=== PATIENT | male | born 1935 | race Caucasian/White ===

== ENCOUNTER 2020-09-09 16:40 | Outpatient (CLI) | payer OTHER, MEDICARE, SELFPAY | END 2020-09-09 16:41 | disposition home or self-care (01) | LOC: ANHCOVIDVC 16:41 | PROVIDERS: PCP Family Medicine Adolescent Medicine | DX: Z23 Encounter for immunization (principal) | CPT/HCPCS: 0001A; 91300 ==

== ENCOUNTER 2020-09-30 16:47 | Outpatient (CLI) | payer OTHER, MEDICARE, SELFPAY | END 2020-09-30 16:48 | LOC: ANHCOVIDVC 16:47 | PROVIDERS: PCP Family Medicine Adolescent Medicine | DX: Z23 Encounter for immunization (principal) | CPT/HCPCS: 0001A; 0002A; 91300 ==

== ENCOUNTER 2021-02-20 08:47 | Inpatient (IN) | payer OTHER, SELFPAY ==
[2021-02-20] VITALS (15 sets, daily range): BP systolic 115–149; BP diastolic 52–75; PULSE 72–97; RESP 14–24; TEMP 36.2–37.2; O2SAT 98–100; BMI 19.0
--- NOTE | ~2021-02-20 | CT_ITS ---
EXAMINATION: CT abdomen pelvis w con INDICATION: Abdominal pain and constipation TECHNIQUE: Computed tomographic images of the abdomen and pelvis were obtained after the administrati on of 100 cc of Omnipaque 350 intravenous contrast. The dose-length product (DLP) was 258.65 mGy-cm. Automated exposure control and iterative reconstruction technique were employed. COMPARISON: None available FINDINGS: Minimal dependent atelectasis is present in the lung bases. The heart size is normal. The l iver, gallbladder, and adrenal glands are normal. Punctate calcifications in an otherwise normal sple en likely represent healed granulomatous disease. Calcifications in the pancreas are consistent with chronic pancreatitis. There is an intraductal calcification in the body of the pancreas which causes ductal dilatation and atrophy in the tail of the pancreas. Cysts of the kidneys measure up to 2.5 cm on the left. There is calcified atherosclerosis of the aorta and many of the other arteries. No patho logically enlarged abdominal or pelvic lymph nodes are identified. A moderate volume of colonic stool is present. The appendix is normal. Colonic diverticulosis is present without evidence of diverticul itis. There are no dilated loops of bowel. There appears to be a small defect in the posterior wall o f the duodenal bulb with a small amount of adjacent fluid and tiny foci of gas. No definite surroundi ng inflammatory change is identified. There is severe lumbar spondylosis. IMPRESSION: 1. Constipation 2. Tiny defect in the posterior wall of the duodenal bulb without significant surrounding inflammator y change. Findings favor a diverticulum over ulceration. 3. Chronic pancreatitis with intraductal stone of the mid body causing ductal dilatation and atrophy in the pancreatic tail. Reviewed, dictated and finalized at location A. IMPRESSION: 1. Constipation 2. Tiny defect in the posterior wall of the duodenal bulb without significant s urrounding inflammatory change. Findings favor a diverticulum over ulceration. 3. Chronic pancreatitis with intraductal stone of the mid body causing ductal d ilatation and atrophy in the pancreatic tail.
--- NOTE | 2021-02-20 08:52 | ED.ABDPAIN ---
HPI - Abdominal Pain General Chief Complaint: Abdominal Pain Stated Complaint: CONSTIPATION Source: RN notes reviewed History of Present Illness HPI narrative: Patient presents emergency department from home f via EMS for abdominal pain. Patient states that he has been experiencing abdominal pain for the past 2 days pain is described as cramping in the bilateral lower abdomen states was associated with 1 episode nausea and vomiting last night but denies any nausea currently patient states he has been constipated with no bowel movement for the past 1 week. States he does take a daily stool softener but not take it this morning he denies any fever chills chest pain shortness of breath or any other symptoms states he had been on pain medicine last month since getting his left knee replaced but is not been on any pain medication for the past several Related Data Home Medications Medication Instructions Recorded Confirmed hydrochlorothiazide 25 mg tablet 25 mg PO DAILY 12/02/20 levothyroxine 112 mcg capsule 112 mcg PO DAILY 12/02/20 memantine 10 mg tablet 10 mg PO QPM 12/02/20 quetiapine 25 mg tablet 25 mg PO QHS 12/02/20 quinapril 40 mg tablet 40 mg PO DAILY 12/02/20 docusate sodium 100 mg PO DAILY 02/20/21 latanoprost drp 02/20/21 timolol maleate drp 02/20/21 Allergies Allergy/AdvReac Type Severity Reaction Status Date / Time No Known Allergies Allergy Verified 02/20/21 08:52 Review of Systems Review of Systems: Gen.: Denies fevers or chills ENT: Denies congestion Respiratory: Denies shortness of breath or cough CV: Denies chest pain or palpitations GI: See HPI denies burning, urgency, frequency or hematuria Musculoskeletal: Denies back pain or muscle pain Neuro: Denies numbness, tingling, weakness or focal weakness Skin: Denies rash Except as documented, all other systems reviewed and negative [facility] Past Medical History Medical History Arthritis Hypertension Stroke Thyroid disorder Family History Family History (Updated 12/02/20 @ 13:41 by Holli Alcantar MA) Mother Hypertension Cerebrovascular accident Sibling Hypertension Social History Social History (Updated 02/20/21 @ 08:53 by Mars Amor DO) Smoking status: Never smoker Exam Narrative: APPEARANCE: No acute distress, nontoxic, resting in bed HEENT: Normocephalic, atraumatic, OMM RESPIRATORY: No respiratory distress, clear to auscultation bilaterally with no rhonchi wheezing or rales CARDIOVASCULAR: RRR s murmur ABDOMINAL: Soft nondistended tender palpation right lower quadrant left lower quadrant no tenderness right upper quadrant left upper quadrant no rebound or guarding Rectal: No hemorrhoids or fissures black stool present that is Hemoccult positive MUSCULOSKELETAl: Moves all extremities. No clubbing, cyanosis or edema. NEURO: Awake and alert. Following commands, speech normal, no focal deficits SKIN:: Warm, dry. Normal Color PSYCHIATRIC: Normal affect/mood Course Course Emergency Course: Discussed with Dr. Lund who agrees with consult Discussed with Dr. Alonso for hospitalist service agrees with admission at this time agrees with plan for transfusion 2 units PRBC Discussed with patient and family results of workup and diagnosis. Discussed need for admission. Patient and family understand and agree to current treatment plan Vital Signs Vital signs: Vital Signs Temperature 98.9 F 02/20/21 08:43 Pulse Rate 92 02/20/21 08:43 Respiratory Rate 15 02/20/21 08:43 Blood Pressure 149/75 H 02/20/21 08:43 Pulse Oximetry 100 02/20/21 08:43 Temperature 97.2 F L 02/20/21 09:43 Pulse Rate 88 02/20/21 09:43 Respiratory Rate 24 H 02/20/21 09:43 Blood Pressure 122/70 02/20/21 09:43 Pulse Oximetry 100 02/20/21 09:43 MDM - Abdominal Pain Lab Data Result diagrams: 02/20/21 09:08 02/20/21 09:08 Labs: La
--- NOTE | 2021-02-20 08:59 | PC.NURSE ---
Patient informed that urine sample is needed. He tells me he is unable to go at this time. I informed patient that I will take him to restroom in about 20 minutes to provided urine.
--- NOTE | 2021-02-20 09:01 | PC.NURSE ---
Patient was asked about the medications he takes at home. Patient tells me he does not know what medications he takes and that his son is apparently coming to the ED with a list of medications for the patient.
[2021-02-20 09:14] LABS: Basophils Percent Auto 0.3 % (0.2-1.2); Eosinophils Percent Auto 0.5 % (0-4.4); Hematocrit 21.4 % (42.0-52.0); Immature Granulocyte Absolute 0.04 K/mm3 (0.00-0.031); Immature Granulocyte Percent A 0.5 % (0-0.5); Lymphocytes Absolute Auto 1.09 K/mm3 (0.9-3.2); Lymphocytes Percent Auto 14.9 % (18.3-44.2); Mean Corpuscular HGB Conc 31.8 g/dl (32-36); Mean Corpuscular Hemoglobin 23.1 pg (26-34); Mean Corpuscular Volume 72.8 fl (80-100); Mean Platelet Volume 8.6 fl (7.4-10.4); Monocytes Absolute Auto 0.6 K/mm3 (0.1-0.6); Monocytes Percent Auto 8.5 % (2.6-8.5); Neutrophils Absolute Auto 5.5 K/mm3 (1.3-6.7); Neutrophils Percent Auto 75.3 % (45.5-73.1); Platelet Count Result 555 k/mm3 (150-375); Red Blood Count 2.94 M/mm3 (4.6-6.20); White Blood Count 7.3 K/mm3 (4.5-10.0)
[2021-02-20 09:20] LABS: Hemoglobin 6.8 g/dL (14.0-18.0)
--- NOTE | 2021-02-20 09:24 | ECG_ITS ---
Measurements Intervals [place] Rate: 99 P: 79 WV: 188 QRS: -74 QRSD: 153 T: 86 QT: 387 QTc: 498 Interpretive Statements SINUS RHYTHM VENTRICULAR PREMATURE COMPLEXES RIGHT BUNDLE BRANCH BLOCK LEFT ANTERIOR FASCICULAR BLOCK BASELINE ARTIFACT- II, III, AVR, AVF, V2-V6 ABNORMAL ECG Electronically Signed On 02-20-2021 14:19:44 CDT by [place] Sal D.O.
[2021-02-20 09:38] LABS: Alanine Aminotransferase 13 U/L (4-50); Albumin Level 3.8 g/dL (3.5-5.1); Alkaline Phosphatase 109 U/L (38-126); Anion Gap 11 mmol/L (8-16); Aspartate Amino Transferase 23 U/L (17-59); Bilirubin,Total 0.4 mg/dL (0.2-1.3); Blood Urea Nitrogen 22 mg/dL (9-20); Calcium 9.4 mg/dL (8.4-10.2); Carbon Dioxide 29 mmol/L (22-30); Chloride 82 mmol/L (98-107); Estimated CRCL calculation 35 ml/min; Estimated Glomerular Filt Rate 58; Glucose 140 mg/dL (65-110); Lipase 28 U/L (23-300); Potassium 3.4 mmol/L (3.4-5.0); Sodium 122 mmol/L (137-145)
[2021-02-20 10:03] LABS: INR 0.9; Prothrombin Time 11.9 Seconds (11.1-14.7)
[2021-02-20 10:04] LABS: Add Urine Microscopic? YES; Amorphous Sediment Urine Few; Appearance Urine Cloudy (Clear); Bacteria Urine Trace /hpf; Bilirubin Urine Negative (Negative); Blood Urine Negative (Negative); Color Urine Yellow (Yellow); Glucose Urine UA Negative (Negative); Ketones Urine 1+ mg/dL (Negative); Leukocyte Esterase Ur Negative LEU/UL (Negative); Nitrate Urine Negative (Negative); Partial Thromboplastin Time 26.4 SECONDS (22.3-36.8); Protein Urine Negative (Negative); RBC Urine 0-2 /hpf (0-2); Specific Grav Ur 1.014 (1.001-1.035); Urobilinogen Urine Negative mg/dL (<2.0); WBC Urine 0-3 /hpf
[2021-02-20 11:39] LABS: Hematocrit 21.6 % (42.0-52.0)
[2021-02-20 11:44] LABS: Hemoglobin 6.9 g/dL (14.0-18.0)
--- NOTE | 2021-02-20 11:55 | PC.NURSE ---
Viktor Mai (son and POA): [phone] primary contact.
--- NOTE | 2021-02-20 13:15 | PM.IMHP ---
H&P: HPI History of Present Illness Date/Time: 02/20/21 13:15 <Tanja Adams PA-C - Last Filed: 02/20/21 22:33> Chief Complaint: Abdominal pain. <Tanja Adams PA-C - Last Filed: 02/20/21 22:33> Narrative: This is an 85-year-old male with history of stroke, hypertension, and hypothyroidism who presented to the emergency department earlier today via EMS from home for evaluation of abdominal pain. The patient had his left knee replaced about a month ago for which he has been taking hydrocodone. Despite taking stool softeners he has been constipated and has not been able to have a bowel movement for approximately 1 week. Over the last couple of days he has had increasing lower abdominal discomfort that he has a hard time describing but he believes it is due to the constipation. He has also had nausea and decreased appetite and a couple of episodes of emesis as well. Hemoglobin and hematocrit were 6.8 and 21.3 respectively in the emergency department with an MCV of 72.8. With further questioning he does mention being placed on iron supplementation after his knee surgery and since that time his stools have been dark. He was not aware of any gross blood in the stool, however he was Hemoccult positive on rectal exam in the emergency department. He has been symptomatic with regards to the anemia with lightheadedness and dizziness over the past couple of weeks. He also reports 2 syncopal episodes at home within the last several days though reports no injuries or head trauma. No significant epigastric discomfort, belching, or bloating. He denies hematemesis. <Tanja Adams PA-C - Last Filed: 02/20/21 22:33> Review of Systems Review of Systems: Twelve systems were reviewed with pertinent positives and negatives as per HPI. Patient has lost weight within the last year, down to 126 from 158 lb. He attributes that to the fact that he had a majority of his teeth pulled is wearing dentures, as well as decreased appetite since having his knee replaced in January 2021. He has no known history of malignancy. No fever, chills, or sweats. No recent cold or flu symptoms. He denies chest pain pleuritic pain. No cough or shortness of breath. No hematuria. Except as documented, all other systems were reviewed and are negative. <Tanja Adams PA-C - Last Filed: 02/20/21 22:33> [facility] Past Medical History Medical History: Medical History (Updated 02/21/21 @ 09:39 by Amado Nix MD) Acute blood loss anemia Anemia Arthritis Carotid artery disease Carotid Doppler in September 2017 showed 50 to 69% stenosis in the right internal carotid artery. Cerebrovascular accident (09/2017) Chronic hyponatremia Dementia Glaucoma Hyperlipidemia Hypertension Hypothyroidism Kidney stones <Tanja Adams PA-C - Last Filed: 02/20/21 22:33> Surgical History Surgical History: Surgical History History of cataract extraction (2013) History of vasectomy <Tanja Adams PA-C - Last Filed: 02/20/21 22:33> Family History Family History: Family History Mother Hypertension Cerebrovascular accident Sibling Hypertension Diabetes mellitus <Tanja Adams PA-C - Last Filed: 02/20/21 22:33> Social History Social History: Social History (Updated 02/20/21 @ 22:29 by Tanja Adams PA-C) Social History: The patient lives in [place] with his . Retired tow truck driver. Previously smokes cigarettes and to tobacco but quit over 10 years ago. Smoked 1 to 2 cigars a day up until 02/06/2021. No alcohol or illicit substance abuse. Surrogate decision maker: Viktor Mai, son. Code status: Full code. <Tanja Adams PA-C - Last Filed: 02/20/21 22:33> Meds Home Medications and Allergies Home medications: Home Medications Medication Instructions Recorded Confi
[2021-02-20] MEDS: SODIUM CHLORIDE 0.9% IV 250 ML 30 ML IV CONT (14:09)
[2021-02-20 14:10] LABS: Hematocrit 21.3 % (42.0-52.0)
[2021-02-20 14:19] LABS: Hemoglobin 6.8 g/dL (14.0-18.0)
--- NOTE | 2021-02-20 14:36 | ADMGEN ---
This patient, Blade Mai, was admitted to Medical Room 342-01. Patient/family oriented to hospital policies and general routines including ID bracelet, bed and alarms, visiting hours, pain management, procedures, bathroom and other care routines, personal items, smoking policy, room service/diet, and visiting hours. Information on how to activate the Rapid Response Team has been discussed. Patient/Family are encouraged to report perceived risks to care and to ask questions if they do not understand what they are told or what they should do.
--- NOTE | 2021-02-20 17:03 | WPDGICN ---
Assessment and Plan Assessment and plan (1) GI bleed: Code(s): K92.2 - Gastrointestinal hemorrhage, unspecified Status: Acute Assessment and Plan: we will proceed with egd and colonoscopy Monday, he is getting blood transfusion also noted possible abnormal finding in duodenum (ulcer vs dicerticula) on protonix (2) Acute blood loss anemia: Code(s): D62 - Acute posthemorrhagic anemia Status: Acute Assessment and Plan: continue to trend h/h and for signs of bleeding (3) Hyponatremia: Code(s): E87.1 - Hypo-osmolality and hyponatremia Status: Acute (4) Constipation: Code(s): K59.00 - Constipation, unspecified Status: Acute Assessment and Plan: probably from narcotic use will give bowel prep and also proceed with colonoscopy GI Consult Note Consult date/time: 02/20/21 17:03 Reason for consult: gib, acute blood loss anemia HPI: Blade Mai is a 85 year old male with history of HTN, knee surgery last month for which he took hydrocodone and iron but not longer using. He came here with generalized weakness, also about 7 days ago noted dark stools and has not had more BM's since (he became constipation after using narcotics). He had colonoscopy about 25 years go. Also had weight loss ~ 20 lb after removed some teeth and unable to chew and eat well. Yesterday had moderated epigastric discomfort. Labs showed microcytic anemia with hb 6.8 and now he is getting blood transfusion, BUN 22, creat 1.2. CT a/p reviewed, Constipation, tiny defect in the posterior wall of the duodenal bulb without significant surrounding inflammatory change. Findings favor a diverticulum over ulceration, chronic pancreatitis. He is comfortable now, no more abdominal pain. Review of Systems Constitutional: Constitutional: Reports weakness Eyes: Eyes: Denies blurry vision ENT: Reports Normal hearing present Cardiovascular: Cardiovascular: Denies chest pain Respiratory: Respiratory: Denies hemoptysis Gastrointestinal: Gastrointestinal: Reports abdominal pain and Reports constipation Genitourinary: Genitourinary: Denies dysuria Musculoskeletal: Musculoskeletal: Denies neck pain Integumentary/Breasts: Skin/Breast: Denies dry skin Neurologic: Denies headache(s) Psychiatric: Psychiatric: Reports no additional psychiatric complaints PMFSH Past Medical History Medical History (Updated 02/21/21 @ 09:39 by Amado Nix MD) Acute blood loss anemia Anemia Arthritis Carotid artery disease Carotid Doppler in September 2017 showed 50 to 69% stenosis in the right internal carotid artery. Cerebrovascular accident (09/2017) Chronic hyponatremia Dementia Glaucoma Hyperlipidemia Hypertension Hypothyroidism Kidney stones Surgical History Surgical History History of cataract extraction (2013) History of vasectomy Family History Family History Mother Hypertension Cerebrovascular accident Sibling Hypertension Diabetes mellitus Social History Social History (Updated 02/20/21 @ 22:29 by Tanja Adams PA-C) Social History: The patient lives in [place] with his . Retired water truck driver. Previously smokes cigarettes and to tobacco but quit over 10 years ago. Smoked 1 to 2 cigars a day up until 02/06/2021. No alcohol or illicit substance abuse. Surrogate decision maker: Viktor Mai, son. Code status: Full code. Meds Home Medications and Allergies Home Medications Medication Instructions Recorded Confirmed Type hydrochlorothiazide 25 mg tablet 25 mg PO DAILY 12/02/20 02/20/21 History levothyroxine 112 mcg capsule 112 mcg PO DAILY 12/02/20 02/20/21 History memantine 10 mg tablet 10 mg PO QPM 12/02/20 02/20/21 History quetiapine 25 mg tablet 12.5 mg PO BID 12/02/20 02/20/21 History quinapril 40 mg tablet 20 mg PO DAILY 12/02/20
[2021-02-20] MEDS: PANTOPRAZOLE SODIUM IV 40 MG VIAL IV PUSH ×2 (17:12→20:06)
[2021-02-20] MEDS: MEMANTINE 10 MG TABLET PO (17:12)
[2021-02-20] MEDS: QUEtiapine FUMARATE 12.5 MG TABLET PO (17:12)
[2021-02-20] MEDS: LATANOPROST 0.005% OP SOLN 2.5 ML BTL 1 DROP EACH EYE (20:05)
[2021-02-20 20:11] LABS: Sodium Urine Random 73 meq/L
[2021-02-20 22:55] LABS: Hematocrit 27.2 % (42.0-52.0); Hemoglobin 9.1 g/dL (14.0-18.0)
[2021-02-20 23:07] LABS: Anion Gap 10 mmol/L (8-16); Blood Urea Nitrogen 19 mg/dL (9-20); Calcium 9.1 mg/dL (8.4-10.2); Carbon Dioxide 28 mmol/L (22-30); Chloride 85 mmol/L (98-107); Estimated CRCL calculation 34 ml/min; Estimated Glomerular Filt Rate > 60; Glucose 102 mg/dL (65-110); Potassium 3.3 mmol/L (3.4-5.0); Sodium 123 mmol/L (137-145)
[2021-02-21] MEDS: SODIUM CHLORIDE 0.9% IV 1,000 ML 60 ML IV CONT ×2 (01:27→20:17)
[2021-02-21] MEDS: POTASSIUM CHLORIDE 20 MEQ TABLET PO (01:28)
[2021-02-21 03:17] LABS: Alanine Aminotransferase 12 U/L (4-50); Albumin Level 3.5 g/dL (3.5-5.1); Alkaline Phosphatase 101 U/L (38-126); Anion Gap 10 mmol/L (8-16); Aspartate Amino Transferase 22 U/L (17-59); Basophils Percent Auto 0.5 % (0.2-1.2); Bilirubin,Total 1.4 mg/dL (0.2-1.3); Blood Urea Nitrogen 19 mg/dL (9-20); Carbon Dioxide 26 mmol/L (22-30); Chloride 87 mmol/L (98-107); Eosinophils Absolute Auto 0.1 K/mm3 (0-0.3); Eosinophils Percent Auto 1.2 % (0-4.4); Estimated CRCL calculation 34 ml/min; Estimated Glomerular Filt Rate > 60; Glucose 94 mg/dL (65-110); Hematocrit 27.4 % (42.0-52.0); Immature Granulocyte Absolute 0.04 K/mm3 (0.00-0.031); Immature Granulocyte Percent A 0.5 % (0-0.5); Lymphocytes Absolute Auto 1.25 K/mm3 (0.9-3.2); Lymphocytes Percent Auto 16.7 % (18.3-44.2); Magnesium 1.8 mg/dL (1.6-2.3); Mean Corpuscular HGB Conc 32.8 g/dl (32-36); Mean Corpuscular Hemoglobin 25.2 pg (26-34); Mean Corpuscular Volume 76.8 fl (80-100); Mean Platelet Volume 8.3 fl (7.4-10.4); Monocytes Absolute Auto 0.9 K/mm3 (0.1-0.6); Monocytes Percent Auto 11.4 % (2.6-8.5); Neutrophils Absolute Auto 5.2 K/mm3 (1.3-6.7); Neutrophils Percent Auto 69.7 % (45.5-73.1); Platelet Count Result 435 k/mm3 (150-375); Potassium 3.4 mmol/L (3.4-5.0); Red Blood Count 3.57 M/mm3 (4.6-6.20); Red Cell Distribution Width 16.8 % (11.5-14.5); Sodium 123 mmol/L (137-145); White Blood Count 7.5 K/mm3 (4.5-10.0)
[2021-02-21] MEDS: LEVOTHYROXINE SODIUM 112 MCG TABLET PO (05:50)
[2021-02-21 06:00] VITALS: BP 129/58; PULSE 80; RESP 14; TEMP 36.7; O2SAT 97
[2021-02-21 09:38] VITALS: BP 110/52
--- NOTE | 2021-02-21 09:41 | WPDGIPROGNO ---
Progress Note: A&P Assessment and Plan (1) GI bleed: Code(s): K92.2 - Gastrointestinal hemorrhage, unspecified Status: Acute Assessment and Plan: plan for egd and colonoscopy tomorrow hb up after blood transfusion, no more obvious signs of bleeding (2) Acute blood loss anemia: Code(s): D62 - Acute posthemorrhagic anemia Status: Acute Assessment and Plan: trend h/h scopes tomorrow (3) Constipation: Code(s): K59.00 - Constipation, unspecified Status: Acute Assessment and Plan: will give extra mag citrate tonight (4) Hyponatremia: Code(s): E87.1 - Hypo-osmolality and hyponatremia Status: Acute Assessment and Plan: by primary, low but stable Subjective Date/time seen: 02/21/21 09:41 Interval history: no more abdominal pain, he is comfortable and feeling better after blood transfusion Review of Systems Review of Systems: All systems reviewed & are unremarkable except as noted in HPI and below Exam Const: General: comfortable and no acute distress HENMT: General nose exam: Normal nares present Eyes: General: appearance normal, both eyes and all related structures Neck: Neck: no JVD Resp: Auscultation: clear to auscultation bilaterally Cardio: Rate: regular rate Rhythm: regular rhythm GI: Inspection: non-distended GI Palp: Yes Soft to palpation and No Tenderness to palpation present (GI) Auscultation: normal bowel sounds Skin: General skin exam: normal color Neuro: Speech: normal speech Motor exam (neuro): Normal motor muscle tone present throughout Extrem: General: normal to inspection Psych: Mental Status: mental status grossly normal Objective Data Vital Signs Vital Signs: Vital Signs - 24 hr 02/20/21 09:43 02/20/21 11:57 02/20/21 14:27 Temperature 97.2 F L 97.8 F 97.3 F L Pulse Rate 88 88 81 Respiratory Rate 24 H 15 16 Blood Pressure 122/70 121/67 121/62 Pulse Oximetry 100 98 100 02/20/21 14:40 02/20/21 15:30 02/20/21 15:40 Temperature 97.4 F L 98 F Pulse Rate 90 86 Respiratory Rate 16 16 Blood Pressure 120/56 L 116/70 Pulse Oximetry 100 99 100 02/20/21 16:40 02/20/21 16:50 02/20/21 18:50 Temperature 97.9 F 97.9 F 98.4 F Pulse Rate 86 86 79 Respiratory Rate 14 16 20 Blood Pressure 116/64 116/64 133/56 L Pulse Oximetry 100 100 100 02/20/21 19:05 02/20/21 19:50 02/20/21 20:05 Temperature 98.1 F 98.5 F 98.2 F Pulse Rate 88 75 85 Respiratory Rate 16 16 16 Blood Pressure 115/64 128/52 L 135/65 Pulse Oximetry 100 100 98 02/20/21 21:05 02/20/21 21:31 02/21/21 06:00 Temperature 97.4 F L 97.2 F L 98.0 F Pulse Rate 72 80 80 Respiratory Rate 14 14 14 Blood Pressure 136/56 L 123/59 L 129/58 L Pulse Oximetry 98 100 97 Intake/Output Intake/Output: Intake & Output 02/18/21 02/19/21 02/20/21 02/21/21 23:59 23:59 23:59 23:59 Intake Total 752 487 Output Total 480 250 Balance 272 237 Meds/Results Medications: Active Medications Generic Name Dose Route Start Last Admin Trade Name Freq PRN Reason Stop Dose Admin Bisacodyl 20 mg 02/21/21 16:00 Bisacodyl 5 Mg Tablet Ec PO 02/21/21 16:01 ONCE ONE Docusate Sodium 100 mg 02/21/21 09:00 Docusate Sodium 100 Mg Capsule PO DAILY WARD Sodium Chloride 1,000 mls @ 60 mls/hr 02/21/21 00:35 02/21/21 05:36 Normal Saline Iv IV CONT 60 mls/hr .[id number] WARD Infusion Latanoprost 1 drop 02/20/21 21:00 02/20/21 20:05 Latanoprost 0.005% Op Soln 2.5 Ml Btl EACH EYE 1 drop HS WARD Administration Levothyroxine Sodium 112 mcg 02/21/21 06:30 02/21/21 05:50 Levothyroxine Sodium 112 Mcg Tablet PO 112 mcg DAILY@0630 WARD Administration Lisinopril 20 mg 02/21/21 09:00 Lisinopril 20 Mg Tablet PO DAILY WARD Magnesium Citrate 300 ml 02/22/21 04:00 Magnesium Citrate 300 Ml Btl PO 02/22/21 04:01 ONCE ONE Pantoprazole Sodium 40 mg 02/20/21 21:00 02/20/21 20:06 Pantopra
[2021-02-21] MEDS: DOCUSATE SODIUM 100 MG CAPSULE PO (09:45)
[2021-02-21] MEDS: QUEtiapine FUMARATE 12.5 MG TABLET PO (09:45)
[2021-02-21] MEDS: lisinopriL 20 MG TABLET PO (09:45)
[2021-02-21] MEDS: TIMOLOL MALEATE 0.5% OP SOLN 5 ML BOTTLE 1 DROP EACH EYE (09:45)
--- NOTE | 2021-02-21 10:54 | PC.NURSE ---
unable to give 0900 protonix on time, pharmacy notified
--- NOTE | 2021-02-21 11:48 | PM.IMPN ---
Progress Note: A&P Assessment and Plan (1) GI bleed: Code(s): K92.2 - Gastrointestinal hemorrhage, unspecified Status: Acute Assessment and Plan: Concerning for upper GI bleed with dark, Hemoccult-positive stools. He has been started on IV Protonix 40 mg b.i.d. and will be transfused to a stable hemoglobin. NPO after midnight for possible endoscopy tomorrow. Dr. Nix has been consulted and his input is appreciated. (2) Hyponatremia: Code(s): E87.1 - Hypo-osmolality and hyponatremia Status: Acute Assessment and Plan: Patient has chronic hyponatremia on review of previous records and despite this he remains on hydrochlorothiazide. He is lower than what he typically runs today, however. He will be cautiously hydrated overnight as he may be a bit dry. Check TSH, urine and serum osmolalities, as well as urine sodium and creatinine. Continue to monitor sodium closely. (3) Constipation: Code(s): K59.00 - Constipation, unspecified Status: Acute Assessment and Plan: Patient will be going through bowel prep for endoscopy. (4) Dementia: Code(s): F03.90 - Unspecified dementia without behavioral disturbance Status: Acute Assessment and Plan: Continue memantine and quetiapine at bedtime. (5) Hypothyroidism: Code(s): E03.9 - Hypothyroidism, unspecified Status: Acute Assessment and Plan: Continue levothyroxine and check TSH. (6) Hypertension: Code(s): I10 - Essential (primary) hypertension Status: Acute Assessment and Plan: Blood pressures were reviewed and they are stable. Monitor closely as hydrochlorothiazide is on hold given hyponatremia. Scheduled for the EGD and colon exam in the morning. Subjective Date/time seen: 02/21/21 11:48 Patient was seen during the morning rounds today. No more abdominal pain. He is feeling more comfortable and feeling better after receiving blood transfusion. No shortness of breath or chest pain. No abdominal pain, no nausea vomiting. Mood stable. Review of Systems Review of Systems: All systems reviewed & are unremarkable except as noted in HPI and below (the history and physical examination.) Exam Narrative: General: Thin elderly male in the semi-Pimentel position in bed no distress. Weight: 55 kg. BMI: 19.0. HEENT: Normocephalic, atraumatic. PERRL, EOMI. Sclerae anicteric. Upper teeth she and a majority of the bottom teeth have been extracted. Moist mucous membranes. Neck: Supple. No JVD. Respiratory: Lungs are clear to auscultation bilaterally. Cardiovascular: Regular rate and rhythm with S1-S2. Gastrointestinal: Abdomen is soft, flat, and nondistended with positive bowel sounds. He is tender to palpation throughout the lower abdomen. No voluntary guarding or rebound tenderness. Rectal: Black stool, Hemoccult positive. Skin: Warm and dry. No rash or lesions on limited exam. Extremities: No cyanosis, clubbing, or edema. Radial and pedal pulses intact. Neurological: Alert. Cranial nerves 2-12 are grossly intact. No gross focal deficits to casual conversation. Psychiatric: Pleasant and cooperative with normal mood and affect. Objective Data Vital Signs Vital Signs: Vital Signs - 24 hr 02/20/21 11:57 02/20/21 14:27 02/20/21 14:40 Temperature 36.6 C 36.3 C L 36.3 C L Pulse Rate 88 81 90 Respiratory Rate 15 16 16 Blood Pressure 121/67 121/62 120/56 L Pulse Oximetry 98 100 100 02/20/21 15:30 02/20/21 15:40 02/20/21 16:40 Temperature 36.6 C 36.6 C Pulse Rate 86 86 Respiratory Rate 16 14 Blood Pressure 116/70 116/64 Pulse Oximetry 99 100 100 02/20/21 16:50 02/20/21 18:50 02/20/21 19:05 Temperature 36.6 C 36.9 C 36.7 C Pulse Rate 86 79 88 Respiratory Rate 16 20 16 Blood Pressure 116/64 133/56 L 115/64 Pulse Oximetry 100 100 100 02/20/21 19:50 02/20/21 20:05 02/20/21 21:05 Temperature 36.9 C 36.8 C 36.3 C L Pulse
[2021-02-21] MEDS: PANTOPRAZOLE SODIUM IV 40 MG VIAL IV PUSH ×2 (12:20→20:27)
[2021-02-21 14:00] VITALS: BP 150/78; PULSE 87; RESP 17; TEMP 36.6; O2SAT 100
[2021-02-21] MEDS: BISACODYL 5 MG TABLET EC 20 MG PO (17:37)
[2021-02-21] MEDS: polyethylene glycoL 3350 238 GM BOTTLE PO (18:28)
--- NOTE | 2021-02-21 18:40 | PC.NURSE ---
patient refused to take 1700 seroquel, he is worried that his PCP has taken him off of it and does not want to resume it here if he does not need to. I have tried to call his son to get a medication list to confirm whether he takes it at home still or not, but have gotten no answer.
[2021-02-21 19:47] VITALS: BP 152/51; PULSE 64; RESP 17; TEMP 37; O2SAT 99
[2021-02-21] MEDS: MAGNESIUM CITRATE 300 ML BTL 150 ML PO (20:19)
[2021-02-21] MEDS: LATANOPROST 0.005% OP SOLN 2.5 ML BTL 1 DROP EACH EYE (20:26)
[2021-02-22 03:55] VITALS: BP 122/70; PULSE 66; RESP 17; TEMP 36.6; O2SAT 100
[2021-02-22] MEDS: MAGNESIUM CITRATE 300 ML BTL PO (05:00)
[2021-02-22] MEDS: ONDANSETRON INJ 4 MG/2 ML VIAL IV PUSH (05:19)
[2021-02-22 06:16] LABS: Hematocrit 29.6 % (42.0-52.0); Hemoglobin 9.7 g/dL (14.0-18.0); Mean Corpuscular HGB Conc 32.8 g/dl (32-36); Mean Corpuscular Volume 76.3 fl (80-100); Mean Platelet Volume 8.8 fl (7.4-10.4); Platelet Count Result 566 k/mm3 (150-375); Red Blood Count 3.88 M/mm3 (4.6-6.20); Red Cell Distribution Width 16.9 % (11.5-14.5); White Blood Count 10.6 K/mm3 (4.5-10.0)
[2021-02-22 06:29] LABS: Alanine Aminotransferase 11 U/L (4-50); Albumin Level 3.5 g/dL (3.5-5.1); Alkaline Phosphatase 108 U/L (38-126); Anion Gap 9 mmol/L (8-16); Aspartate Amino Transferase 22 U/L (17-59); Bilirubin,Total 0.7 mg/dL (0.2-1.3); Blood Urea Nitrogen 18 mg/dL (9-20); Carbon Dioxide 24 mmol/L (22-30); Chloride 93 mmol/L (98-107); Estimated CRCL calculation 38 ml/min; Estimated Glomerular Filt Rate > 60; Glucose 105 mg/dL (65-110); Potassium 3.6 mmol/L (3.4-5.0); Sodium 126 mmol/L (137-145)
[2021-02-22] MEDS: PANTOPRAZOLE SODIUM IV 40 MG VIAL IV PUSH ×2 (09:52→20:20)
[2021-02-22] MEDS: QUEtiapine FUMARATE 12.5 MG TABLET PO ×2 (09:52→16:41)
[2021-02-22] MEDS: lisinopriL 20 MG TABLET PO (09:52)
[2021-02-22] MEDS: TIMOLOL MALEATE 0.5% OP SOLN 5 ML BOTTLE 1 DROP EACH EYE (09:52)
[2021-02-22 12:08] VITALS: BMI 19.3
--- NOTE | 2021-02-22 14:04 | PC.NURSE ---
Patient down to GI lab for EGD/colonoscopy.
[2021-02-22 14:17] VITALS: BP 110/52; PULSE 88; RESP 15; O2SAT 99
[2021-02-22] MEDS: LACTATED RINGERS 1,000 ML 150 ML IV CONT (14:19)
--- NOTE | 2021-02-22 14:21 | WPDANESEPPF ---
Anes - Initial Pre Proc Eval Procedure: Operation Date: 02/22/21 14:15 Proposed Procedures p Esophagogastroduodenoscopy & Colonoscopy - Amado Nix MD Date/Time: 02/22/21 14:21 Surgeon: Elieser Alonso MD Pre Op Diagnosis: gi bleed,hyponatremia,constipation Patient Data Age: 85 Gender: M Height: 1.7 m Weight: 56 kg Last Vital Signs Temp 36.6 C 02/22/21 03:55 Pulse 88 02/22/21 14:17 Resp 15 02/22/21 14:17 BP 110/52 L 02/22/21 14:17 Pulse Ox 99 02/22/21 14:17 Allergies Allergy/AdvReac Type Severity Reaction Status Date / Time No Known Allergies Allergy Verified 02/20/21 08:52 Home Medications Medication Instructions Recorded Confirmed Type hydrochlorothiazide 25 mg tablet 25 mg PO DAILY 12/02/20 02/20/21 History levothyroxine 112 mcg capsule 112 mcg PO DAILY 12/02/20 02/20/21 History memantine 10 mg tablet 10 mg PO QPM 12/02/20 02/20/21 History quetiapine 25 mg tablet 12.5 mg PO BID 12/02/20 02/20/21 History quinapril 40 mg tablet 20 mg PO DAILY 12/02/20 02/20/21 History docusate sodium 100 mg PO DAILY 02/20/21 02/20/21 History latanoprost 1 drp EACH EYE HS 02/20/21 02/20/21 History timolol maleate 1 drp EACH EYE QAM 02/20/21 02/20/21 History Laboratory Tests 02/22/21 02/22/21 05:36 05:36 WBC 10.6 K/mm3 H K/mm3 (4.5-10.0) RBC 3.88 M/mm3 L M/mm3 (4.6-6.20) Hgb 9.7 g/dL L g/dL (14.0-18.0) Hct 29.6 % L % (42.0-52.0) MCV 76.3 fl L fl (80-100) MCH 25.0 pg L pg (26-34) MCHC 32.8 g/dl g/dl (32-36) RDW 16.9 % H % (11.5-14.5) Plt Count 566 k/mm3 H k/mm3 (150-375) MPV 8.8 fl fl (7.4-10.4) Sodium 126 mmol/L L mmol/L (137-145) Potassium 3.6 mmol/L mmol/L (3.4-5.0) Chloride 93 mmol/L L mmol/L (98-107) Carbon Dioxide 24 mmol/L mmol/L (22-30) Anion Gap 9 mmol/L mmol/L (8-16) BUN 18 mg/dL mg/dL (9-20) Creatinine 1.00 mg/dL mg/dL (0.7-1.3) Estim Creat Clear Calc 38 ml/min ml/min Estimated GFR > 60 (59 - ) Glucose 105 mg/dL mg/dL (65-110) Calcium 9.0 mg/dL mg/dL (8.4-10.2) Total Bilirubin 0.7 mg/dL mg/dL (0.2-1.3) AST 22 U/L U/L (17-59) ALT 11 U/L U/L (4-50) Alkaline Phosphatase 108 U/L U/L (38-126) Total Protein 6.0 g/dL L g/dL (6.3-8.2) Albumin 3.5 g/dL g/dL (3.5-5.1) Patient hx anesthesia problems: none Family hx anesthesia problems: none [facility] Past Medical History Medical History Acute blood loss anemia Anemia Arthritis Carotid artery disease Carotid Doppler in September 2017 showed 50 to 69% stenosis in the right internal carotid artery. Cerebrovascular accident (09/2017) Chronic hyponatremia Dementia Glaucoma Hyperlipidemia Hypertension Hypothyroidism Kidney stones Surgical History Surgical History History of cataract extraction (2013) History of vasectomy Family History Family History Mother Hypertension Cerebrovascular accident Sibling Hypertension Diabetes mellitus Social History Social History Social History: The patient lives in [place] with his . Retired fork truck driver. Previously smokes cigarettes and to tobacco but quit over 10 years ago. Smoked 1 to 2 cigars a day up until 02/06/2021. No alcohol or illicit substance abuse. Surrogate decision maker: Viktor Mai, son. Code status: Full code. Spiritual care concerns: No Anes - Eval Final PreProcedure Day of Procedure 02/22/21 14:21 Patient weight: normal Heart: regular rate and rhythm Lungs: clear to auscultation Airway: Mallampati scale class II Neurological: other (alert) Last oral intake: >/= 8 hours ASA c
[2021-02-22 15:21] VITALS: BP 108/56; PULSE 85; RESP 18; O2SAT 99
[2021-02-22 15:31] VITALS: BP 110/54; PULSE 82; RESP 14; O2SAT 99
[2021-02-22 15:41] VITALS: BP 121/66; PULSE 84; RESP 13; O2SAT 99
--- NOTE | 2021-02-22 15:58 | PM.IMPN ---
Progress Note: A&P Assessment and Plan (1) GI bleed: Code(s): K92.2 - Gastrointestinal hemorrhage, unspecified Status: Acute Assessment and Plan: Concerning for upper GI bleed with dark, Hemoccult-positive stools. He has been started on IV Protonix 40 mg b.i.d. and will be transfused to a stable hemoglobin. NPO after midnight for possible endoscopy tomorrow. Dr. Nix has been consulted and his input is appreciated. 02/22 interval history patient states abdominal pain is better still has a dark stool no darryl bleeding or hematemesis seen by GI and patient is scheduled for EGD and colonoscopy, EGD showed gastritis unspecified duodenal ulcer, colonoscopy showed diverticulosis without perforation or bleeding, colonic polyps, internal hemorrhoids, GI recommending Protonix b.i.d. and avoid NSAID (2) Hyponatremia: Code(s): E87.1 - Hypo-osmolality and hyponatremia Status: Acute Assessment and Plan: Patient has chronic hyponatremia on review of previous records and despite this he remains on hydrochlorothiazide. He is lower than what he typically runs today, however. He will be cautiously hydrated overnight as he may be a bit dry. Check TSH, urine and serum osmolalities, as well as urine sodium and creatinine. Continue to monitor sodium closely. (3) Constipation: Code(s): K59.00 - Constipation, unspecified Status: Acute Assessment and Plan: Patient will be going through bowel prep for endoscopy. (4) Dementia: Code(s): F03.90 - Unspecified dementia without behavioral disturbance Status: Acute Assessment and Plan: Continue memantine and quetiapine at bedtime. (5) Hypothyroidism: Code(s): E03.9 - Hypothyroidism, unspecified Status: Acute Assessment and Plan: Continue levothyroxine and check TSH. (6) Hypertension: Code(s): I10 - Essential (primary) hypertension Status: Acute Assessment and Plan: Blood pressures were reviewed and they are stable. Monitor closely as hydrochlorothiazide is on hold given hyponatremia. Scheduled for the EGD and colon exam in the morning. Subjective Date/time seen: 02/22/21 15:58 This is an 85-year-old male with history of stroke, hypertension, and hypothyroidism who presented to the emergency department earlier today via EMS from home for evaluation of abdominal pain. The patient had his left knee replaced about a month ago for which he has been taking hydrocodone. Despite taking stool softeners he has been constipated and has not been able to have a bowel movement for approximately 1 week. Over the last couple of days he has had increasing lower abdominal discomfort that he has a hard time describing but he believes it is due to the constipation. He has also had nausea and decreased appetite and a couple of episodes of emesis as well. Hemoglobin and hematocrit were 6.8 and 21.3 respectively in the emergency department with an MCV of 72.8. With further questioning he does mention being placed on iron supplementation after his knee surgery and since that time his stools have been dark. He was not aware of any gross blood in the stool, however he was Hemoccult positive on rectal exam in the emergency department. He has been symptomatic with regards to the anemia with lightheadedness and dizziness over the past couple of weeks. He also reports 2 syncopal episodes at home within the last several days though reports no injuries or head trauma. No significant epigastric discomfort, belching, or bloating. He denies hematemesis 02/22 interval history patient states abdominal pain is better still has a dark stool no darryl bleeding or hematemesis seen by GI and patient is scheduled for EGD and colonoscopy, EGD showed gastritis unspecified duodenal ulcer, colonoscopy showed diverticulosis without perforation or bleeding, colonic polyps, internal hemorrhoids, GI recommending Protonix b.i.d. and avoi
[2021-02-22] MEDS: SODIUM CHLORIDE 0.9% IV 1,000 ML 60 ML IV CONT (16:42)
[2021-02-22] MEDS: LATANOPROST 0.005% OP SOLN 2.5 ML BTL 1 DROP EACH EYE (20:20)
[2021-02-22 21:53] VITALS: BP 105/56; PULSE 84; RESP 17; TEMP 36.3; O2SAT 95
[2021-02-23] MEDS: LEVOTHYROXINE SODIUM 112 MCG TABLET PO (05:11)
[2021-02-23 05:12] VITALS: BP 110/44; PULSE 85; RESP 18; TEMP 36.6; O2SAT 97
[2021-02-23] MEDS: QUEtiapine FUMARATE 12.5 MG TABLET PO ×2 (08:29→17:14)
[2021-02-23] MEDS: DOCUSATE SODIUM 100 MG CAPSULE PO (08:29)
[2021-02-23] MEDS: PANTOPRAZOLE SODIUM IV 40 MG VIAL IV PUSH (08:29)
[2021-02-23] MEDS: lisinopriL 20 MG TABLET PO (08:29)
[2021-02-23] MEDS: TIMOLOL MALEATE 0.5% OP SOLN 5 ML BOTTLE 1 DROP EACH EYE (08:29)
--- NOTE | 2021-02-23 11:58 | PM.IMPN ---
Progress Note: A&P Assessment and Plan (1) GI bleed: Code(s): K92.2 - Gastrointestinal hemorrhage, unspecified Status: Resolved Assessment and Plan: Concerning for upper GI bleed with dark, Hemoccult-positive stools. He has been started on IV Protonix 40 mg b.i.d. and will be transfused to a stable hemoglobin. NPO after midnight for possible endoscopy tomorrow. Dr. Nix has been consulted and his input is appreciated. 02/22 interval history patient states abdominal pain is better still has a dark stool no darryl bleeding or hematemesis seen by GI and patient is scheduled for EGD and colonoscopy, EGD showed gastritis unspecified duodenal ulcer, colonoscopy showed diverticulosis without perforation or bleeding, colonic polyps, internal hemorrhoids, GI recommending Protonix b.i.d. and avoid NSAID (2) Hyponatremia: Code(s): E87.1 - Hypo-osmolality and hyponatremia Status: Acute Assessment and Plan: Patient has chronic hyponatremia on review of previous records and despite this he remains on hydrochlorothiazide. Slowly improving. Sodium is 126. (3) Constipation: Code(s): K59.00 - Constipation, unspecified Status: Acute Assessment and Plan: sp EGD and colonoscopy Monday (4) Dementia: Code(s): F03.90 - Unspecified dementia without behavioral disturbance Status: Acute Assessment and Plan: Continue memantine and quetiapine at bedtime. (5) Hypothyroidism: Code(s): E03.9 - Hypothyroidism, unspecified Status: Acute Assessment and Plan: Continue levothyroxine and check TSH. (6) Hypertension: Code(s): I10 - Essential (primary) hypertension Status: Acute Assessment and Plan: Blood pressures were reviewed and they are stable. Subjective Date/time seen: 02/23/21 11:58 Interval history: 85-year-old male with history of stroke, hypertension, and hypothyroidism who presented to the emergency department earlier today via EMS from home for evaluation of abdominal pain. The patient had his left knee replaced about a month ago for which he has been taking hydrocodone. Despite taking stool softeners he has been constipated and has not been able to have a bowel movement for approximately 1 week. Over the last couple of days he has had increasing lower abdominal discomfort that he has a hard time describing but he believes it is due to the constipation. He has also had nausea and decreased appetite and a couple of episodes of emesis as well. Hemoglobin and hematocrit were 6.8 and 21.3 respectively in the emergency department with an MCV of 72.8. With further questioning he does mention being placed on iron supplementation after his knee surgery and since that time his stools have been dark. He was not aware of any gross blood in the stool, however he was Hemoccult positive on rectal exam in the emergency department. He has been symptomatic with regards to the anemia with lightheadedness and dizziness over the past couple of weeks. He also reports 2 syncopal episodes at home within the last several days though reports no injuries or head trauma. No significant epigastric discomfort, belching, or bloating. He denies hematemesis 02/22 interval history patient states abdominal pain is better still has a dark stool no darryl bleeding or hematemesis seen by GI and patient is scheduled for EGD and colonoscopy, EGD showed gastritis unspecified duodenal ulcer, colonoscopy showed diverticulosis without perforation or bleeding, colonic polyps, internal hemorrhoids, GI recommending Protonix b.i.d. and avoid NSAID. Review of Systems Review of Systems: All systems reviewed & are unremarkable except as noted in HPI and below Exam Narrative: Patient is comfortable HEENT: eyes are clear and none icteric LUNGS:Clear lungs HEART: RR S1S2 ABD: BS+, Soft and nontender Lower extremities: no edema SKIN: nonjaundiced Neuro: grossl
[2021-02-23 14:19] VITALS: BP 109/53; PULSE 71; RESP 16; TEMP 36.8; O2SAT 99
--- NOTE | 2021-02-23 14:56 | WPDGIPROGNO ---
Progress Note: A&P Assessment and Plan (1) Duodenal ulcer: Code(s): K26.9 - Duodenal ulcer, unspecified as acute or chronic, without hemorrhage or perforation Status: Acute Assessment and Plan: he can go home with protonix bid and we can repeat EGD in 3 months to assess for healing no need to repeat another colonoscopy (2) GI bleed: Code(s): K92.2 - Gastrointestinal hemorrhage, unspecified Status: Resolved Assessment and Plan: resolved avoid using narcotics (3) Acute blood loss anemia: Code(s): D62 - Acute posthemorrhagic anemia Status: Acute Assessment and Plan: hb responded appropriately to blood transfusion Subjective Date/time seen: 02/23/21 14:56 Interval history: large duodenal ulcer yesterday, no active bleeding but dark spot treated with gold-probe, colonoscopy no signs of bleeding. He is doing well and feeling like going home today. Review of Systems Review of Systems: All systems reviewed & are unremarkable except as noted in HPI and below Exam Const: General: comfortable and no acute distress HENMT: General nose exam: Normal nares present Eyes: General: appearance normal, both eyes and all related structures Neck: Neck: no JVD Resp: Auscultation: clear to auscultation bilaterally Cardio: Rate: regular rate Rhythm: regular rhythm GI: Inspection: non-distended GI Palp: Yes Soft to palpation Skin: General skin exam: normal color Neuro: General: gait normal Speech: normal speech Extrem: General: normal to inspection Psych: Mental Status: mental status grossly normal Objective Data Vital Signs Vital Signs: Vital Signs - 24 hr 02/22/21 15:21 02/22/21 15:31 02/22/21 15:41 Temperature Pulse Rate 85 82 84 Respiratory Rate 18 14 13 Blood Pressure 108/56 L 110/54 L 121/66 Pulse Oximetry 99 99 99 02/22/21 21:53 02/23/21 05:12 02/23/21 14:19 Temperature 97.4 F L 97.8 F 98.3 F Pulse Rate 84 85 71 Respiratory Rate 17 18 16 Blood Pressure 105/56 L 110/44 L 109/53 L Pulse Oximetry 95 97 99 Intake/Output Intake/Output: Intake & Output 02/20/21 02/21/21 02/22/21 02/23/21 23:59 23:59 23:59 23:59 Intake Total 752 1720 1370 860 Output Total 480 250 750 550 Balance 272 1470 133 310 Meds/Results Medications: Active Medications Generic Name Dose Route Start Last Admin Trade Name Freq PRN Reason Stop Dose Admin Docusate Sodium 100 mg 02/21/21 09:00 02/23/21 08:29 Docusate Sodium 100 Mg Capsule PO 100 mg DAILY WARD Administration Sodium Chloride 1,000 mls @ 60 mls/hr 02/21/21 00:35 02/22/21 16:42 Normal Saline Iv IV CONT 60 mls/hr .[id number] WARD Administration Latanoprost 1 drop 02/20/21 21:00 02/22/21 20:20 Latanoprost 0.005% Op Soln 2.5 Ml Btl EACH EYE 1 drop HS WARD Administration Levothyroxine Sodium 112 mcg 02/21/21 06:30 02/23/21 05:11 Levothyroxine Sodium 112 Mcg Tablet PO 112 mcg DAILY@0630 WARD Administration Lisinopril 20 mg 02/21/21 09:00 02/23/21 08:29 Lisinopril 20 Mg Tablet PO 20 mg DAILY WARD Administration Ondansetron HCl 4 mg 02/22/21 05:08 02/22/21 05:19 Ondansetron Inj 4 Mg/2 Ml Vial IV PUSH 4 mg Q4H PRN Administration Nausea Pantoprazole Sodium 40 mg 02/20/21 21:00 02/23/21 08:29 Pantoprazole Sodium Iv 40 Mg Vial IV PUSH 40 mg Q12HR WARD Administration Quetiapine Fumarate 12.5 mg 02/20/21 17:00 02/23/21 08:29 Quetiapine Fumarate 12.5 Mg Tablet PO 12.5 mg BID WARD Administration Timolol Maleate 1 drop 02/21/21 09:00 02/23/21 08:29 Timolol Maleate 0.5% Op Soln 5 Ml Bottle EACH EYE 1 drop QAM WARD Administration Radiology Results: ITS Impressions Abdomen/Pelvis CT 02/20/21 10:10 IMPRESSION: 1. Constipation 2. Tiny defect in the posterior wall of the duodenal bulb without significant surrounding inflammatory change. Findings favor a diverticulum over ulceration. 3. Chronic pancreatitis wit
--- NOTE | 2021-02-23 17:01 | PM.DS ---
DS: Admitting Diagnosis Discharge Date 02/23/2021 Admitting Diagnosis Pt admitted for abdominal pain DS: Discharge Diagnosis Discharge Diagnosis (1) GI bleed: Code(s): K92.2 - Gastrointestinal hemorrhage, unspecified Status: Resolved Assessment and Plan: Concerning for upper GI bleed with dark, Hemoccult-positive stools. He has been started on IV Protonix 40 mg b.i.d. and will be transfused to a stable hemoglobin. Dr. Nix has been consulted and his input is appreciated. 02/22 interval history patient states abdominal pain is better still has a dark stool no darryl bleeding or hematemesis seen by GI and patient is scheduled for EGD and colonoscopy, EGD showed gastritis unspecified duodenal ulcer, colonoscopy showed diverticulosis without perforation or bleeding, colonic polyps, internal hemorrhoids. 02/23 pt seen by Gi is stable for dischrage GI recommending Protonix b.i.d. and avoid NSAID (2) Hyponatremia: Code(s): E87.1 - Hypo-osmolality and hyponatremia Status: Acute Assessment and Plan: Patient has chronic hyponatremia. Slowly improving. Sodium is 126 on discharge (3) Constipation: Code(s): K59.00 - Constipation, unspecified Status: Acute Assessment and Plan: sp EGD and colonoscopy Monday (4) Dementia: Code(s): F03.90 - Unspecified dementia without behavioral disturbance Status: Acute Assessment and Plan: Continue memantine and quetiapine at bedtime. (5) Hypothyroidism: Code(s): E03.9 - Hypothyroidism, unspecified Status: Acute Assessment and Plan: Continue levothyroxine and check TSH. (6) Hypertension: Code(s): I10 - Essential (primary) hypertension Status: Acute Assessment and Plan: Blood pressures were reviewed and they are stable. DS: Summary Hospital Course Hospital Course: From admission notes: 85-year-old male with history of stroke, hypertension, and hypothyroidism who presented to the emergency department earlier today via EMS from home for evaluation of abdominal pain. The patient had his left knee replaced about a month ago for which he has been taking hydrocodone. Despite taking stool softeners he has been constipated and has not been able to have a bowel movement for approximately 1 week. Over the last couple of days he has had increasing lower abdominal discomfort that he has a hard time describing but he believes it is due to the constipation. He has also had nausea and decreased appetite and a couple of episodes of emesis as well. Hemoglobin and hematocrit were 6.8 and 21.3 respectively in the emergency department with an MCV of 72.8. With further questioning he does mention being placed on iron supplementation after his knee surgery and since that time his stools have been dark. He was not aware of any gross blood in the stool, however he was Hemoccult positive on rectal exam in the emergency department. He has been symptomatic with regards to the anemia with lightheadedness and dizziness over the past couple of weeks. He also reports 2 syncopal episodes at home within the last several days though reports no injuries or head trauma. No significant epigastric discomfort, belching, or bloating. He denies hematemesis While in hospital, pt had EGD which showed gastritis unspecified duodenal ulcer, colonoscopy showed diverticulosis without perforation or bleeding, colonic polyps, internal hemorrhoids, GI recommending Protonix b.i.d. and avoid NSAID. Pt seen by GI and is stable for dischrage. Time Spent with Patient Time attestation: Total time spent providing and/or coordinating discharge services:40 minutes on day of dischrage Exam Narrative: Patient is comfortable HEENT: eyes are clear and none icteric LUNGS:Clear lungs HEART: RR S1S2 ABD: BS+, Soft and nontender Lower extremities: no edema SKIN: nonjaundiced Neuro: grossly intact. DS: Data Data Completed an
[2021-02-24 07:50] LABS: Osmolality, Urine 355 mOsm/kg (50-1200)
== END 2021-02-23 17:30 | disposition home or self-care (01) | DRG 378 ==
LOC: ANHED 10:43 → ANH3MED 12:15
PROVIDERS: Internal Medicine Gastroenterology; Physician Assistant; Admitting Provider Internal Medicine; Emergency Provider Emergency Medicine; PCP Family Medicine Adolescent Medicine; Visit Provider Family Medicine
PROC: 0DJ08ZZ Inspection of Upper Intestinal Tract, Via Natural or Artificial Opening Endoscopic (ICD-10-PCS; CPT 43235; principal; 2021-02-22 14:15)
DX: K26.4 Chronic or unspecified duodenal ulcer with hemorrhage (principal); E87.1 Hypo-osmolality and hyponatremia; D62 Acute posthemorrhagic anemia; K29.71 Gastritis, unspecified, with bleeding; K57.30 Diverticulosis of large intestine without perforation or abscess without bleeding; K63.5 Polyp of colon; K64.8 Other hemorrhoids; K59.00 Constipation, unspecified; F03.90 Unspecified dementia, unspecified severity, without behavioral disturbance, psychotic disturbance, mood disturbance, and anxiety; E03.9 Hypothyroidism, unspecified; I10 Essential (primary) hypertension; E78.5 Hyperlipidemia, unspecified; H40.9 Unspecified glaucoma; Z79.899 Other long term (current) drug therapy; Z87.891 Personal history of nicotine dependence; Z98.49 Cataract extraction status, unspecified eye; Z86.73 Personal history of transient ischemic attack (TIA), and cerebral infarction without residual deficits
CPT/HCPCS: 36415; 36430; 51701; 74177; 80048; 80053; 81001; 82570; 83690; 83735; 83930; 83935; 84300; 84443; 85014; 85018; 85025; 85027; 85610; 85730; 86850; 86900; 86901; 86920; 87081; 87086; 87088; 88305; 88342; 93005; 96361; 96374; 96376; 99285; A9270; C9113; G0378; J2370; J2405; J2704; J7030; J7050; J7120; P9016; Q9967

== ENCOUNTER 2021-07-19 00:43 | Day surgery (SDC) | payer OTHER, SELFPAY ==
[2021-07-06 14:27] VITALS: BMI 23.4
[2021-07-19 09:53] VITALS: BP 139/57; PULSE 86; RESP 18; TEMP 36.1; O2SAT 98
[2021-07-19] MEDS: LACTATED RINGERS 1,000 ML 150 ML IV CONT (10:05)
--- NOTE | 2021-07-19 10:05 | PM.HPGS ---
History of Present Illness History of Present Illness Consent: Risks, benefits, and alternatives have been discussed and questions answered. Patient agrees to proceed with procedure. Chief complaint: gastric ulcer Narrative: Blade Mai is a 85 year old male with GIB due to large duodenal ulcer now on ppi and doing well Review of Systems Constitutional: Constitutional: Denies headache(s) and Denies weakness Eyes: Eyes: Denies blurry vision ENT: Reports Normal hearing present, Denies headache(s) and Denies neck pain Cardiovascular: Cardiovascular: Denies chest pain and Denies dyspnea Respiratory: Respiratory: Denies dyspnea Gastrointestinal: Gastrointestinal: Reports no additional gastrointestinal complaints Genitourinary: Genitourinary: Denies dysuria Musculoskeletal: Musculoskeletal: Denies neck pain Integumentary/Breasts: Skin/Breast: Denies dry skin Neurologic: Reports Normal hearing present, Denies headache(s) and Denies weakness Psychiatric: Psychiatric: Denies anxiety Endocrine: Endocrine: Denies change in body appearance Hematologic/Lymphatic: Hematologic/Lymphatic: Denies easy bleeding Allergic/Immunologic: Allergic/Immunologic: Denies urticaria PMFSH Past Medical History Medical History (Updated 06/14/21 @ 09:26 by Andrew Hart MD) Acute blood loss anemia Anemia Arthritis Carotid artery disease Carotid Doppler in September 2017 showed 50 to 69% stenosis in the right internal carotid artery. Cerebrovascular accident (09/2017) Chronic hyponatremia Dementia Duodenal ulcer Glaucoma Hyperlipidemia Hypertension Hypothyroidism Kidney stones Surgical History Surgical History History of cataract extraction (2013) History of vasectomy Family History Family History Mother Hypertension Cerebrovascular accident Sibling Hypertension Diabetes mellitus Social History Social History Social History: The patient lives in [place] with his . Retired truck technician. Previously smokes cigarettes and to tobacco but quit over 10 years ago. Smoked 1 to 2 cigars a day up until 02/06/2021. No alcohol or illicit substance abuse. Surrogate decision maker: Viktor Mai, franco. Code status: Full code. Smoking status: Current every day smoker Tobacco type: cigarettes Living arrangements: with family Spiritual care concerns: No Meds Home Medications and Allergies Home Medications Medication Instructions Recorded Confirmed Type levothyroxine 112 mcg capsule 112 mcg PO DAILY 12/02/20 07/06/21 History memantine 10 mg tablet 10 mg PO QPM 12/02/20 07/06/21 History quetiapine 25 mg tablet 12.5 mg PO BID 12/02/20 07/06/21 History docusate sodium 100 mg PO DAILY 02/20/21 07/06/21 History latanoprost 1 drp EACH EYE HS 02/20/21 07/06/21 History timolol maleate 1 drp EACH EYE QAM 02/20/21 07/06/21 History quinapril 20 mg tablet 20 mg PO DAILY #90 tablet 06/15/21 07/19/21 Rx Allergies Allergy/AdvReac Type Severity Reaction Status Date / Time No Known Allergies Allergy Verified 07/19/21 09:49 Vital Signs Vital Signs - 24 hr 07/19/21 09:53 Temperature 97 F L Pulse Rate 86 Respiratory Rate 18 Blood Pressure 139/57 L Pulse Oximetry 98 Exam Const: General: comfortable and no acute distress HENMT: General nose exam: Normal nares present Eyes: General: appearance normal, both eyes and all related structures Neck: Neck: no JVD Resp: Auscultation: clear to auscultation bilaterally Cardio: Rate: regular rate Rhythm: regular rhythm GI: Inspection: non-distended GI Palp: Yes Soft to palpation Skin: General skin exam: normal color Neuro: General: gait normal Speech: normal speech Extrem: General: normal to inspection Psych: Mental Status: mental status grossly normal Assessment a
--- NOTE | 2021-07-19 10:08 | WPDANESEPPF ---
Anes - Initial Pre Proc Eval Procedure: Operation Date: 07/19/21 11:00 Proposed Procedures p Esophagogastroduodenoscopy - Amado Nix MD Date/Time: 07/19/21 10:08 Surgeon: Amado Nix MD Pre Op Diagnosis: gastric ulcer Patient Data Age: 85 Gender: M Height: 1.7 m Weight: 68 kg Last Vital Signs Temp 36.1 C L 07/19/21 09:53 Pulse 86 07/19/21 09:53 Resp 18 07/19/21 09:53 BP 139/57 L 07/19/21 09:53 Pulse Ox 98 07/19/21 09:53 Allergies Allergy/AdvReac Type Severity Reaction Status Date / Time No Known Allergies Allergy Verified 07/19/21 09:49 Home Medications Medication Instructions Recorded Confirmed Type levothyroxine 112 mcg capsule 112 mcg PO DAILY 12/02/20 07/06/21 History memantine 10 mg tablet 10 mg PO QPM 12/02/20 07/06/21 History quetiapine 25 mg tablet 12.5 mg PO BID 12/02/20 07/06/21 History docusate sodium 100 mg PO DAILY 02/20/21 07/06/21 History latanoprost 1 drp EACH EYE HS 02/20/21 07/06/21 History timolol maleate 1 drp EACH EYE QAM 02/20/21 07/06/21 History quinapril 20 mg tablet 20 mg PO DAILY #90 tablet 06/15/21 07/19/21 Rx Patient hx anesthesia problems: none Family hx anesthesia problems: none Results Review: All pre-operative results and documents have been reviewed as part of the pre-operative evaluation. [facility] Past Medical History Medical History Acute blood loss anemia Anemia Arthritis Carotid artery disease Carotid Doppler in September 2017 showed 50 to 69% stenosis in the right internal carotid artery. Cerebrovascular accident (09/2017) Chronic hyponatremia Dementia Duodenal ulcer Glaucoma Hyperlipidemia Hypertension Hypothyroidism Kidney stones Surgical History Surgical History History of cataract extraction (2013) History of vasectomy Family History Family History Mother Hypertension Cerebrovascular accident Sibling Hypertension Diabetes mellitus Social History Social History Social History: The patient lives in [place] with his . Retired regional refrigerated cdl truck driver. Previously smokes cigarettes and to tobacco but quit over 10 years ago. Smoked 1 to 2 cigars a day up until 02/06/2021. No alcohol or illicit substance abuse. Surrogate decision maker: Viktor Mai, son. Code status: Full code. Smoking status: Current every day smoker Tobacco type: cigarettes Living arrangements: with family Spiritual care concerns: No Anes - Eval Final PreProcedure Day of Procedure 07/19/21 10:08 Patient weight: normal Heart: regular rate and rhythm Lungs: clear to auscultation Airway: Mallampati scale class II Neurological: alert and oriented Last oral intake: >/= 8 hours ASA classification: III Emergent: no Anesthetic plan: proceed Anesthesia type and monitoring: general GIVS and standard monitoring Results Review: All pre-operative results and documents have been reviewed as part of the pre-operative evaluation. Informed Consent: The patient's anesthetic plan and its attendant risks and benefits were discussed with the patient/family/POA. Questions were solicited and answers provided to the satisfaction of the patient/family/POA.
[2021-07-19 10:17] VITALS: BP 117/63; PULSE 81; RESP 14; O2SAT 95
[2021-07-19 10:27] VITALS: BP 127/55; PULSE 79; RESP 19; O2SAT 100
[2021-07-19 10:37] VITALS: BP 129/55; PULSE 82; RESP 13; O2SAT 100
== END 2021-07-19 11:04 | disposition home or self-care (01) ==
PROVIDERS: PCP Family Medicine Adolescent Medicine; Visit Provider Internal Medicine Gastroenterology
PROC: 0DJ08ZZ Inspection of Upper Intestinal Tract, Via Natural or Artificial Opening Endoscopic (ICD-10-PCS; CPT 43235; principal; 2021-07-19 11:00)
DX: Z09 Encounter for follow-up examination after completed treatment for conditions other than malignant neoplasm (principal); Z87.11 Personal history of peptic ulcer disease; K44.9 Diaphragmatic hernia without obstruction or gangrene; E03.9 Hypothyroidism, unspecified; D64.9 Anemia, unspecified; I25.10 Atherosclerotic heart disease of native coronary artery without angina pectoris; Z86.73 Personal history of transient ischemic attack (TIA), and cerebral infarction without residual deficits; E78.5 Hyperlipidemia, unspecified; I10 Essential (primary) hypertension; E87.1 Hypo-osmolality and hyponatremia; F17.210 Nicotine dependence, cigarettes, uncomplicated
CPT/HCPCS: 43235; J2001; J2704; J7120

== ENCOUNTER 2024-06-29 17:01 | Inpatient (IN) | payer OTHER, SELFPAY ==
[2024-06-29] VITALS (9 sets, daily range): BP systolic 103–166; BP diastolic 56–88; PULSE 68–86; RESP 13–20; TEMP 35.9–36.3; O2SAT 97–100; BMI 20.8
--- NOTE | ~2024-06-29 | CT_ITS ---
History: Syncope PROCEDURE: CT cervical spine without intravenous contrast. COMPARISON: None TECHNIQUE: Multiple contiguous axial images of the cervical spine were performed without the administration of i ntravenous contrast. DLP: 200 mGy-cm FINDINGS: Preservation of the normal curvature of the cervical spine is identified. No acute fractures are present. Significant degenerative disease is noted, with osteophyte formation, disc space narrowing, and facet arthropathy. The bilateral lung apices are unremarkable. No soft tissue abnormality is present. The airway is patent. Impression: Moderate degenerative disease, without acute fracture. Reviewed, dictated and finalized at location A. M48 M60 ARMOR CREWMAN Impression: Moderate degenerative disease, without acute fracture.
--- NOTE | ~2024-06-29 | CT_ITS ---
History: Fall PROCEDURE: CT thoracic and lumbar spine without intravenous contrast. COMPARISON: Reference is made to CT examination of the abdomen and pelvis dated 02/20/2021 TECHNIQUE: Multiple contiguous axial images of the thoracic and lumbar spine were performed without the administ ration of intravenous contrast. DLP: 1307 mGy-cm FINDINGS: Preservation of the normal curvature of both the thoracic and lumbar spines are identified. Diffuse bony demineralization is noted. Compression of the superior endplate of the L1 vertebral body is identified, with additional nondispl aced lateral wedge fracture of the anterior lateral vertebral body of L1, to the left of midline. No additional compression fractures are present. No soft tissue abnormality is noted. Impression: Findings within the superior endplate of L1 for which an acute compression fracture is suspected, as detailed above. Reviewed, dictated and finalized at location A. UNT INFORMATION CLERK Impression: Findings within the superior endplate of L1 for which an acute compression frac ture is suspected, as detailed above.
--- NOTE | ~2024-06-29 | US_ITS ---
Procedure: Duplex Doppler examination of the bilateral carotids. Indication: Syncope Technique: Real time, color-flow and pulse wave Doppler examination of the bilateral carotids was performed. Findings: Phillips scale ultrasonography of the right neck demonstrated moderate calcified plaque at the right bullock tid bulb. There was demonstration of normal color-flow and Doppler waveforms within the right common, internal and external carotid arteries. The peak systolic velocities in the right common, internal a nd external carotid arteries were demonstrated to be 87 cm/sec, 164 cm/sec and 85 cm/sec respectively . The right ICA/CCA ratio was 2.2.The proximal right internal carotid artery demonstrates 0% stenosis relative to the normal distal artery lumen diameter. Phillips scale sonography of the left neck demonstrated moderate to extensive calcified plaque at the lef t carotid bulb.. There was demonstration of normal color-flow and wave forms within the left common, internal and external carotid arteries. The peak systolic velocities in the left common, internal and external carotid arteries were demonstrated to be 74cm/sec, 297 cm/sec and 83 cm/sec respectively. T he left ICA/CCA ratio was 5.2. The proximal left internal carotid artery demonstrates 0% stenosis rel ative to the normal distal artery lumen diameter. There was antegrade flow demonstrated in the bilateral vertebral arteries. Impression: High-grade stenosis of the left internal carotid artery with extensive calcified plaque at the right carotid bulb (70-95 % in degree). Moderate stenosis at the proximal to mid right internal carotid artery (50-69% in degree). Antegrade flow in the bilateral vertebral arteries. Note: The methodology used is an indirect measurement validated against a direct method (such as the NASCET criteria) that compares diameters at the stenosis to the distal ICA. Reviewed, dictated and finalized at [facility]. RVISOR SPINNING Impression: High-grade stenosis of the left internal carotid artery with extensive calcifie d plaque at the right carotid bulb (70-95 % in degree). Moderate stenosis at the proximal to mid right internal carotid artery (50-69% in degree). Antegrade flow in the bilateral vertebral arteries. Note: The methodology used is an indirect measurement validated against a direct meth od (such as the NASCET criteria) that compares diameters at the stenosis to the distal ICA.
--- NOTE | ~2024-06-29 | CT_ITS ---
History: Fall PROCEDURE: CT head without contrast. COMPARISON: 09/20/2017 TECHNIQUE: Axial imaging of the head performed from the skull base to the vertex without IV contrast. Sagittal a nd coronal reformations obtained. DLP: 605 mGy-cm FINDINGS: The ventricles are enlarged. The dilatation of the ventricles is proportional to the degree of sulcal prominence, not uncommon in the senescent brain. Decreased attenuation is identified within the periventricular white matter, likely secondary to micr ovascular ischemic disease, in a patient of this age. There is no mass, mass effect or midline shift. There is no abnormal extra-axial fluid collection or intracranial hemorrhage. Visualized paranasal sinuses are clear. The mastoid air cells are well aerated. No acute displaced fractures within the overlying cranium. Impression: No acute intracranial hemorrhage or suspicious mass effect. Reviewed, dictated and finalized at location A. RONMENTAL HEALTH PHYSICIAN Impression: No acute intracranial hemorrhage or suspicious mass effect.
--- NOTE | ~2024-06-29 | XR_ITS ---
CHEST RADIOGRAPH CLINICAL HISTORY: SYNCOPE . COMPARISON: 09/06/2017 TECHNIQUE: Single portable view of the chest. FINDINGS The cardiomediastinal silhouette is unremarkable. The lungs are clear. Visualized osseous structures and soft tissues are unremarkable. IMPRESSION: No focal infiltrate or effusion. Reviewed, dictated and finalized at location A. STS' BOOKING REPRESENTATIVE
--- NOTE | ~2024-06-29 | MR_ITS ---
MRI of the brain Clinical History: Seizure-like activity Technique: Axial and sagittal T1-weighted images were acquired. These were followed by axial T2-weigh meera, diffusion weighted, gradient, and FLAIR images. Following intravenous administration of 12 cc Mu ltiHance gadolinium, T1-weighted fat-sat imaging was performed in the axial and coronal planes. COMPARISON: 09/16/2017 Findings: There is no acute infarct, intracranial hemorrhage or mass lesion. There are extensive school operations manager roshni white matter signal changes in the periventricular white matter bilaterally, most compatible with chronic microvascular ischemic change. Ventricles and subarachnoid spaces are mildly dilated. Orbits are unremarkable. Paranasal sinuses and mastoid air cells are clear. Major intracranial flow voids are intact. Sagittal midline structures are intact. No abnormal postcontrast enhancement identified. IMPRESSION: No acute intracranial hemorrhage, acute infarct, or mass lesion. Moderate to advanced chronic microvascular ischemic changes, and mild generalized atrophy. Reviewed, dictated and finalized at [facility]. L COORDINATOR IMPRESSION: No acute intracranial hemorrhage, acute infarct, or mass lesion. Moderate to advanced chronic microvascular ischemic changes, and mild generaliz ed atrophy.
--- OUTSIDE RECORDS SUMMARY | 2024-06-29 17:03 | XMS_ITS | Continuity of Care Document ---
[facility] Address [address] [facility], [place] [address] [facility] [address] [place] [address] Phone Care Team Providers Care Farm Reporter Name Role Phone Rose Reyna Unavailable Unavailable Procedures Procedure Date Office/outpatient Visit, Est Optic Nerve Head Eval IPO Reduced 15% Office/outpatient Visit, Est Optic Nerve Head Eval IPO Reduced 15% Fundus Photography W/ Report Visual Field Examination-Professional Fe Visual Field Examination(s) Eye Exam & Treatment Optic Nerve Head Eval IPO Reduced 15% No Script Office/outpatient Visit, Est Optic Nerve Head Eval IPO Reduced 15% No Script Eye Exam Established Pt Optic Nerve Head Eval IPO Reduced 15% No Script Visual Field Examination-Professional Visual Field Examination(s) Office/outpatient Visit, Est Optic Nerve Head Eval Office/outpatient Visit, Est Optic Nerve Head Eval Fundus Photography W/ Report Office/outpatient Visit, Est Optic Nerve Head Eval Visual Field Examination(s) Office/outpatient Visit, Est Optic Nerve Head Eval Visual Functional Status Assessed Office/outpatient Visit, Est Fundus Photography W/ Report Advance Directives Directive Yes / No Effective Date File Name No Information Encounters Encounter Description Practice Location Reason(s) For Visit Diagnoses Date Provider Providers Copied on Encounter [place] [facility] [place] [address], [place], [place], [id number], [place] tel:[phone] [facility] No Information 6201 0 Reyna Rose. [address], [place], [address], [place]. tel:[phone] [place] [facility] [place] [address], [place], [place], [address], [place] tel:[phone] [facility] No Information 9201 0 Monet Sanchezl. [address] [facility] [address], [address], [place]. tel:[phone] Referring Provider: Bryant stoddard, [facility] [address], [place], [place], [facility]. tel:[phone] formerly [facility], [address], [place], [place], [address], [place] tel:[phone] [facility] No Information 8201 0 Monet Bryant. [address] [facility] [address], [place], [address], [place]. tel:[phone] Referring Provider: Bryant stoddard, [address] [facility], [place], [facility]. tel:[phone] formerly [facility], [address], [place], [place], [address], [place] tel:[phone] [facility] No Information Feb-0 1-201 0 Krishnasamy Bryant. [address] [facility] [address], [place], [address], [place]. tel:[phone] Referring Provider: Bryant stoddard, [facility] [address], [place], [place], [facility]. tel:[phone] [facility], [address] [place] [address] [address], [place], [place], [address], [place] tel:[phone] [facility] No Information Oct-0 7-200 9 Krishnasamy Bryant. [address] [facility] [address], [place], [facility], [place]. tel:[phone] Office/outpat ient Visit, Est [facility], [address] [place] [address] [address], [place], [place], [address], [place] tel:[phone] [facility] No Information Ha-0 3-200 9 Krishnasamy Bryant. [address] [place], [place] [address]ate [facility] [address], [place], [facility], [place]. tel:[phone] formerly [facility], [address] [place] [address] [address], [place], [place], [address], [place] tel:[phone] [facility] No Information October-1 3-200 9 Krishnasamy Bryant. [address] [place], [place] [address] [address], [place], [facility], [place]. tel:[phone] formerly [facility], [address] [place] [address] [address], [place], [place], [address], [place] tel:[phone] [facility] No Information 1 4-200 9 Krishnasamy Bryant. [facility] [address], [place], [facility], [place]. tel:[phone] Referring Provider: Bryant stoddard, [address] [place], [place] [address]ate [facility] [address], [place], [facility]. tel:[phone] [facility], [address], [place], [place], [address], [place] tel:[phone] [facility] No Information 2-200 9 Krishnasamy Bryant. [address] [facility] [address], [place], [address], [place]. tel:[phone] Referring Provider: Bryant stoddard, [address] [facility] [address], [place], [address]. tel:[phone] Office/outpat ient Visit, [facility], [address], [place], [place], [address], [place] tel:[phone] [facility] No Information 9-200 8 Krishnasamy Bryant. [address] [facility] [address], [place], [address], [place]. tel:[phone] Office/outpat ient Visit, [facility], [address], [place], [place], [address], [place] tel:[phone] [facility] No Information 0-200 8 Krishnasamy Bryant. [address] [facility] [address], [address], [place]. tel:[phone] Referring Provider: Bryant stoddard, [address] [facility] [address], [place], [address]. tel:[phone] Office/outpat ient Visit, [facility], [address], [place], [place], [address], [place] tel:[phone] [facility] No Information Aug- 0-200 8 Krishnasamy Bryant. [address] [facility] [address], [place], [address], [place]. tel:[phone] [facility], [address], [place], [place], [address], tel:[phone] [facility] No Information Nov-0 5-200 7 Zeny Rosen. [address] [place], [place], [address], . tel:[phone] Referring Provider: Silas Chang, [address] [place], [address] . tel:[phone] Office/[place]pat [place] [facility] [place] [address] [facility] [address], [place], [place], [address], tel:[phone] [facility] No Information Marcin-0 9-200 7 Zeny Rosen. [address] [place], [place], [address], . tel:[phone] Office/outpat ient [place], [facility] [place] [address] [place] [address] [address], [place], [place], [address], tel:[phone] [facility] No Information Mar-2 6-200 7 Zeny Rosen. [address] [place], [place], [address], . tel:[phone] Referring Provider: Silas Chang, [address] [place], [address] . tel:[phone] Family History Family Member Type Diagnosis Age At Onset No Information Payers Payer name Insurance type Covered alliance party ID Authoriza tidariel(s) [place] [id number] [facility] [id number] Social History Type Description Quantity Date Captured Comments Sex Male Smoking Status No Information Chief Complaint And Reason For Visit No Information Reason For Referral Reason For Referral No Information History Of Present Illness Encounter Date Complaint History Of Prese nt Illness No Information Functional Status Date Functional Assessmen t No Information Instructions Date Instruction Additional Infor mation No Information Assessments Type Assessment Date No Information Patient Care Teams Name Effective Dates (start - stop) Status Members No Information
--- OUTSIDE RECORDS SUMMARY | 2024-06-29 17:03 | XMS_ITS | Clinical Summary ---
Author Organization [facility] [address] Address [address] [place] [address] Care Team Providers Care Yard Truck Driver Name Role Phone Andrew Hart MD Primary Care Prov ider Deni Kim PA Unavailable [phone] Allergies No known active allergies Medications levothyroxine (SYNTHROID) 112 mcg tablet 1 Active memantine (NAMENDA) 10 mg tablet 1 Active quinapriL (ACCUPRIL) 40 mg tablet 1 Active senna-docusate (PERICOLACE) 8.6-50 mg 1-2 times daily as needed for constipation 60 tablet 1 1 Active HYDROcodone-jason taminophen (NORCO) 5-325 mg per tabletIndicatio ns:Pain Take 1-2 tablets every 4-6 hours as needed for pain 63 tablet 1 Active Additional Information Patient not taking.Reported on 08/08/[address] (PROTONIX) 40 mg EC tablet Take 40 mg by mouth 2 (two) times a day 1 Active latanoprost (XALATAN) 0.005 % ophthalmic solution 1 drop nightly 3 Active lisinopriL (PRINIVIL,ZESTR [place]) 20 mg tablet Take 20 mg by mouth daily 2 Active mirtazapine (REMERON) 15 mg tablet Take 15 mg by mouth nightly at bedtime 3 Active sulfamethoxazol e-trimethoprim (BACTRIM DS) 800-160 mg per tablet Take 1 tablet by mouth 2 (two) times a day 2 Active tamsulosin (FLOMAX) 0.4 mg extended release capsule Take 0.4 mg by mouth 2 (two) times a day 2 Active timolol (TIMOPTIC) 0.5 % ophthalmic solution INSTILL 1 DROP INTO BOTH EYES IN THE MORNING DIRECTED 3 Active Active Problems Problem Noted Date Diagnosed Date History of total knee arthroplasty, left 021 Primary osteoarthritis of left knee 01/01/2021 Overview (01/01/2021): Added automatically from request for surgery [id number] Immunizations Name Administration Dates Next Due Pfizer SARS-CoV-2 Monovalent Vaccination (12+ Yrs) PURPLE 09/30/2020,09/09/2020 Medical History Medical History Date Comments Hypertension Hypercholesteremia Hypothyroidism Family History Medical History Relation Name Comments Hypertension Other Stroke Other Relation Name Status Comments Other Social History Tobacco Use Types Packs/Day Years Used Date Smoking Tobacco: Every Day Cigarettes Cigars Smokeless Tobacco: Former Quit: 2008 AUDIT-C Answer Date Recorded Q1: How often do you have a drink containing alc ohol? Never 01/14/2021 Average Number of Drinks Not on file Q3: How often do you have si x or more drinks on one occasion? Never 01/14/2021 Sex and Gender Information Value Date Recorded Sex Assigned at Not on file Legal Sex Male 2:31 AM BET TAKER Gender Identity Not on file Sexual Orientation Not on file Obstetrics History Last Filed Vital Signs Vital Sign Reading Time Taken Comments Blood Pressure 125/62 08/08/2022 10:21 AM BET TAKER Pulse 73 08/08/2022 10:21 AM BET TAKER Temperature 36.4 ??C (97.6 ??F) 01/19/2021 2:30 PM CD T Respiratory Rate 20 01/19/2021 2:30 PM CDT Oxygen Saturation 99% 01/19/2021 2:30 PM CDT Inhaled Oxygen Concentration - - Weight 64.9 kg (143 lb) 08/08/2022 10:21 AM BET TAKER Height 170.2 cm (5' 7 ) 08/08/2022 10:21 AM BET TAKER Body Mass Index 22.4 08/08/2022 10:21 AM BET TAKER Plan of Treatment Health Maintenance Due Date Last Done Comments Depression Screening 1935 Fall Risk Assessment 1935 Pneumococcal vaccine 65+ (1 of 2 - PCV) 1941 DTaP/Tdap/Td Vaccine (1 - Tdap) 1946 Hepatitis B Screening 1953 Zoster Vaccine (1 of 2) 1985 Well Visit 65+ 2000 Covid-19 Vaccine (3 - season) 2024, 09/09/2020 Influenza Vaccine (#1) 2024 Medical Devices Implanted Type Area Dental Assistant Teacher Device Identifier Shelf Expiration Date Model / Serial / Lot [employer] 6195-1-001 Cement Bone Simplex Gentamicin High Viscosity 40gm - Sn/A - [id number] Implanted:Qty: 1 on 01/19/2021 by Andreas Hanks MD at [facility] Left: Knee [employer] [id number] 10/02/2021 6195-1-001 / N/A / [id number] [employer] 6195-1-001 Cement Bone Simplex Gentamicin High Viscosity 40gm - [id number] Implanted:Qty: 1 on 01/19/2021 by Andreas Hanks MD at [facility] Left: Knee [employer] [id number] 10/02/2021 6195-1-001 / / [id number] [employer] [id number] Attune Cruciate Retain Cementless Knee Left 6 Component Femoral - [id number] Implanted:Qty: 1 on 01/19/2021 by Andreas Hanks MD at [facility] Left: Knee [employer] 09/02/2030 [id number] / / [id number] [employer] [id number] Attune 10mm Cruciate Retaining Fix Bearing Knee 6 Insert Tibial - [id number] Implanted:Qty: 1 on 01/19/2021 by Andreas Hanks MD at [facility] Left: Knee [employer] 02/02/2023 [id number] / / [id number] [employer] [id number] Attune S+ Cement Fix Bearing Knee 7 Baseplate Tibial - [id number] Implanted:Qty: 1 on 01/19/2021 by Andreas Hanks MD at [facility] Left: Knee [employer] 11/02/2030 [id number] / / [id number] Insurance [facility] Care Teams Yard Truck Driver Relationship Specialty Start Date End Date Andrew Hart MD [address] [place] [address] PCP - General Family Medicine 11/19/20 Robina Cheema PA [address] [place] [address] Physician Filler Sifter Machine Orthopedic Surgery 01/19/21
--- OUTSIDE RECORDS SUMMARY | 2024-06-29 17:03 | XMS_ITS | Referral Summary ---
Author Organization [facility] [address] Address [address] [place] [address] Care Team Providers Care Internal Controls Consultant Name Role Phone Andrew Hart MD Primary Care Prov ider Deni Kim PA Unavailable [phone] Allergies No known active allergies Medications levothyroxine [...] (01/01/2021): Added automatically from request for surgery [id number] Immunizations Name Administration Dates Next Due Pfizer SARS-CoV-2 Monovalent Vaccination (12+ Yrs) PURPLE 09/30/2020,09/09/2020 Social History Tobacco Use Types Packs/Day Years Used Date Smoking Tobacco: Every Day Cigarettes Cigars Smokeless Tobacco: Former Quit: 2008 AUDIT-C Answer Date Recorded Q1: How often do you have a drink containing alc ohol? Never 01/14/2021 Average Number of Drinks Not on file 021 Q3: How often do you have si x or more drinks on one occasion? Never 01/14/2021 Sex and Gender Information Value Date Recorded Sex Assigned at Not on file Legal Sex Male 2:31 AM INFORMATION CLERK Gender Identity Not on file Sexual Orientation Not on file Last Filed Vital Signs Vital Sign Reading Time Taken Comments Blood Pressure 125/62 08/08/2022 10:21 AM INFORMATION CLERK Pulse 73 08/08/2022 10:21 AM INFORMATION CLERK Temperature 36.4 ??C (97.6 ??F) 01/19/2021 2:30 PM CD T Respiratory Rate 20 01/19/2021 2:30 PM CDT Oxygen Saturation 99% 01/19/2021 2:30 PM CDT Inhaled Oxygen Concentration - - Weight 64.9 kg (143 lb) 08/08/2022 10:21 AM INFORMATION CLERK Height 170.2 cm (5' 7 ) 08/08/2022 10:21 AM INFORMATION CLERK Body Mass Index 22.4 08/08/2022 10:21 AM INFORMATION CLERK Plan of Treatment Not on file Medical Devices Implanted Type Area Outbound Sales Representative Device Identifier Shelf Expiration Date Model / Serial / Lot [employer] 6195-1-001 Cement Bone Simplex Gentamicin High Viscosity 40gm - Sn/A - [id number] Implanted:Qty: 1 on 01/19/2021 by Andreas Hanks MD at [facility] Left: Knee [employer] C1713 10/02/2021 6195-1-001 / N/A / [id number] [employer] 6195--001 Cement Bone Simplex Gentamicin High Viscosity 40gm - [id number] Implanted:Qty: 1 on 01/19/2021 by Andreas Hanks MD at [facility] Left: Knee [employer] C1713 10/02/2021 6195--[id number] / / [id number] [employer] [id number] Attune Cruciate Retain Cementless Knee Left 6 Component Femoral - [id number] Implanted:Qty: 1 on 01/19/2021 by Andreas Hanks MD at [facility] Left: Knee [employer] 09/02/2030 [id number] / / [id number] [employer] [id number] Attune 10mm Cruciate Retaining Fix Bearing Knee 6 Insert Tibial - [id number] Implanted:Qty: 1 on 01/19/2021 by Andreas Hanks MD at [facility] Left: Knee [employer] 02/02/2023 [id number] / / [id number] [employer] [id number] Attune S+ Cement Fix Bearing Knee 7 Baseplate Tibial - [id number] Implanted:Qty: 1 on 01/19/2021 by Andreas Hanks MD at [facility] Left: Knee [employer] 11/02/2030 [id number] / / [id number] Insurance [facility] Care Teams Internal Controls Consultant Relationship Specialty Start Date End Date Andrew Hart MD [address] [place] [address] PCP - General Family Medicine 11/19/20 Robina Cheema PA [address] [place] [address] Physician Child Development Assistant Orthopedic Surgery 01/19/21
--- NOTE | 2024-06-29 17:18 | ED_ITS ---
HPI - General Adult General Chief complaint: Syncope <Kerry Monaco MD - Last Filed: 06/29/24 21:03> Stated complaint: syncopal episode <Kerry Monaco MD - Last Filed: 06/29/24 21:03> Time Seen by Provider: 06/29/24 17:13 <Kerry Monaco MD - Last Filed: 06/29/24 21:03> Source: patient, family and EMS <Kerry Monaco MD - Last Filed: 06/29/24 21:03> Mode of arrival: EMS <Kerry Monaco MD - Last Filed: 06/29/24 21:03> Limitations: no limitations <Kerry Monaco MD - Last Filed: 06/29/24 21:03> History of Present Illness HPI narrative: 88 YEARS OLD WHITE MALE CAME TO THE ED BY AMBULANCE FROM HOME WITH HIS SON WHO IS TELLING ME THAT PATIENT WAS SITTING ON A CHAIR MAPPING SUDDENLY WOKE UP AND STARTED TALKING CRAZY NONE SINCE, EYES ROLLED BACKWARD, STOPPED BREATHING, COLD CLAMMY SKIN, TRIED TO JUMP OF THE CHAIR THEN BECOME UNRESPONSIVE FOR ABOUT 3-4 MINUTES AMBULANCE ARRIVED AND THEN PATIENT START GETTING BETTER. PATIENT HAD SIMILAR MULTIPLE SIMILAR EPISODES IN THE PAST WITHOUT SPECIFIC DIAGNOSIS WAS TOLD PROBABLY HYPOGLYCEMIA. PATIENT IS NOT HYPOGLYCEMIC TODAY. THE SINUS TELLING ME THAT 4 DAYS AGO PATIENT WAS STANDING HOLDING ON HIS CANE THEN FELT BACKWARD POSSIBLE HEAD THE BACK OF HIS HEAD ON THE GROUND, COMPLAINING OF BACK PAIN. HE DENIES LOSS OF CONSCIOUSNESS AT THAT TIME. CURRENTLY PATIENT IS ASYMPTOMATIC EXCEPT BACK PAIN HE DENIES ANY FEVER, CHILLS, NAUSEA, VOMITING, HEADACHE OR FOCAL NEURO DEFICIT. HISTORY OF HYPERTENSION, HYPERLIPIDEMIA, NOT ON ANTI-PLATELET OR ANTICOAGULANT MEDICATION. <Kerry Monaco MD - Last Filed: 06/29/24 21:03> Related Data Home medications: Home Medications ?Medication ?Instructions ?Recorded ?Confirmed ?Last Taken ?Type latanoprost 0.005 % eye drops 1 drp EACH EYE HS 02/20/21 04/02/24 02/19/21 History timolol maleate 0.5 % eye drops 1 drp EACH EYE QAM 02/20/21 04/02/24 02/19/21 History finasteride 5 mg tablet 5 mg PO DAILY 12/28/22 04/02/24 Unknown History <Kerry Monaco MD - Last Filed: 06/29/24 21:03> Allergies/adverse reactions: Allergies Allergy/AdvReac Type Severity Reaction Status Date / Time No Known Allergies Allergy Verified 04/02/24 08:17 <Kerry Monaco MD - Last Filed: 06/29/24 21:03> Review of Systems 2 Review of Systems: All systems reviewed & are unremarkable except as noted in HPI and below <Kerry Monaco MD - Last Filed: 06/29/24 21:03> REPLACED BY [facility] Past Medical History Medical History: Medical History Bilateral hand pain Generalized osteoarthritis of multiple sites (~2017) Duodenal ulcer (02/2021) Acute blood loss anemia (02/2021) Hypothyroidism Dementia Glaucoma Chronic hyponatremia Kidney stones Hyperlipidemia Carotid artery disease Carotid Doppler in September 2017 showed 50 to 69% stenosis in the right internal carotid artery. 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 Retired concrete truck driver. Previously smokes cigarettes and to tobacco but quit over 10 years ago. Smoked 1 to 2 cigars a day up until 02/06/2021. No alcohol or illicit substance abuse. Surrogate decision maker: Viktor Mai, son. Code status: Full code. Smoking status: Current every day smoker (2-3 cigarettes per day) Tobacco type: cigarettes Living arrangements: with family Spiritual care concerns: No <Kerry Monaco MD - Last Filed: 06/29/24 21:03> Exam 2 Narrative: GENERAL APPEARANCE: WELL-DEVELOPED, WELL-NOURISHED SKIN: NORMAL COLOR HEAD: NORMOCEPHALIC, NONTRAUMATIC EYES: CLEAR CONJUNCTIVA ENT: OROPHARYNX NORMAL, EARS NORMAL, NOSE NORMAL NECK: SUPPLE, NONTENDER CHEST AND RESPIRATORY: AIRWAY PATENT, NO RESPIRATORY DISTRESS, NO ACCESSORY MUSCLE USE HEART: REGULAR RATE/RHYTHM ABDOMEN: SOFT, NONTENDER, NO ORGANOMEGALY, QUIET BOWEL SOUNDS VASCULAR: NORMAL PERIPHERAL PULSES, NORMAL CAPILLARY REFILL. MUSCULOSKELETAL: NORMAL RANGE OF MOTION, NONTENDER BACK NEUROLOGIC: ALERT AND ORIENTED ?3, ANODE MACHINE OPERATOR IS NORMAL TESTED, NO GROSS MOTOR DEFICIT <Kerry Monaco MD - Last Filed: 06/29/24 21:03> Course Course Emergency Course: Patient signed out to me pending CT scans prior to admission to the hospitalist team. Hospitalist team is aware. CT shows acute to subacute compression fracture of L1 endplate and i made the hospitalist team aware, no acute intracranial process. No other appreciable injuries. Patient is admitted to [facility] at this time. <Dylon Webb MD - Last Filed: 06/29/24 23:07> Consultations Consultation #1: DR KARIMI <Kerry Monaco MD - Last Filed: 06/29/24 21:03> Date: 06/29/24 <Kerry Monaco MD - Last Filed: 06/29/24 21:03> Time: 19:40 <Kerry Monaco MD - Last Filed: 06/29/24 21:03> Vital Signs Vital signs: Vital Signs Temperature 35.9 C L 06/29/24 17:29 Pulse Rate 69 06/29/24 17:29 Respiratory Rate 17 06/29/24 17:29 Blood Pressure 151/82 H 06/29/24 17:29 Pulse Oximetry 99 06/29/24 17:29 Oxygen Delivery Room Air 06/29/24 17:29 Temperature 36.0 C L 06/29/24 22:22 Pulse Rate 71 06/29/24 22:22 Respiratory Rate 17 06/29/24 22:22 Blood Pressure 136/60 06/29/24 22:22 Pulse Oximetry 100 06/29/24 22:22 Oxygen Delivery Room Air 06/29/24 17:29 <Kerry Monaco MD - Last Filed: 06/29/24 21:03> Vital Signs Temperature 35.9 C L 06/29/24 17:29 Pulse Rate 69 06/29/24 17:29 Respiratory Rate 17 06/29/24 17:29 Blood Pressure 151/82 H 06/29/24 17:29 Pulse Oximetry 99 06/29/24 17:29 Oxygen Delivery Room Air 06/29/24 17:29 Temperature 36.0 C L 06/29/24 22:22 Pulse Rate 71 06/29/24 22:22 Respiratory Rate 17 06/29/24 22:22 Blood Pressure 136/60 06/29/24 22:22 Pulse Oximetry 100 06/29/24 22:22 Oxygen Delivery Room Air 06/29/24 17:29 <Dylon Webb MD - Last Filed: 06/29/24 23:07> Medical Decision Making MDM Narrative Medical decision making narrative: PATIENT CAME TO THE ED WITH SEIZURE-LIKE ACTIVITY/SYNCOPE VITAL SIGNS SHOWING BLOOD PRESSURE 151/82 OTHERWISE WITHIN NORMAL LIMIT PHYSICAL EXAMINATION IS INSIGNIFICANT DIFFERENTIAL DIAGNOSIS INCLUDE SEIZURE LIKE ACTIVITIES, INTRACRANIAL PATHOLOGY, DIFFERENTIAL DIAGNOSIS INCLUDE SEIZURE-LIKE ACTIVITY, CARDIAC ARRHYTHMIA, SLEEP DISORDER BLOOD WORKUP TODAY INCLUDES CBC, CMP, TROPONIN SHOWED SODIUM 123, HISTORY OF CHRONIC HYPONATREMIA, CREATININE 1.4, HISTORY OF RENAL INSUFFICIENCY, GLUCOSE 165 CHEST X-RAY SHOWED NO ACUTE ABNORMALITIES CT HEAD, CERVICAL SPINE THORACIC SPINE AND LUMBAR SPINE SHOWED ADMIT TO HOSPITALIST DIAGNOSIS SEIZURE-LIKE ACTIVITY, SYNCOPE <Kerry Monaco MD - Last Filed: 06/29/24 21:03> Differential Diagnosis Differential Diagnosis: ABOVE <Kerry Monaco MD - Last Filed: 06/29/24 21:03> Vital Signs Vital Signs: Vital Signs Temperature 35.9 C L 06/29/24 17:29 Pulse Rate 69 06/29/24 17:29 Respiratory Rate 17 06/29/24 17:29 Blood Pressure 151/82 H 06/29/24 17:29 Pulse Oximetry 99 06/29/24 17:29 Oxygen Delivery Room Air 06/29/24 17:29 Temperature 36.0 C L 06/29/24 22:22 Pulse Rate 71 06/29/24 22:22 Respiratory Rate 17 06/29/24 22:22 Blood Pressure 136/60 06/29/24 22:22 Pulse Oximetry 100 06/29/24 22:22 Oxygen Delivery Room Air 06/29/24 17:29 <Kerry Monaco MD - Last Filed: 06/29/24 21:03> Vital Signs Temperature 35.9 C L 06/29/24 17:29 Pulse Rate 69 06/29/24 17:29 Respiratory Rate 17 06/29/24 17:29 Blood Pressure 151/82 H 06/29/24 17:29 Pulse Oximetry 99 06/29/24 17:29 Oxygen Delivery Room Air 06/29/24 17:29 Temperature 36.0 C L 06/29/24 22:22 Pulse Rate 71 06/29/24 22:22 Respiratory Rate 17 06/29/24 22:22 Blood Pressure 136/60 06/29/24 22:22 Pulse Oximetry 100 06/29/24 22:22 Oxygen Delivery Room Air 06/29/24 17:29 <Dylon Webb MD - Last Filed: 06/29/24 23:07> Lab Data Result diagrams: 06/29/24 17:53 06/29/24 17:53 <Kerry Monaco MD - Last Filed: 06/29/24 21:03> Labs: Lab Results 06/29/24 06/29/24 Range/Units 17:53 17:55 WBC 9.1 (4.5-10.0) K/mm3 RBC 4.77 (4.6-6.20) M/mm3 Hgb 11.6 L (14.0-18.0) g/dL Hct 37.1 L (42.0-52.0) % MCV 77.8 L (80-100) fl MCH 24.3 L (26-34) pg MCHC 31.3 L (32-36) g/dl RDW 17.2 H (11.5-14.5) % Plt Count 302 (150-375) k/mm3 MPV 9.3 (7.4-10.4) fl Immature Gran % (Auto) 1.0 H (0-0.5) % Neut % (Auto) 76.2 H (45.5-73.1) % Lymph % (Auto) 11.2 L (18.3-44.2) % Bonner % (Auto) 10.1 H (2.6-8.5) % Eos % (Auto) 1.2 (0-4.4) % Baso % (Auto) 0.3 (0.2-1.2) % Lymph # (Auto) 1.02 (0.9-3.2) K/mm3 Bonner # (Auto) 0.9 H (0.1-0.6) K/mm3 Eos # (Auto) 0.1 (0-0.3) K/mm3 Baso # (Auto) 0.0 (0.0-0.1) K/mm3 Abs Immat Gran (auto) 0.09 H (0.00-0.031) K/mm3 Absolute Neuts (auto) 6.9 H (1.3-6.7) K/mm3 Absolute Nucleated RBC 0.000 (0.0-0.012) K/mm3 Nucleated RBC % 0.0 (0.0-0.2) % PT 13.1 (11.1-14.7) Seconds INR 1.0 APTT 26.9 (22.3-36.8) Seconds Sodium 123 L (137-145) mmol/L Potassium 4.8 (3.4-5.0) mmol/L Chloride 95 L (98-107) mmol/L Carbon Dioxide 18 L (22-30) mmol/L Anion Gap 10 (4-12) mmol/L BUN 29 H D (9-20) mg/dL Creatinine 1.48 H (0.7-1.3) mg/dL Estim Creat Clear Calc 25 ml/min Estimated GFR 45 L (59 - ) Glucose 165 H (65-110) mg/dL POC Capillary Glucose 157 H (65-105) mg/dl Serum Osmolality Pending Calcium 9.0 (8.4-10.2) mg/dL Magnesium 2.3 (1.6-2.3) mg/dL Total Bilirubin 0.6 (0.2-1.3) mg/dL AST 14 L (17-59) U/L ALT 12 (6-50) U/L Alkaline Phosphatase 99 (38-126) U/L Troponin I < 0.012 (0.000-0.034) ng/mL NT-Pro-B Natriuret Pep 125 H (19.9-100) pg/mL Total Protein 7.0 (6.3-8.2) g/dL Albumin 3.7 (3.5-5.1) g/dL TSH (Reflex) 0.553 (0.465-4.68) uIU/mL <Kerry Monaco MD - Last Filed: 06/29/24 21:03> Lab Results 06/29/24 06/29/24 Range/Units 17:53 17:55 WBC 9.1 (4.5-10.0) K/mm3 RBC 4.77 (4.6-6.20) M/mm3 Hgb 11.6 L (14.0-18.0) g/dL Hct 37.1 L (42.0-52.0) % MCV 77.8 L (80-100) fl MCH 24.3 L (26-34) pg MCHC 31.3 L (32-36) g/dl RDW 17.2 H (11.5-14.5) % Plt Count 302 (150-375) k/mm3 MPV 9.3 (7.4-10.4) fl Immature Gran % (Auto) 1.0 H (0-0.5) % Neut % (Auto) 76.2 H (45.5-73.1) % Lymph % (Auto) 11.2 L (18.3-44.2) % Bonner % (Auto) 10.1 H (2.6-8.5) % Eos % (Auto) 1.2 (0-4.4) % Baso % (Auto) 0.3 (0.2-1.2) % Lymph # (Auto) 1.02 (0.9-3.2) K/mm3 Bonner # (Auto) 0.9 H (0.1-0.6) K/mm3 Eos # (Auto) 0.1 (0-0.3) K/mm3 Baso # (Auto) 0.0 (0.0-0.1) K/mm3 Abs Immat Gran (auto) 0.09 H (0.00-0.031) K/mm3 Absolute Neuts (auto) 6.9 H (1.3-6.7) K/mm3 Absolute Nucleated RBC 0.000 (0.0-0.012) K/mm3 Nucleated RBC % 0.0 (0.0-0.2) % PT 13.1 (11.1-14.7) Seconds INR 1.0 APTT 26.9 (22.3-36.8) Seconds Sodium 123 L (137-145) mmol/L Potassium 4.8 (3.4-5.0) mmol/L Chloride 95 L (98-107) mmol/L Carbon Dioxide 18 L (22-30) mmol/L Anion Gap 10 (4-12) mmol/L BUN 29 H D (9-20) mg/dL Creatinine 1.48 H (0.7-1.3) mg/dL Estim Creat Clear Calc 25 ml/min Estimated GFR 45 L (59 - ) Glucose 165 H (65-110) mg/dL POC Capillary Glucose 157 H (65-105) mg/dl Serum Osmolality Pending Calcium 9.0 (8.4-10.2) mg/dL Magnesium 2.3 (1.6-2.3) mg/dL Total Bilirubin 0.6 (0.2-1.3) mg/dL AST 14 L (17-59) U/L ALT 12 (6-50) U/L Alkaline Phosphatase 99 (38-126) U/L Troponin I < 0.012 (0.000-0.034) ng/mL NT-Pro-B Natriuret Pep 125 H (19.9-100) pg/mL Total Protein 7.0 (6.3-8.2) g/dL Albumin 3.7 (3.5-5.1) g/dL TSH (Reflex) 0.553 (0.465-4.68) uIU/mL <Dylon Webb MD - Last Filed: 06/29/24 23:07> Critical Care Time Critical Care Time Critical Care Time: Yes <Kerry Monaco MD - Last Filed: 06/29/24 21:03> Total Critical Care Time: 30 <Kerry Monaco MD - Last Filed: 06/29/24 21:03> Discharge Plan Discharge Clinical Impression: Seizure-like activity, Syncope, Chronic hyponatremia <Kerry Monaco MD - Last Filed: 06/29/24 21:03> Patient Disposition: Still a Patient <Kerry Monaco MD - Last Filed: 06/29/24 21:03> Condition: Improved <Kerry Monaco MD - Last Filed: 06/29/24 21:03>
--- NOTE | 2024-06-29 17:29 | ECG_ITS ---
Test Date: 2024-06-29 17:51:42 Measurements Intervals [place] Rate: 66 P: 70 NM: 165 QRS: -65 QRSD: 148 T: 54 QT: 397 QTc: 417 Interpretive Statements SINUS RHYTHM WITH MARKED SINUS ARRHYTHMIA RIGHT BUNDLE BRANCH BLOCK [120+ ms QRS DURATION, UPRIGHT V1, 40+ ms S IN I/aVL/V4/V5/V6] LEFT ANTERIOR FASCICULAR BLOCK [QRS AXIS <= -45, QR IN I, RS IN II] No previous ECG available for comparison Electronically Signed On 06-29-2024 21:24:38 SIX SIGMA PROJECT MANAGER by Gabbi Christianson M.D.
[2024-06-29 17:59] LABS: Glucose Point of Care 157 mg/dl (65-105)
[2024-06-29 17:59] LABS: Basophils Percent Auto 0.3 % (0.2-1.2); Eosinophils Absolute Auto 0.1 K/mm3 (0-0.3); Eosinophils Percent Auto 1.2 % (0-4.4); Hematocrit 37.1 % (42.0-52.0); Hemoglobin 11.6 g/dL (14.0-18.0); Immature Granulocyte Absolute 0.09 K/mm3 (0.00-0.031); Lymphocytes Absolute Auto 1.02 K/mm3 (0.9-3.2); Lymphocytes Percent Auto 11.2 % (18.3-44.2); Mean Corpuscular HGB Conc 31.3 g/dl (32-36); Mean Corpuscular Hemoglobin 24.3 pg (26-34); Mean Corpuscular Volume 77.8 fl (80-100); Mean Platelet Volume 9.3 fl (7.4-10.4); Monocytes Absolute Auto 0.9 K/mm3 (0.1-0.6); Monocytes Percent Auto 10.1 % (2.6-8.5); Neutrophils Absolute Auto 6.9 K/mm3 (1.3-6.7); Neutrophils Percent Auto 76.2 % (45.5-73.1); Platelet Count Result 302 k/mm3 (150-375); Red Blood Count 4.77 M/mm3 (4.6-6.20); Red Cell Distribution Width 17.2 % (11.5-14.5); White Blood Count 9.1 K/mm3 (4.5-10.0)
[2024-06-29 18:07] LABS: Alanine Aminotransferase 12 U/L (6-50); Albumin Level 3.7 g/dL (3.5-5.1); Alkaline Phosphatase 99 U/L (38-126); Anion Gap 10 mmol/L (4-12); Aspartate Amino Transferase 14 U/L (17-59); Bilirubin,Total 0.6 mg/dL (0.2-1.3); Blood Urea Nitrogen 29 mg/dL (9-20); Carbon Dioxide 18 mmol/L (22-30); Chloride 95 mmol/L (98-107); Estimated CRCL calculation 25 ml/min; Estimated Glomerular Filt Rate 45; Glucose 165 mg/dL (65-110); Magnesium 2.3 mg/dL (1.6-2.3); Potassium 4.8 mmol/L (3.4-5.0); Sodium 123 mmol/L (137-145)
[2024-06-29 18:09] LABS: Partial Thromboplastin Time 26.9 Seconds (22.3-36.8); Prothrombin Time 13.1 Seconds (11.1-14.7)
[2024-06-29 18:19] LABS: NT Pro B Type Natriuretic Pept 125 pg/mL (19.9-100); Troponin I < 0.012 ng/mL (0.000-0.034)
--- OUTSIDE RECORDS SUMMARY | 2024-06-29 18:26 | XMS_ITS | Continuity of Care Document ---
Author Organization [facility] Address [address] [place] [address] Phone Care Team Providers Care Edge Grinder Machine Name Role Phone Rose Reyna Unavailable Unavailable [...] Providers Copied on Encounter Office/outpat ient Visit, [facility], [address], [place], [place], [id number], [place] tel:[phone] [facility] No Information 6201 0 Reyna Rose. [address], [place], [address], [place]. tel:[phone] Office/outpat ient Visit, [facility], [address], [place], [place], [id number], [place] tel:[phone] [facility] No Information 9201 0 Monet Sanchezl. [address] [facility] [address], [place], [address], [place]. tel:[phone] Referring Provider: Bryant stoddard, [facility] [address], [place], [place], [facility]. tel:[phone] [facility], [address], [place], [place], [id number], [place] tel:[phone] [facility] No Information 8201 0 Monet Bryant. [address] [facility] [address], [place], [address], [place]. tel:[phone] Referring Provider: Bryant stoddard, [address], [place], [place], [facility]. tel:[phone] [facility], [address], [place], [place], [id number], [place] tel:[phone] [facility] No Information Feb-0 1-201 0 Krishnasamy Bryant. [address], [place], [address], [place]. tel:[phone] Referring Provider: Bryant stoddard, [facility] [address], [place], [place], [facility]. tel:[phone] [facility], [address] [place] [address] [address], [place], [place], [id number], [place] tel:[phone] [facility] No Information Oct-0 7-200 9 Krishnasamy Bryant. [address] [facility] [address], [place], [facility], [place]. tel:[phone] Office/outpat ient Visit, [facility], [address] [place] [address] [address], [place], [place], [id number], [place] tel:[phone] [facility] No Information Ha-0 3-200 9 Krishnasamy Bryant. [address] [place], [place] [address] [address], [place], [facility], [place]. tel:[phone] [facility], [address] [place] [address] [address], [place], [place], [id number], [place] tel:[phone] [facility] No Information October-1 3-200 9 Krishnasamy Bryant. [address] [place], [place] [address] [address], [place], [facility], [place]. tel:[phone] [facility], [address] [place] [address] [address], [place], [place], [id number], [place] tel:[phone] [facility] No Information 1 4-200 9 Krishnasamy Bryant. [facility] [address], [place], [facility], [place]. tel:[phone] Referring Provider: Bryant stoddard, [address] [place], [place] [address] [address], [place], [place], [facility]. tel:[phone] [facility], [address], [place], [place], [id number], [place] tel:[phone] [facility] No Information 2-200 9 Krishnasamy Bryant. [address] [facility] [address], [place], [address], [place]. tel:[phone] Referring Provider: Bryant stoddard, [address] [facility] [address], [place], [address]. tel:[phone] Office/outpat ient Visit, [facility], [address], [place], [place], [id number], [place] tel:[phone] [facility] No Information 9-200 8 Krishnasamy Bryant. [address] [facility] [address], [place], [address], [place]. tel:[phone] Office/outpat ient Visit, [facility], [address], [place], [place], [id number], [place] tel:[phone] [facility] No Information 0-200 8 Krishnasamy Bryant. [address] [facility] [address], [place], [address], [place]. tel:[phone] Referring Provider: Bryant stoddard, [address] [facility] [address], [place], [address]. tel:[phone] Office/outpat ient Visit, [facility], [address], [place], [place], [id number], [place] tel:[phone] [facility] No Information Aug- 0-200 8 Krishnasamy Bryant. [address] [facility] [address], [place], [address], [place]. tel:[phone] [facility], [address], [place], [place], [id number], tel:[phone] [facility] No Information Nov-0 5-200 7 Zeny Rosen. [address] [place], [place], [id number], . tel:[phone] Referring Provider: Silas Chang, [address] [place], [address] . tel:[phone] Office/outpat ient Visit, [facility], [address], [place], [place], [id number], tel:[phone] [facility] No Information Marcin-0 9-200 7 Zeny Rosen. [address] [place], [place], [id number], . tel:[phone] Office/outpat ient Visit, [facility], [address] [place] [address] [address], [place], [place], [id number], tel:[phone] [facility] No Information Mar-2 6-200 7 Zeny Rosen. [address] [place], [place], [address], . tel:[phone] Referring Provider: Silas Chang, [address] [place], [address] . tel:[phone] Family History Family Member Type Diagnosis Age At Onset No Information Payers Payer name Insurance type Covered alliance party ID Authoriza tidariel(s) [place] [id number] [id number] Social History Type Description Quantity Date Captured [...]
--- OUTSIDE RECORDS SUMMARY | 2024-06-29 18:26 | XMS_ITS | Clinical Summary ---
Author Organization [facility] [address] Address [address] [place] [address] Care Team Providers Care Qa Auditor Name Role Phone Andrew Hart MD Primary Care Prov ider Deni Kim PA Unavailable [phone] Allergies No known active allergies Medications levothyroxine [...] (01/01/2021): Added automatically from request for surgery [id number] Immunizations Name Administration Dates Next Due Pfizer [...] on file Legal Sex Male 2:31 AM CLINICAL RESEARCH COORDINATOR Gender Identity Not on file Sexual Orientation Not on file Obstetrics History Last Filed Vital Signs Vital Sign Reading Time Taken Comments Blood Pressure 125/62 08/08/2022 10:21 AM CLINICAL RESEARCH COORDINATOR Pulse 73 08/08/2022 10:21 AM CLINICAL RESEARCH COORDINATOR Temperature 36.4 ??C (97.6 ??F) 01/19/2021 2:30 PM CD T Respiratory Rate 20 01/19/2021 2:30 PM CDT Oxygen Saturation 99% 01/19/2021 2:30 PM CDT Inhaled Oxygen Concentration - - Weight 64.9 kg (143 lb) 08/08/2022 10:21 AM CLINICAL RESEARCH COORDINATOR Height 170.2 cm (5' 7 ) 08/08/2022 10:21 AM CLINICAL RESEARCH COORDINATOR Body Mass Index 22.4 08/08/2022 10:21 AM CLINICAL RESEARCH COORDINATOR Plan of Treatment Health Maintenance Due Date Last Done Comments Depression Screening 1935 Fall Risk Assessment 1935 Pneumococcal vaccine 65+ (1 of 2 - PCV) 1941 DTaP/Tdap/Td Vaccine (1 - Tdap) 1946 Hepatitis B Screening 1953 Zoster Vaccine (1 of 2) 1985 Well Visit 65+ 2000 Covid-19 Vaccine (3 - season) 2024, 09/09/2020 Influenza Vaccine (#1) 2024 Medical Devices Implanted Type Area Service Establishment Attendant Device Identifier Shelf Expiration Date Model / Serial / Lot [employer] 6195-1-001 Cement Bone Simplex Gentamicin High Viscosity 40gm - Sn/A - [id number] Implanted:Qty: 1 on 01/19/2021 by Andreas Hanks MD at [facility] Left: Knee [employer] [id number] 10/02/2021 6195-1-001 / N/A / [id number] [employer] 6195-1-001 Cement Bone Simplex Gentamicin High Viscosity 40gm - [id number] Implanted:Qty: 1 on 01/19/2021 by Andreas Hanks MD at [facility] Left: Knee [employer] [id number] 10/02/2021 6195-1-001 / / [id number] [employer] [id number] Attune Cruciate Retain Cementless Knee Left 6 Component Femoral - [id number] Implanted:Qty: 1 on 01/19/2021 by Andreas Hanks MD at [facility] Left: Knee [employer] 09/02/2030 [id number] / / [id number] [employer] [id number] Attune 10mm Cruciate Retaining Fix Bearing Knee 6 Insert Tibial - [id number] Implanted:Qty: 1 on 01/19/2021 by Andreas Hanks MD at [facility] Left: Knee [employer] 02/02/2023 [id number] / / [id number] [employer] [id number] Attune S+ Cement Fix Bearing Knee 7 Baseplate Tibial - [id number] Implanted:Qty: 1 on 01/19/2021 by Andreas Hanks MD at [facility] Left: Knee [employer] 11/02/2030 [id number] / / [id number] Insurance [facility] Care Teams Qa Auditor Relationship Specialty Start Date End Date Andrew Hart MD [address] [place] [address] PCP - General Family Medicine 11/19/20 Robina Cheema PA [address] [place] [address] Physician [place] Plant Operator Orthopedic Surgery 01/19/21
--- OUTSIDE RECORDS SUMMARY | 2024-06-29 18:26 | XMS_ITS | Referral Summary ---
Author Organization [facility] [address] Address [address] [place] [address] Care Team Providers Care Commercial Fishing Vessel Operator Name Role Phone Andrew Hart MD Primary Care Prov ider Deni Kim PA Unavailable [phone] Allergies No known active allergies Medications levothyroxine [...] (01/01/2021): Added automatically from request for surgery [id number] Immunizations Name Administration Dates Next Due Pfizer [...] on file Legal Sex Male 2:31 AM MANAGER RETAIL SALES Gender Identity Not on file Sexual Orientation Not on file Last Filed Vital Signs Vital Sign Reading Time Taken Comments Blood Pressure 125/62 08/08/2022 10:21 AM MANAGER RETAIL SALES Pulse 73 08/08/2022 10:21 AM MANAGER RETAIL SALES Temperature 36.4 ??C (97.6 ??F) 01/19/2021 2:30 PM CD T Respiratory Rate 20 01/19/2021 2:30 PM CDT Oxygen Saturation 99% 01/19/2021 2:30 PM CDT Inhaled Oxygen Concentration - - Weight 64.9 kg (143 lb) 08/08/2022 10:21 AM MANAGER RETAIL SALES Height 170.2 cm (5' 7 ) 08/08/2022 10:21 AM MANAGER RETAIL SALES Body Mass Index 22.4 08/08/2022 10:21 AM MANAGER RETAIL SALES Plan of Treatment Not on file Medical Devices Implanted Type Area Machine Tank Operator Device Identifier Shelf Expiration Date Model / Serial / Lot [employer] 6195-1-001 Cement Bone Simplex Gentamicin High Viscosity 40gm - Sn/A - [id number] Implanted:Qty: 1 on 01/19/2021 by Andreas Hanks MD at [facility] Left: Knee [employer] [id number] 10/02/2021 6195-1-001 / N/A / [id number] [employer] 6195--[id number] Cement Bone Simplex Gentamicin High Viscosity 40gm - [id number] Implanted:Qty: 1 on 01/19/2021 by Andreas Hanks MD at [facility] Left: Knee [employer] [id number] 10/02/2021 [id number] / / [id number] [employer] [id number] Attune Cruciate Retain Cementless Knee Left 6 Component Femoral - [id number] Implanted:Qty: 1 on 01/19/2021 by Andreas Hakns MD at [facility] Left: Knee [employer] 09/02/2030 [id number] / / [id number] [employer] [id number] Attune 10mm Cruciate Retaining Fix Bearing Knee 6 Insert Tibial - [id number] Implanted:Qty: 1 on 01/19/2021 by Andreas Hanks MD at [facility] Left: Knee [employer] 02/02/2023 [id number] / / [id number] [employer] [id number] Attune S+ Cement Fix Bearing Knee 7 Baseplate Tibial - [id number] Implanted:Qty: 1 on 01/19/2021 by Andreas Hanks MD at [facility] Left: Knee [employer] 11/02/2030 [id number] / / [id number] Insurance [facility] Care Teams Commercial Fishing Vessel Operator Relationship Specialty Start Date End Date Andrew Hart MD [address] [place] [address] PCP - General Family Medicine 11/19/20 Robina Cheema PA [address] [place] [address] Physician Gsa Coordinator Orthopedic Surgery 01/19/21
--- NOTE | 2024-06-29 19:50 | PM.IMHP ---
H&P: HPI History of Present Illness Date/Time: 06/29/24 19:50 Chief Complaint: Unresponsive episode. Narrative: This is a very pleasant 88-year-old male with history of stroke, hypertension, type 2 diabetes mellitus, chronic kidney disease, chronic hyponatremia, anemia, hypothyroidism, duodenal ulcer, and benign prostatic hyperplasia who presented to the emergency department who presented to the emergency department via EMS for evaluation after an unresponsive episode. The patient provides the following history and his son Broderick provides additional information with the patient's permission. He has been staying with his son recently as his is transitioning to a memory care facility which has caused an increase in stress and trouble sleeping. He was started on trazodone but did not tolerate it due to grogginess in the morning and more recently he was started on alprazolam which is helping with sleep without the side effects. He has noticed an increase in episodes of lightheadedness and dizziness with position changes over the past couple of weeks and the other day it sounds as though he had a near syncopal episode while in the kitchen still making toes. He suddenly felt lightheaded and fell back onto the floor though he does not think there was any loss of consciousness. Since that time he has had pain in the mid to lower back which seems to be present only with moving and he has been taking Tylenol and Advil with benefit. In any event, today he and his son were sitting down watching television and the patient had fallen asleep. He then suddenly woke up and was ?babbling incoherently when his eyes rolled into the back of his head and he stopped responding and breathing for 15 to 20 seconds before gasping for air.? The patient tells me that he remembers waking up as he had a sudden urge to have a bowel movement; he used a Dulcolax suppository earlier on in the day. He then tried to get up with his cane to go to the bathroom but began to feel weak and lightheaded and his son helped him to the floor. At that time the patient was pale, diaphoretic, and nauseated but son called 911. There were no reports of seizure activity. The patient has no history of sleep apnea and denies concerns for such. He has not had any recent change in medications aside from the addition of alprazolam for sleep. He has been eating and drinking as per usual. Weight has been stable. He denies fever, chills, sweats, cold and flu symptoms, chest pain, pleuritic pain, palpitations, orthopnea, paroxysmal nocturnal dyspnea, lower extremity edema, calf pain, vomiting, dysuria, and saddle anesthesia. In the ED: He was afebrile on arrival with stable vital signs. Labs are significant for WBC count of 9.1, hemoglobin 11.6, MCV 77.8, sodium 123, chloride 95, carbon dioxide 18, anion gap 10, BUN 29, creatinine 1.48, glucose 165, troponin less than 0.012, proBNP 125. Urinalysis was positive for 1+ protein trace ketones. Chest x-ray did not show any acute findings. Head and cervical spine CT were without acute findings. CT of the thoracic and lumbar spines showed findings within the superior endplate of L1 for which an acute compression fracture suspected. He is being admitted in this setting for further treatment and evaluation. Review of Systems Review of Systems: 12 systems were reviewed and are negative except for as per HPI. 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 Code status: Full code. Smoking status: Former smoker (2-3 cigarettes per day) Tobacco type: cigarettes Living arrangements: with family Additional living arrangements comments: The patient is . His is transitioning to a memory care facility as of June 2024. He is currently staying with his son. 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 Spiritual care concerns: No Meds Home Medications and Allergies Home Medications ?Medication ?Instructions ?Recorded ?Confirmed ?Type latanoprost 0.005 % eye drops 1 drp EACH EYE HS 02/20/21 04/02/24 History timolol maleate 0.5 % eye drops 1 drp EACH EYE QAM 02/20/21 04/02/24 History mirtazapine 15 mg tablet 15 mg PO QHS #90 tabs 03/17/22 04/02/24 Rx finasteride 5 mg tablet 5 mg PO DAILY 12/28/22 04/02/24 History tamsulosin 0.4 mg capsule See Rx Instructions .Route 10/24/23 04/02/24 Rx .COMPLEX #180 caps lisinopril 20 mg tablet See Rx Instructions .Route 04/03/24 Rx .COMPLEX #90 tabs hydrocodone 5 mg-acetaminophen 325 1 tablet PO QID PRN pain #30 tabs 04/15/24 Rx mg tablet levothyroxine 100 mcg tablet 100 mcg PO DAILY #90 tabs 04/16/24 Rx memantine 10 mg tablet See Rx Instructions .Route 05/06/24 Rx .COMPLEX #180 tabs trazodone 50 mg tablet See Rx Instructions PO QHS #30 tabs 06/11/24 Rx lorazepam 0.5 mg tablet 0.5 mg PO BID PRN anxiety #50 tabs 06/21/24 Rx Allergies Allergy/AdvReac Type Severity Reaction Status Date / Time No Known Allergies Allergy Verified 04/02/24 08:17 Vital Signs Vital Signs - 24 hr 06/29/24 17:29 06/29/24 17:39 06/29/24 17:57 Temperature 96.6 F L 96.6 F L Pulse Rate 69 68 69 Respiratory Rate 17 15 Blood Pressure 151/82 H 151/82 H 140/57 L Pulse Oximetry 99 97 Oxygen Delivery Room Air 06/29/24 18:00 06/29/24 18:02 06/29/24 18:55 Temperature 96.7 F L Pulse Rate 76 78 86 Respiratory Rate 18 Blood Pressure 127/69 129/65 110/56 L Pulse Oximetry 97 Oxygen Delivery Exam Narrative: General: Well-developed, nontoxic-appearing elderly gentleman sitting up in bed in no acute distress. Weight: 60.3 kg. BMI: 20.8. HEENT: Normocephalic, atraumatic. PERRL, EOMI. Moist mucous membranes. Neck: Supple. No JVD. Respiratory: Lungs are clear to auscultation bilaterally. Cardiovascular: Regular rate and rhythm with S1-S2. Gastrointestinal: Abdomen is soft, nontender, and nondistended with positive bowel sounds. Skin: Warm and dry. No rash or lesions on limited exam. Extremities: No cyanosis, clubbing, or significant edema. Radial and pedal pulses intact. Neurological: Alert and oriented. Cranial nerves 2-12 are grossly intact. No gross focal deficits to casual conversation. Psychiatric: Pleasant and cooperative with normal mood and affect. He is in good spirits. H&P: Results Labs Labs: Short CBC 06/29/24 Range/Units 17:53 WBC 9.1 (4.5-10.0) K/mm3 Hgb 11.6 L (14.0-18.0) g/dL Hct 37.1 L (42.0-52.0) % Plt Count 302 (150-375) k/mm3 BMP 06/29/24 17:53 Sodium 123 L Potassium 4.8 Chloride 95 L Carbon Dioxide 18 L BUN 29 H D Creatinine 1.48 H Glucose 165 H Calcium 9.0 Cardiac Enzymes 06/29/24 Range/Units 17:53 Troponin I < 0.012 (0.000-0.034) ng/mL Liver Function 06/29/24 Range/Units 17:53 Total Bilirubin 0.6 (0.2-1.3) mg/dL AST 14 L (17-59) U/L ALT 12 (6-50) U/L Alkaline Phosphatase 99 (38-126) U/L Albumin 3.7 (3.5-5.1) g/dL Imaging Chest X-Ray 06/29/24 18:55 IMPRESSION: No focal infiltrate or effusion. Head CT 06/29/24 21:01 Impression: No acute intracranial hemorrhage or suspicious mass effect. Cervical Spine CT 06/29/24 21:08 Impression: Moderate degenerative disease, without acute fracture. Thoracic/Lumbar Spine CT 06/29/24 21:15 Impression: Findings within the superior endplate of L1 for which an acute compression fracture is suspected, as detailed above. Assessment and Plan Assessment and plan (1) Unresponsive episode: Code(s): R40.4 - Transient alteration of awareness Status: Acute (2) Compression fracture of L1 vertebra: Code(s): S32.010A - Wedge compression fracture of first lumbar vertebra, initial encounter for closed fracture Status: Acute (3) Chronic hyponatremia: Code(s): E87.1 - Hypo-osmolality and hyponatremia Status: Acute (4) Microcytic anemia: Code(s): D50.9 - Iron deficiency anemia, unspecified Status: Acute (5) Chronic kidney disease, stage 3b: Code(s): N18.32 - Chronic kidney disease, stage 3b Status: Acute (6) Type 2 diabetes mellitus: Code(s): E11.9 - Type 2 diabetes mellitus without complications Status: Acute (7) Hypothyroidism: Code(s): E03.9 - Hypothyroidism, unspecified Status: Acute (8) Benign prostatic hyperplasia: Code(s): N40.0 - Benign prostatic hyperplasia without lower urinary tract symptoms Status: Acute Plan The patient presented to the emergency department via EMS for evaluation after an unresponsive episode as detailed in HPI. Labs, imaging, EKG, and all reports were personally reviewed. Son reports that the patient was napping when he suddenly awoke and was babbling before becoming incoherent. The patient states that he woke up with a sudden urge to have a bowel movement after having placed a Dulcolax suppository and some of his symptoms are consistent with vasovagal syncope though kind of unusual that he was in a seated position. Sleep apnea is a consideration and ApneaLink has been ordered for screening purposes. He will be monitored on telemetry to rule out cardiac dysrhythmia. Echocardiogram and carotid Doppler ultrasounds ordered. He has chronic hyponatremia though sodium is lower than what it typically runs. Fractional excretion of sodium indicates that did may be pre renal and he has been started on judicious IV fluid rehydration with normal saline with close monitoring of electrolytes. Regarding the L1 compression fracture, a TLSO brace has been ordered and analgesics are available as needed. PT/OT consulted. Check iron studies for evaluation of microcytic anemia. Renal function is stable on review of previous labs. Random glucose was 165 and does not look as though he takes any medications for his diabetes. Initiate sliding scale insulin, Accu-Cheks, and hypoglycemic protocol. Check hemoglobin A1c. Continue levothyroxine and check TSH. His home medications will be reviewed and resumed as appropriate. Findings and treatment plan were discussed with the patient. Questions were solicited and answered to satisfaction. The patient's medical management will be taken over by the hospitalist team in a.m. Quality VTE Prophylaxis VTE prophylaxis: pharmacologic ordered The patient has been admitted under observation status. Hospitalist MIPS Advance Care Plan I have confirmed that the patient's Advanced Care Plan is present, code status is documented, or surrogate decision maker is listed in patient medical record.: Yes Medication Reconciliation I have utilized all available resources to obtain, update and review the patients current medications (includes all prescriptions, OTC, herbals, cannabis, and nutritional supplements).: Yes
[2024-06-29 21:15] LABS: Add Urine Microscopic? YES; Appearance Urine Clear (Clear); Bacteria Urine None Seen /hpf; Bilirubin Urine Negative (Negative); Blood Urine Negative (Negative); Color Urine Yellow (Yellow); Glucose Urine UA Negative (Negative); Ketones Urine Trace mg/dL (Negative); Leukocyte Esterase Ur Negative LEU/UL (Negative); Nitrate Urine Negative (Negative); Protein Urine 1+ mg/dL (Negative); RBC Urine 0-2 /hpf (0-2); Squamous Epithelial Cell Urine None Seen /hpf (Few); WBC Urine 0-5 /hpf (0-3); pH Urine 6.5 (5.0-9.0)
[2024-06-29 21:18] LABS: Sodium Urine Random 77 meq/L
[2024-06-29 21:45] LABS: Urea Random Urine 747 MG/DL
[2024-06-29 21:59] LABS: Thyroid Stimulating Hormone Reflex 0.553 uIU/mL (0.465-4.68)
--- NOTE | 2024-06-29 23:23 | ADMGEN ---
This patient, Blade Mai, was admitted to Medical Room 344-01. Patient/family oriented to hospital policies and general routines including ID bracelet, bed and alarms, visiting hours, pain management, procedures, bathroom and other care routines, personal items, smoking policy, room service/diet, and visiting hours. Information on how to activate the Rapid Response Team has been discussed. Patient/Family are encouraged to report perceived risks to care and to ask questions if they do not understand what they are told or what they should do.
[2024-06-30] VITALS (11 sets, daily range): BP systolic 130–168; BP diastolic 60–75; PULSE 74–98; RESP 16–20; TEMP 36.1–36.3; O2SAT 98–100
[2024-06-30 01:28] LABS: Hemoglobin A1C 7.2 % (<5.7)
[2024-06-30] MEDS: SODIUM CHLORIDE 0.9% IV 1,000 ML 75 ML IV CONT ×3 (05:10→23:23)
[2024-06-30 06:25] LABS: Hematocrit 38.2 % (42.0-52.0); Mean Corpuscular HGB Conc 31.4 g/dl (32-36); Mean Corpuscular Hemoglobin 24.4 pg (26-34); Mean Corpuscular Volume 77.6 fl (80-100); Mean Platelet Volume 9.2 fl (7.4-10.4); Platelet Count Result 276 k/mm3 (150-375); Red Blood Count 4.92 M/mm3 (4.6-6.20); Red Cell Distribution Width 17.1 % (11.5-14.5); White Blood Count 5.3 K/mm3 (4.5-10.0)
[2024-06-30 06:38] LABS: Iron 26 ug/dL (49-181)
[2024-06-30 06:39] LABS: Anion Gap 9 mmol/L (4-12); Blood Urea Nitrogen 23 mg/dL (9-20); Carbon Dioxide 17 mmol/L (22-30); Chloride 99 mmol/L (98-107); Estimated CRCL calculation 34 ml/min; Estimated Glomerular Filt Rate > 60; Glucose 104 mg/dL (65-110); Magnesium 2.3 mg/dL (1.6-2.3); Potassium 4.4 mmol/L (3.4-5.0); Sodium 125 mmol/L (137-145)
[2024-06-30 06:48] LABS: Percent Iron Saturation 8 % (20-50)
[2024-06-30 07:09] LABS: Thyroid Stimulating Hormone Reflex 0.233 uIU/mL (0.465-4.68)
[2024-06-30 07:42] LABS: Folic Acid 8.4 ng/mL (2.76->20)
--- NOTE | 2024-06-30 08:12 | PC.NURSE ---
Patient off of unit to MRI
[2024-06-30 08:26] LABS: Free T4 Free Thyroxine Reflex 1.66 ng/dL (0.78-2.19)
[2024-06-30 09:11] LABS: Glucose Point of Care 157 mg/dl (65-105)
[2024-06-30 09:35] LABS: Total Triiodothyronine (T3) 0.73 NG/ML (0.97-1.69)
[2024-06-30] MEDS: ENOXAPARIN 40 MG/0.4 ML SYRINGE SUB-Q (09:41)
--- NOTE | 2024-06-30 11:44 | WPDNEURCNPN ---
Assessment and Plan Assessment and plan (1) Unresponsive episode: Code(s): R40.4 - Transient alteration of awareness Status: Acute (2) Seizure-like activity: Code(s): R56.9 - Unspecified convulsions Status: Acute Plan 1. History of unresponsive episode rule out the possibility of the seizure as well as TIA 2. All other previous diagnosis remained as such. 3. To this physician in mention that he becomes dizzy and he looks around only for short period raising the possibility benign positional vertigo but again MRI has been done which is negative for any stroke, EEG will be done to rule out the possibility of any focal electrical abnormalities, and echocardiogram will also be done to rule out the possibility of any cardiac source and then we will discuss with the further explanation what is going on whether we are dealing with the seizures, TIA, benign positional vertigo. Consult date: 06/30/24 HPI: Blade Mai is a 88 year old maleFitted to the hospital through the emergency room where he was brought by ambulance from his home along with son and with the information that while the patient was sitting on a chair he suddenly woke up and started talking crazy, his eyes rolled backward, his stops breathing, and became cold and clammy also he tried to jump off the chair and then became unresponsive for about 3 to 4 minutes by the time ambulance came patient started getting better. Patient has had similar multiple episodes in the past without any specific diagnosis and was told that he has hypoglycemia but on the visit to the ER this time he was noted to be not hypoglycemic. The son also to the ER physician that about 4 days ago he was standing holding on his cane and and fell backwards then he comp His medications included latanoprost 0.005 eyedrops in each eye, timolol maleate eyedrops, and finasteride 5mg daily he is not known to be allergic to any medication. He does have ongoing history of 1. Generalized osteoarthritis 2. Dementia 3. Chronic hyponatremia 4. Glaucoma and 5. Carotid artery disease with Doppler study in September of 2017 documenting 50 to 69% stenosis in right internal carotid artery. He has undergone left knee total replacement in addition to the cataract extraction and currently is everyday smoker 2 to 3 cigarettes per day and lives with the family. Initial exam in the emergency room was grossly nonfocal. His is transitioning to the memory care facility which has resulted in some increase in the stress and patient has been started on trazodone but he did not tolerated very well he has noted increase in episodes of lightheadedness and dizziness with position changes over the past couple of weeks and other day he had a near syncopal episode he has been experiencing pain in his mid and lower back since the recent fall when he became dizzy on the day of visit this time the son mention that he had fallen asleep and he then suddenly woke up when babbling incoherent sounds and his eyes roll back into his head and stopped responding and breathing for 15 to 20 seconds. At that time he was pale diaphoretic and nauseated there was no seizure activity noted he has not had any change in the recent medications and his eating or drinking habits have been same. Evaluation up until now includes normal CBC which 12g of hemoglobin and normal platelet count with WBC 5.3, electrolytes sodium 125 potassium 4.4 BUN 23 in 1.13 glucose 157, initial chest x-ray negative, initial CT of the head negative for the bleed or major, CT of the cervical spine compatible with moderate degenerative disease no fracture dislocation an MRI of the brain reveals no acute intracranial bleed or stroke or mass but moderate to advanced chronic microvascular ischemic changes along with the mild generalized atrophy. Review of Systems Review of Systems: All systems reviewed & are unremarkable except as noted in HPI and below PMFSH Past Medical History Medical History Benign prostatic hyperplasia Type 2 diabetes mellitus Chronic hyponatremia Chronic kidney disease, stage 3b Duodenal ulcer (02/2021) Acute blood loss anemia (02/2021) Hypothyroidism Dementia Glaucoma Kidney stones Hyperlipidemia Carotid artery disease carotid Doppler in September 2017 showed 50 to 69% stenosis in the right internal carotid artery Cerebrovascular accident (09/2017) Arthritis Surgical History Surgical History History of total left knee replacement (01/2021) History of cataract extraction (2013) History of vasectomy Family History Family History Mother Hypertension Cerebrovascular accident Sibling Hypertension Diabetes mellitus Father MVA (motor vehicle accident) Social History Social History Social History: Surrogate decision maker: Viktor Mai, son. Code status: Full code. Smoking status: Former smoker (2-3 cigarettes per day) Tobacco type: cigarettes Additional smoking assessment comments: Patient states he has smoked about one cigarette in a week Alcohol intake: never Substance use: never Substance use type: does not use Do You Feel Safe in your Home?: Yes Lack of Transportation: No Lack of Food: Never True Current Housing: I Have Housing Concerned About Future Housing: No Difficulty Paying Gas/Electric Bills: No Difficulty Paying for Meds: No Currently Unemployed: No Education: Trade/Vocational Certificate Difficulty w/ Childcare or Family Care: No Living arrangements: with family Additional living arrangements comments: The patient is . His is transitioning to a memory care facility as of June 2024. He is currently staying with his son. Additional occupation/education comments: Retired [id number] class a truck driver. Spiritual care concerns: No Meds Home Medications and Allergies Home Medications ?Medication ?Instructions ?Recorded ?Confirmed ?Type latanoprost 0.005 % eye drops 1 drp EACH EYE HS 02/20/21 06/30/24 History timolol maleate 0.5 % eye drops 1 drp EACH EYE QAM 02/20/21 06/30/24 History mirtazapine 15 mg tablet 15 mg PO QHS #90 tabs 03/17/22 06/30/24 Rx finasteride 5 mg tablet 5 mg PO DAILY 12/28/22 06/30/24 History tamsulosin 0.4 mg capsule See Rx Instructions .Route 10/24/23 06/30/24 Rx .COMPLEX #180 caps lisinopril 20 mg tablet See Rx Instructions .Route 04/03/24 06/30/24 Rx .COMPLEX #90 tabs levothyroxine 100 mcg tablet 100 mcg PO DAILY #90 tabs 04/16/24 06/30/24 Rx memantine 10 mg tablet See Rx Instructions .Route 05/06/24 06/30/24 Rx .COMPLEX #180 tabs trazodone 50 mg tablet See Rx Instructions PO QHS #30 tabs 06/11/24 06/30/24 Rx lorazepam 0.5 mg tablet 0.5 mg PO BID PRN anxiety #50 tabs 06/21/24 06/30/24 Rx Allergies Allergy/AdvReac Type Severity Reaction Status Date / Time No Known Allergies Allergy Verified 04/02/24 08:17 Vital Signs Vital Signs - 24 hr 06/29/24 17:29 06/29/24 17:39 06/29/24 17:57 Temperature 35.9 C L 35.9 C L Pulse Rate 69 68 69 Respiratory Rate 17 15 Blood Pressure 151/82 H 151/82 H 140/57 L Pulse Oximetry 99 97 Oxygen Delivery Room Air 06/29/24 18:00 06/29/24 18:02 06/29/24 18:55 Temperature 35.9 C L Pulse Rate 76 78 86 Respiratory Rate 18 Blood Pressure 127/69 129/65 110/56 L Pulse Oximetry 97 Oxygen Delivery 06/29/24 21:14 06/29/24 22:22 06/29/24 23:22 Temperature 36.0 C L 36.0 C L 36.3 C L Pulse Rate 71 71 76 Respiratory Rate 13 17 20 Blood Pressure 103/88 136/60 166/86 H Pulse Oximetry 99 100 99 Oxygen Delivery 06/30/24 00:36 06/30/24 02:05 06/30/24 05:00 Temperature Pulse Rate 77 75 Respiratory Rate Blood Pressure Pulse Oximetry Oxygen Delivery Room Air 06/30/24 06:00 06/30/24 09:40 06/30/24 09:40 Temperature 36.3 C L Pulse Rate 74 74 Respiratory Rate 20 Blood Pressure 130/75 Pulse Oximetry 98 Oxygen Delivery Room Air Exam Narrative: Examination today revealed him to be awake alert cooperative with son happened to be in the room, his speech not dysphasic not dysarthric not dysphonic, head normocephalic with no bruit, ear nose throat examination normal, neck supple with no cervical bruits no thyromegaly no lymphadenopathy, heart regular with no murmur, lungs clear to simple auscultation, on soft nontender, neurologically he is awake alert oriented in being in the hospital and was able to receive all the instruction accordingly, people's were round regular feels the vision were full extraocular movements were full with no nystagmus facial sensation was intact face was symmetrical and was not numb oral cavity no fasciculation uvula midline motor examination revealed him to have normal strength and tone in upper and lower extremities with no with no drift against gravity with eyes closed and plantar responses were downgoing reflexes were symmetric there was no evidence of gross cerebellar deficit Results Labs 06/30/24 05:53 06/30/24 05:53 Labs: Short CBC 06/29/24 06/30/24 Range/Units 17:53 05:53 WBC 9.1 5.3 (4.5-10.0) K/mm3 Hgb 11.6 L 12.0 L (14.0-18.0) g/dL Hct 37.1 L 38.2 L (42.0-52.0) % Plt Count 302 276 (150-375) k/mm3 BMP 06/29/24 06/30/24 17:53 05:53 Sodium 123 L 125 L Potassium 4.8 4.4 Chloride 95 L 99 Carbon Dioxide 18 L 17 L BUN 29 H D 23 H Creatinine 1.48 H 1.13 Glucose 165 H 104 Calcium 9.0 9.0 Cardiac Enzymes 06/29/24 Range/Units 17:53 Troponin I < 0.012 (0.000-0.034) ng/mL Liver Function 06/29/24 Range/Units 17:53 Total Bilirubin 0.6 (0.2-1.3) mg/dL AST 14 L (17-59) U/L ALT 12 (6-50) U/L Alkaline Phosphatase 99 (38-126) U/L Albumin 3.7 (3.5-5.1) g/dL Urine 06/29/24 Range/Units 21:03 Urine Color Yellow (Yellow) Urine Appearance Clear (Clear) Urine pH 6.5 (5.0-9.0) Ur Specific [place] 1.020 (1.001-1.035) Urine Protein 1+ H (Negative) mg/dL Urine Glucose (UA) Negative (Negative) mg/dL
[2024-06-30 12:50] LABS: Glucose Point of Care 164 mg/dl (65-105)
--- NOTE | 2024-06-30 14:16 | P.PNIM_ITS ---
Progress Note: A&P Assessment and Plan (1) Unresponsive episode: Code(s): R40.4 - Transient alteration of awareness Status: Acute Assessment and Plan: * Stroke vs TIA vs Seizure vs Medication Reaction * No sign of infection * MRI c/w age * Carotid doppler findings as below but likely not related to his episode: High-grade stenosis of the left internal carotid artery with extensive calcified plaque at the right carotid bulb (70-95 % in degree). Moderate stenosis at the proximal to mid right internal carotid artery (50-69% in degree). Antegrade flow in the bilateral vertebral arteries. * Withhold psychoactive meds (trazodone, mirtazapine) * Monitor with NSR * Echo and EEG pending * Continue ASA (2) Compression fracture of L1 vertebra: Code(s): S32.010A - Wedge compression fracture of first lumbar vertebra, initial encounter for closed fracture Status: Acute Assessment and Plan: * Brace pending (3) Chronic hyponatremia: Code(s): E87.1 - Hypo-osmolality and hyponatremia Status: Acute Assessment and Plan: * Chronic with current labs suggestive of prerenal FENA 0.6% with NL FT4 * Encourage PO intake * F/u lab (4) Microcytic anemia: Code(s): D50.9 - Iron deficiency anemia, unspecified Status: Acute Assessment and Plan: * Iron panel c/w deficiency * 2020 had gastritis and DU's with GIB (5) Chronic kidney disease, stage 3b: Code(s): N18.32 - Chronic kidney disease, stage 3b Status: Acute Assessment and Plan: * Creatinine 06/30 1.13 after hydration (6) Type 2 diabetes mellitus: Code(s): E11.9 - Type 2 diabetes mellitus without complications Status: Acute Assessment and Plan: * A1c 7.2% * Continue SSI (7) Hypothyroidism: Code(s): E03.9 - Hypothyroidism, unspecified Status: Acute Assessment and Plan: * Continue levothryoxine (8) Benign prostatic hyperplasia: Code(s): N40.0 - Benign prostatic hyperplasia without lower urinary tract symptoms Status: Acute Assessment and Plan: * Continue finasteride Subjective Date/time seen: 06/30/24 14:16 Interval history: No further seizure activity. Top denied chest pain shortness a breath. Denied some aching in his shoulders if he moves about but no pain at rest. Review of Systems Review of Systems: All systems reviewed & are unremarkable except as noted in HPI and below Exam Narrative: HEENT: EOMI, PERRL, sclerae nonicteric, pharyngeal mucosa pink and intact NECK: No JVD, adenopathy, or thyromegaly CHEST: Clear to auscultation. Normal effort. HEART: NL S1/S2, regular, no murmur ABDOMEN: BS+, soft, nontender, no mass, no bruits EXTREMITIES: No cyanosis, edema, or clubbing NEUROLOGIC: CN intact and symmetric to inspection. MUSCULOSKELETAL: Tone and strength symmetric. PSYCH: Alert. Oriented to person, place, and time. Objective Data Vital Signs Vital Signs: Vital Signs - 24 hr 06/29/24 17:29 06/29/24 17:39 06/29/24 17:57 Temperature 96.6 F L 96.6 F L Pulse Rate 69 68 69 Respiratory Rate 17 15 Blood Pressure 151/82 H 151/82 H 140/57 L Pulse Oximetry 99 97 Oxygen Delivery Room Air 06/29/24 18:00 06/29/24 18:02 06/29/24 18:55 Temperature 96.7 F L Pulse Rate 76 78 86 Respiratory Rate 18 Blood Pressure 127/69 129/65 110/56 L Pulse Oximetry 97 Oxygen Delivery 06/29/24 21:14 06/29/24 22:22 06/29/24 23:22 Temperature 96.8 F L 96.8 F L 97.3 F L Pulse Rate 71 71 76 Respiratory Rate 13 17 20 Blood Pressure 103/88 136/60 166/86 H Pulse Oximetry 99 100 99 Oxygen Delivery 06/30/24 00:36 06/30/24 02:05 06/30/24 05:00 Temperature Pulse Rate 77 75 Respiratory Rate Blood Pressure Pulse Oximetry Oxygen Delivery Room Air 06/30/24 06:00 06/30/24 09:40 06/30/24 09:40 Temperature 97.3 F L Pulse Rate 74 74 Respiratory Rate 20 Blood Pressure 130/75 Pulse Oximetry 98 Oxygen Delivery Room Air Intake/Output Intake/Output: Intake & Output 06/27/24 06/28/24 06/29/24 06/30/24 23:59 23:59 23:59 23:59 Intake Total 340 Output Total 600 Balance -260 Meds/Results Medications: Active Medications Generic Name Dose Route Start Last Admin Trade Name Freq PRN Reason Stop Dose Admin Acetaminophen 650 mg 06/29/24 20:27 Acetaminophen 325 Mg Tablet PO Q4H PRN Mild Pain (1-3) or Fever Dextrose 12.5 gm 06/30/24 00:35 Dextrose 50% 25 Gm/50 Ml Syringe IV PUSH PRN PRN Hypoglycemia Protocol Enoxaparin Sodium 40 mg 06/30/24 09:00 06/30/24 09:41 Enoxaparin 40 Mg/0.4 Ml Syringe SUB-Q 40 mg DAILY WARD Administration Glucagon 1 mg 06/30/24 00:35 Glucagon For Inj 1 Mg Vial IM PRN PRN Hypoglycemia Protocol Glucose 15 gm 06/30/24 00:35 Glucose Oral Gel 15 Gm Of Glucse In 37.5 Gm Tube PO PRN PRN Hypoglycemia Protocol Sodium Chloride 1,000 mls @ 75 mls/hr 06/29/24 22:55 06/30/24 05:10 Normal Saline Iv IV CONT 75 mls/hr .[id number] WARD Administration Dextrose 1,000 mls @ 100 mls/hr 06/30/24 00:35 Dextrose 5% 1,000 Ml IVPB PRN PRN Hypoglycemia Protocol Insulin Aspart 2 - 5 units 06/30/24 08:00 06/30/24 13:06 Insulin Aspart (*Bkc) 100 Units/Ml SUB-Q Not Given TIDWM WARD Protocol Insulin Aspart 1 - 2 units 06/30/24 21:00 Insulin Aspart (*Bkc) 100 Units/Ml SUB-Q HS WARD Protocol Perflutren Lipid Microsphere 0 ml 06/30/24 00:35 Perflutren Lipid Microspheres 1.5 Ml Vial Diluted To 10 Ml Total Volume IV PUSH 07/03/24 00:35 ONCE PRN adequate visualization Protocol Radiology Results: ITS Impressions Chest X-Ray 06/29/24 18:55 IMPRESSION: No focal infiltrate or effusion. Head CT 06/29/24 21:01 Impression: No acute intracranial hemorrhage or suspicious mass effect. Cervical Spine CT 06/29/24 21:08 Impression: Moderate degenerative disease, without acute fracture. Thoracic/Lumbar Spine CT 06/29/24 21:15 Impression: Findings within the superior endplate of L1 for which an acute compression fracture is suspected, as detailed above. Brain MRI 06/30/24 09:17 IMPRESSION: No acute intracranial hemorrhage, acute infarct, or mass lesion. Moderate to advanced chronic microvascular ischemic changes, and mild generalized atrophy. Carotid Doppler Study 06/30/24 12:22 Impression: High-grade stenosis of the left internal carotid artery with extensive calcified plaque at the right carotid bulb (70-95 % in degree). Moderate stenosis at the proximal to mid right internal carotid artery (50-69% in degree). Antegrade flow in the bilateral vertebral arteries. Note: The methodology used is an indirect measurement validated against a direct method (such as the NASCET criteria) that compares diameters at the stenosis to the distal ICA. Labs Labs: Laboratory Results - last 24 hr 06/29/24 06/29/24 06/29/24 17:53 17:55 21:03 WBC 9.1 RBC 4.77 Hgb 11.6 L Hct 37.1 L MCV 77.8 L MCH 24.3 L MCHC 31.3 L RDW 17.2 H Plt Count 302 MPV 9.3 Immature Gran % (Auto) 1.0 H Neut % (Auto) 76.2 H Lymph % (Auto) 11.2 L [place] % (Auto) 10.1 H Eos % (Auto) 1.2 Baso % (Auto) 0.3 Lymph # (Auto) 1.02 [place] # (Auto) 0.9 H Eos # (Auto) 0.1 Baso # (Auto) 0.0 Abs Immat Gran (auto) 0.09 H Absolute Neuts (auto) 6.9 H Absolute Nucleated RBC 0.000 Nucleated RBC % 0.0 PT 13.1 INR 1.0 APTT 26.9 Sodium 123 L Potassium 4.8 Chloride 95 L Carbon Dioxide 18 L Anion Gap 10 BUN 29 H D Creatinine 1.48 H Estim Creat Clear Calc 25 Estimated GFR 45 L Glucose 165 H POC Capillary Glucose 157 H Hemoglobin A1c 7.2 H Calcium 9.0 Magnesium 2.3 Iron TIBC % Saturation Ferritin Total Bilirubin 0.6 AST 14 L ALT 12 Alkaline Phosphatase 99 Troponin I < 0.012 NT-Pro-B Natriuret Pep 125 H Total Protein 7.0 Albumin 3.7 Vitamin B12 Folate TSH (Reflex) 0.553 Free T4 Total T3 Urine Color Yellow Urine Appearance Clear Urine pH 6.5 Ur Specific [place] 1.020 Urine Protein 1+ H Urine Glucose (UA) Negative Urine Ketones Trace H Ur Blood (Man) Negative Urine Nitrate Negative Urine Bilirubin Negative Urine Urobilinogen 1.0 Leukocyte Esterase Rfl Negative Urine RBC 0-2 Urine WBC 0-5 Ur Squamous Epith Cells None seen Urine Bacteria None seen Urine Casts 3-5 Ur Random Sodium 77 Ur Random Urea 747 Urine Creatinine 166.0 06/30/24 06/30/24 06/30/24 05:53 09:04 12:43 WBC 5.3 RBC 4.92 Hgb 12.0 L Hct 38.2 L MCV 77.6 L MCH 24.4 L MCHC 31.4 L RDW 17.1 H Plt Count 276 MPV 9.2 Immature Gran % (Auto) Neut % (Auto) Lymph % (Auto) [place] % (Auto) Eos % (Auto) Baso % (Auto) Lymph # (Auto) [place] # (Auto) Eos # (Auto) Baso # (Auto) Abs Immat Gran (auto) Absolute Neuts (auto) Absolute Nucleated RBC Nucleated RBC % PT INR APTT Sodium 125 L Potassium 4.4 Chloride 99 Carbon Dioxide 17 L Anion Gap 9 BUN 23 H Creatinine 1.13 Estim Creat Clear Calc 34 Estimated GFR > 60 Glucose 104 POC Capillary Glucose 157 H 164 H Hemoglobin A1c Calcium 9.0 Magnesium 2.3 Iron 26 L TIBC 326 % Saturation 8 L Ferritin 20.80 Total Bilirubin AST ALT Alkaline Phosphatase Troponin I NT-Pro-B Natriuret Pep Total Protein Albumin Vitamin B12 394.0 Folate 8.4 TSH (Reflex) 0.233 L Free T4 1.66 Total T3 0.73 L Urine Color Urine Appearance Urine pH Ur Specific [place] Urine Protein Urine Glucose (UA) Urine Ketones Ur Blood (Man) Urine Nitrate Urine Bilirubin Urine Urobilinogen Leukocyte Esterase Rfl Urine RBC Urine WBC Ur Squamous Epith Cells Urine Bacteria Urine Casts Ur Random Sodium Ur Random Urea Urine Creatinine
[2024-06-30] MEDS: TAMSULOSIN HCL 0.4 MG CAPSULE BY MOUTH (17:14)
[2024-06-30] MEDS: ASPIRIN 81 MG ENTERIC TABLET PO (17:14)
[2024-06-30] MEDS: IRON SUCROSE COMPLEX 200 MG, IRON SUCROSE COMPLEX 100 MG in SODIUM CHLORIDE 0.9% IV 250 ML 176.67 MG IVPB (17:14)
[2024-06-30] MEDS: PANTOPRAZOLE 40 MG TABLET PO (17:14)
[2024-06-30 17:31] LABS: Glucose Point of Care 112 mg/dl (65-105)
[2024-06-30] MEDS: MEMANTINE 10 MG TABLET BY MOUTH (20:53)
[2024-06-30] MEDS: LATANOPROST 0.005% OP SOLN 2.5 ML BTL 1 DROP EACH EYE (20:54)
[2024-06-30] MEDS: ACETAMINOPHEN 325 MG TABLET 650 MG PO (23:22)
[2024-07-01] VITALS (13 sets, daily range): BP systolic 122–139; BP diastolic 46–70; PULSE 63–108; RESP 18–20; TEMP 35.8–36.6; O2SAT 96–98
--- NOTE | 2024-07-01 00:35 | ECHO_ITS ---
Patient Info Name: Blade Mai Age: 88 years : 1935 Gender: Male Ht: 67 in Wt: 132 lbs BSA: 1.68 m2 HR: 74 bpm BP: 168 / 60 mmHg Technical Quality: Fair Exam Date: 07/01/2024 1:09 PM Exam Location: Echo Lab Patient Status: Inpatient Admit Date: 06/30/2024 Staff Ordering Physician: Tanja Adams PA-C Storage Wharfage Clerk: Yaima Faith RDCS Attending Provider: Bettye Dixon APRN Referring Physician: Angie PACHECO; Exam Type: CA echo doppler color flow Study Info Indications R55 - Syncope and collapse Complete two-dimensional, color flow and Doppler transthoracic echocardiogram is performed. Summary 1. Complete two-dimensional, color flow and Doppler transthoracic echocardiogram is performed. 2. Left ventricular chamber dimension is normal. 3. Left ventricular systolic function is normal, estimated at 60-65%. 4. The left ventricular diastolic function is normal. 5. E/e' 8 is minimally elevated. 6. There is moderate aortic valve sclerosis. 7. There is trace tricuspid valve regurgitation. 8. No pulmonary hypertension, estimated pulmonary arterial systolic pressure is 36 mmHg. Left Ventricle E/e' 8 is minimally elevated. Left ventricular chamber dimension is normal. Left ventricular systolic function is normal, estimated at 60-65%. The left ventricular diastolic function is normal. Right Ventricle Right ventricular chamber dimension is normal. Right ventricular systolic function is normal. Left Atria Left atrial chamber dimension is normal. Right Atria Right atrial chamber dimension is normal. Aortic Valve The aortic valve is trileaflet. There is moderate aortic valve sclerosis. There is no aortic valve stenosis. There is no aortic valve regurgitation. Pulmonic Valve There is no pulmonic regurgitation. Mitral Valve There is no mitral valve stenosis. There is no mitral valve regurgitation. Tricuspid Valve There is trace tricuspid valve regurgitation. No pulmonary hypertension, estimated pulmonary arterial systolic pressure is 36 mmHg. Pericardium/Pleural There is no pericardial effusion. Inferior Vena Cava Normal inferior vena cava with >50% collapse upon inspiration consistent with normal right atrial pressure, 5 mmHg. Aorta The aortic root size at the sinus of Valsalva is normal. Left Ventricular Outflow Tract Name Value Normal LVOT 2D LVOT Diameter 2.0 cm LVOT Doppler LVOT Peak Gradient 4 mmHg LVOT Mean Gradient 2 mmHg LVOT VTI 18 cm LVOT VTI/AV VTI Ratio 1.0 LVOT Stroke Volume 56 ml LVOT CO 4.1 l/min LVOT CI 2.5 l/min/m2 Pulmonic Valve Name Value Normal RVOT Doppler RVOT Peak Gradient 2 mmHg PV Doppler PV Peak Gradient 2 mmHg Mitral Valve Name Value Normal MV Doppler MV Decel [place] 468 cm/s2 MV PHT 45 ms MV Area (PHT) 4.8 cm2 4.0-5.0 MV Diastolic Function MV E Peak Velocity 73 cm/s MV A Peak Velocity 71 cm/s MV E/A 1.0 MV Decel Time 156 ms Tricuspid Valve Name Value Normal TV Regurgitation Doppler TR Peak Velocity 279 cm/s TR Peak Gradient 27 mmHg Estimated PAP/RSVP RA Pressure 5 mmHg <=5 PA Systolic Pressure 36 mmHg <36 RV Systolic Pressure 36 mmHg <36 Aorta Name Value Normal Ascending Aorta Ao Root Diameter (MM) 3.2 cm Ao Root Diam Index (MM) 1.9 cm/m2 Aortic Valve Name Value Normal AV Doppler AV Peak Velocity 118 cm/s AV Peak Gradient 6 mmHg AV Mean Gradient 3 mmHg AV VTI 19 cm AV Area (Cont Eq VTI) 2.9 cm2 >=3.0 AV Area (Cont Eq Brodie) 2.4 cm2 AV Regurgitation 2D LVOT Area 3.0 cm2 Ventricles Name Value Normal LV Dimensions 2D/MM IVS Diastolic Thickness (2D) 0.7 cm 0.6-1.0 IVS Diastole Thickness (MM) 1.1 cm 0.6-1.0 LVID Diastole (2D) 4.0 cm 4.2-5.8 LVID Diastole (MM) 4.5 cm 4.2-5.8 LVIW Diastolic Thickness (2D) 1.1 cm 0.6-1.0 LVIW Diastolic Thickness (MM) 0.8 cm 0.6-1.0 LVID Systole (2D) 2.8 cm 2.5-4.0 LVID Systole (MM) 2.5 cm 2.5-4.0 LVOT Diameter 2.0 cm LV Mass (2D Cubed) 107.34 g 88.00-224.00 LV Mass Index (2D Cubed) 64 g/m2 49-115 Relative Wall Thickness (2D) 0.53 LV Mass (MM Cubed) 145.98 g 88.00-224.00 LV Mass Index (MM Cubed) 87 g/m2 49-115 Relative Wall Thickness (MM) 0.37 LV Fractional Shortening/Ejection Fraction 2D/MM LV Fractional Shortening (2D) 31 % 25-43 LV Fractional Shortening (MM) 44 % 25-43 LV EF (MM Teicholz) 75 % 52-72 LV EF (2D Teicholz) 59 % 52-72 LV Diastolic Volume (4C MOD) 54 ml LV EF (4C MOD) 50 % LV Diastolic Volume (2C MOD) 48 ml LV EF (2C MOD) 51 % LV Diastolic Volume (BP MOD) 51 ml 62-150 LV Diastolic Volume Index (BP MOD) 31 ml/m2 34-74 LV Systolic Volume (BP MOD) 26 ml 21-61 LV Systolic Volume Index (BP MOD) 16 ml/m2 11-31 LV EF (BP MOD) 49 % 52-72 LV Diastolic Length (4C) 7.2 cm LV Systolic Length (4C) 6.3 cm LV Stroke Volume (4C MOD) 27 ml Atria Name Value Normal LA Dimensions LA Dimension (MM) 3.3 cm 3.0-4.1 LA Volume (4C A-L) 31 ml LA Volume (BP A-L) 30 ml RA Dimensions RA Area (4C) 13.8 cm2 <=18.0 Report Signatures
[2024-07-01 01:19] LABS: Glucose Point of Care 125 mg/dl (65-105)
[2024-07-01] MEDS: LEVOTHYROXINE SODIUM 100 MCG TABLET PO (06:13)
[2024-07-01 07:22] LABS: Hematocrit 34.5 % (42.0-52.0); Hemoglobin 10.7 g/dL (14.0-18.0); Mean Corpuscular Hemoglobin 24.4 pg (26-34); Mean Corpuscular Volume 78.6 fl (80-100); Platelet Count Result 254 k/mm3 (150-375); Red Blood Count 4.39 M/mm3 (4.6-6.20); Red Cell Distribution Width 17.3 % (11.5-14.5); White Blood Count 6.8 K/mm3 (4.5-10.0)
[2024-07-01 07:40] LABS: Anion Gap 5 mmol/L (4-12); Blood Urea Nitrogen 18 mg/dL (9-20); Calcium 8.4 mg/dL (8.4-10.2); Carbon Dioxide 20 mmol/L (22-30); Chloride 102 mmol/L (98-107); Estimated CRCL calculation 33 ml/min; Estimated Glomerular Filt Rate 59; Glucose 115 mg/dL (65-110); Potassium 4.4 mmol/L (3.4-5.0); Sodium 127 mmol/L (137-145)
[2024-07-01 09:07] LABS: Glucose Point of Care 108 mg/dl (65-105)
[2024-07-01] MEDS: MEMANTINE 10 MG TABLET BY MOUTH ×2 (09:19→20:23)
[2024-07-01] MEDS: ASPIRIN 81 MG ENTERIC TABLET PO (09:19)
[2024-07-01] MEDS: TAMSULOSIN HCL 0.4 MG CAPSULE BY MOUTH ×2 (09:19→17:56)
[2024-07-01] MEDS: lisinopriL 20 MG TABLET BY MOUTH (09:19)
[2024-07-01] MEDS: FINASTERIDE 5 MG TABLET PO (09:19)
[2024-07-01] MEDS: ENOXAPARIN 40 MG/0.4 ML SYRINGE SUB-Q (09:19)
[2024-07-01] MEDS: PANTOPRAZOLE 40 MG TABLET PO (09:19)
[2024-07-01] MEDS: TIMOLOL MALEATE 0.5% OP SOLN 5 ML BOTTLE 1 DROP EACH EYE (09:20)
[2024-07-01 11:57] LABS: Glucose Point of Care 103 mg/dl (65-105)
--- NOTE | 2024-07-01 12:55 | P.PNIM_ITS ---
Progress Note: A&P Assessment and Plan (1) Unresponsive episode: Code(s): R40.4 - Transient alteration of awareness Status: Acute Assessment and Plan: * Stroke vs TIA vs Seizure vs Medication Reaction * No sign of infection * MRI c/w age * Carotid doppler findings as below but likely not related to his episode: High-grade stenosis of the left internal carotid artery with extensive calcified plaque at the right carotid bulb (70-95 % in degree). Moderate stenosis at the proximal to mid right internal carotid artery (50-69% in degree). Antegrade flow in the bilateral vertebral arteries. * Withhold psychoactive meds (trazodone, mirtazapine) * Monitor with NSR * Echo and EEG pending * Continue ASA 07/01 * Echocardiogram and EEG are still pending * Continue neuro checks (2) Compression fracture of L1 vertebra: Code(s): S32.010A - Wedge compression fracture of first lumbar vertebra, initial encounter for closed fracture Status: Acute Assessment and Plan: * Brace pending 07/01 * TLSO brace ordered * PT and OT ordered (3) Chronic hyponatremia: Code(s): E87.1 - Hypo-osmolality and hyponatremia Status: Acute Assessment and Plan: * Chronic with current labs suggestive of prerenal FENA 0.6% with NL FT4 * Encourage PO intake * F/u lab 07/01 * Sodium 127 today * Continue to trend (4) Microcytic anemia: Code(s): D50.9 - Iron deficiency anemia, unspecified Status: Acute Assessment and Plan: * Iron panel c/w deficiency * 2020 had gastritis and DU's with GIB 07/01 * Hemoglobin 10.7 (5) Chronic kidney disease, stage 3b: Code(s): N18.32 - Chronic kidney disease, stage 3b Status: Acute Assessment and Plan: * Creatinine 06/30 1.13 after hydration 07/01 * Creatinine 1.17 * Currently at baseline (6) Type 2 diabetes mellitus: Code(s): E11.9 - Type 2 diabetes mellitus without complications Status: Acute Assessment and Plan: * Blood sugars ranging 103-115 * Hgb A1C 7.2 * Accu checks AC/HS * low dose SSI ordered * hypoglycemic protocol in place * Diabetic diet ordered (7) Hypothyroidism: Code(s): E03.9 - Hypothyroidism, unspecified Status: Acute Assessment and Plan: * Continue levothyroxine 07/01 * no change (8) Benign prostatic hyperplasia: Code(s): N40.0 - Benign prostatic hyperplasia without lower urinary tract symptoms Status: Acute Assessment and Plan: * Continue finasteride 07/01 * No change Time Spent With Patient Time with patient: 25 - 35 minutes Subjective Date/time seen: 07/01/24 12:55 Interval history: Interval history: This is an 88 year old male who presented to the hospital on 06/29/24 for evaluation of unresponsive episode and sustained a ground level fall. Work up in the hospital included a Chest x-ray did not show any acute findings. Head and cervical spine CT were without acute findings. CT of the thoracic and lumbar spines showed findings within the superior endplate of L1 for which an acute compression fracture suspected. Initial labs shown WBC count of 9.1, hemoglobin 11.6, MCV 77.8, sodium 123, chloride 95, carbon dioxide 18, anion gap 10, BUN 29, creatinine 1.48, glucose 165, troponin less than 0.012, proBNP 125. Urinalysis was positive for 1+ protein trace ketones. Patient was fitted with TLSO brace. While inpatient, he had a brain MRI that was negative for any intracranial hemorrhage, acute infarct, or mass, shown moderate to advanced chronic microvascular ischemic changes and mild generalized atrophy. Carotid doppler study shown high grade stenosis of the left internal carotid artery with extensive calcified plaque at the right carotid bulb (70-95%), moderate stenosis at the proximal to mid right internal carotid artery (50-69%), antegrade flow in the bilateral vertebral arteries. Subjective: Patient denies any lightheadedness, dizziness, seizure activity, headache, vision changes, nausea, vomiting, diarrhea, abdominal pain, chest pain, shortness a breath. Labs and imaging reviewed. Review of Systems Review of Systems: All systems reviewed & are unremarkable except as noted in HPI and below Constitutional: Constitutional: Reports as per HPI and Reports no additional constitutional complaints Eyes: Eyes: Reports as per HPI and Reports no additional eye complaints ENT: Reports system reviewed and no additional complaints, except as documented and Reports as per HPI Cardiovascular: Cardiovascular: Reports as per HPI and Reports no additional cardiovascular complaints Respiratory: Respiratory: Reports as per HPI and Reports no additional respiratory complaints Gastrointestinal: Gastrointestinal: Reports as per HPI and Reports no additional gastrointestinal complaints Genitourinary: Genitourinary: Reports no additional male genitourinary complaints and Reports as per HPI Musculoskeletal: Musculoskeletal: Reports no additional musculoskeletal complaints and Reports as per HPI Integumentary/Breasts: Skin/Breast: Reports system reviewed and no additional complaints, except as docu and Reports as per HPI Neurologic: Reports system reviewed and no additional complaints, except as documented and Reports as per HPI Psychiatric: Psychiatric: Reports no additional psychiatric complaints and Reports as per HPI Exam Narrative: General: In no acute distress, well nourished Head: atraumatic, no encephalopathy Eyes: PERRLA, sclera clear ENT: moist mucous membranes, nasal passages clear Neck: supple, no JVD, no adenopathy, trachea midline Cardiac: Normal S1 and S2. RRR, No murmur, gallops or friction rubs, peripheral pulses intact. Respiratory: Lungs clear to auscultation, no adventitious lung sounds, currently on room air Gastrointestinal: soft, non-distended, non-tender, normoactive bowel sounds. : voiding without difficulty. Extremities: moves all extremities well, no edema Skin: clean, dry, intact. No wounds or lesions. Neuro: Alert and oriented x4, cranial nerves intact, no neuro deficits. Psych: normal mood, normal affect, interactive Objective Data Vital Signs Vital Signs: Vital Signs - 24 hr 06/30/24 14:52 06/30/24 15:49 06/30/24 15:49 Temperature 97.3 F L 97.3 F L Pulse Rate 91 91 Respiratory Rate 16 16 Blood Pressure 147/74 H 147/74 H Pulse Oximetry 100 100 Oxygen Delivery Room Air Fraction of Inspired Oxygen 06/30/24 15:51 06/30/24 16:00 06/30/24 20:00 Temperature Pulse Rate 86 80 Respiratory Rate Blood Pressure 151/72 H Pulse Oximetry 99 Oxygen Delivery Room Air Fraction of Inspired Oxygen 06/30/24 20:00 06/30/24 22:00 06/30/24 22:08 Temperature 97.0 F L Pulse Rate 98 85 Respiratory Rate 20 Blood Pressure 168/60 H Pulse Oximetry 98 99 Oxygen Delivery Room Air Fraction of Inspired Oxygen 21 07/01/24 00:00 07/01/24 04:00 07/01/24 06:00 Temperature 97.0 F L Pulse Rate 72 84 91 Respiratory Rate 18 Blood Pressure 139/70 Pulse Oximetry 97 Oxygen Delivery Fraction of Inspired Oxygen 07/01/24 06:00 07/01/24 06:05 07/01/24 06:10 Temperature 97.0 F L 97.7 F 97.8 F Pulse Rate 91 89 108 H Respiratory Rate 18 18 18 Blood Pressure 139/70 132/66 130/69 Pulse Oximetry 97 97 96 Oxygen Delivery Fraction of Inspired Oxygen 07/01/24 09:20 07/01/24 09:20 Temperature Pulse Rate 83 Respiratory Rate Blood Pressure Pulse Oximetry Oxygen Delivery Room Air Fraction of Inspired Oxygen Intake/Output Intake/Output: Intake & Output 06/28/24 06/29/24 06/30/24 07/01/24 23:59 23:59 23:59 23:59 Intake Total 2588.8 1360 Output Total 1225 1610 Balance 1363.8 -250 Meds/Results Medications: Active Medications Generic Name Dose Route Start Last Admin Trade Name Freq PRN Reason Stop Dose Admin Acetaminophen 650 mg 06/29/24 20:27 06/30/24 23:22 Acetaminophen 325 Mg Tablet PO 650 mg Q4H PRN Administration Mild Pain (1-3) or Fever Aspirin 81 mg 06/30/24 14:40 07/01/24 09:19 Aspirin 81 Mg Enteric Tablet PO 81 mg QAM WARD Administration Dextrose 12.5 gm 06/30/24 00:35 Dextrose 50% 25 Gm/50 Ml Syringe IV PUSH PRN PRN Hypoglycemia Protocol Enoxaparin Sodium 40 mg 06/30/24 09:00 07/01/24 09:19 Enoxaparin 40 Mg/0.4 Ml Syringe SUB-Q 40 mg DAILY WARD Administration Finasteride 5 mg 07/01/24 09:00 07/01/24 09:19 Finasteride 5 Mg Tablet PO 5 mg DAILY WARD Administration Glucagon 1 mg 06/30/24 00:35 Glucagon For Inj 1 Mg Vial IM PRN PRN Hypoglycemia Protocol Glucose 15 gm 06/30/24 00:35 Glucose Oral Gel 15 Gm Of Glucse In 37.5 Gm Tube PO PRN PRN Hypoglycemia Protocol Sodium Chloride 1,000 mls @ 75 mls/hr 06/29/24 22:55 06/30/24 23:23 Normal Saline Iv IV CONT 75 mls/hr .[id number] WARD Administration Dextrose 1,000 mls @ 100 mls/hr 06/30/24 00:35 Dextrose 5% 1,000 Ml IVPB PRN PRN Hypoglycemia Protocol Insulin Aspart 2 - 5 units 06/30/24 08:00 07/01/24 12:49 Insulin Aspart (*Bkc) 100 Units/Ml SUB-Q Not Given TIDWM WARD Protocol Insulin Aspart 1 - 2 units 06/30/24 21:00 06/30/24 23:23 Insulin Aspart (*Bkc) 100 Units/Ml SUB-Q Not Given HS WARD Protocol Latanoprost 1 drop 06/30/24 21:00 06/30/24 20:54 Latanoprost 0.005% Op Soln 2.5 Ml Btl EACH EYE 1 drop HS WARD Administration Levothyroxine Sodium 100 mcg 07/01/24 06:30 07/01/24 06:13 Levothyroxine Sodium 100 Mcg Tablet PO 100 mcg DAILY@0630 WARD Administration Lisinopril 20 mg 07/01/24 09:00 07/01/24 09:19 Lisinopril 20 Mg Tablet BY MOUTH 20 mg DAILY WARD Administration Lorazepam 0.5 mg 06/30/24 14:24 Lorazepam (*Crx) 0.5 Mg Tablet PO BID PRN anxiety Memantine 10 mg 06/30/24 21:00 07/01/24 09:19 Memantine 10 Mg Tablet BY MOUTH 10 mg Q12HR WARD Administration Pantoprazole Sodium 40 mg 06/30/24 14:40 07/01/24 09:19 Pantoprazole 40 Mg Tablet PO 40 mg QAM WARD Administration Perflutren Lipid Microsphere 0 ml 06/30/24 00:35 Perflutren Lipid Microspheres 1.5 Ml Vial Diluted To 10 Ml Total Volume IV PUSH 07/03/24 00:35 ONCE PRN adequate visualization Protocol Tamsulosin HCl 0.4 mg 06/30/24 17:00 07/01/24 09:19 Tamsulosin Hcl 0.4 Mg Capsule BY MOUTH 0.4 mg BID WARD Administration Timolol Maleate 1 drop 07/01/24 09:00 07/01/24 09:20 Timolol Maleate 0.5% Op Soln 5 Ml Bottle EACH EYE 1 drop QAM WARD Administration Radiology Results: ITS Impressions Chest X-Ray 06/29/24 18:55 IMPRESSION: No focal infiltrate or effusion. Head CT 06/29/24 21:01 Impression: No acute intracranial hemorrhage or suspicious mass effect. Cervical Spine CT 06/29/24 21:08 Impression: Moderate degenerative disease, without acute fracture. Thoracic/Lumbar Spine CT 06/29/24 21:15 Impression: Findings within the superior endplate of L1 for which an acute compression fracture is suspected, as detailed above. Brain MRI 06/30/24 09:17 IMPRESSION: No acute intracranial hemorrhage, acute infarct, or mass lesion. Moderate to advanced chronic microvascular ischemic changes, and mild gen eralized atrophy. Carotid Doppler Study 06/30/24 12:22 Impression: High-grade stenosis of the left internal carotid artery with extensive calcified plaque at the right carotid bulb (70-95 % in degree). Moderate stenosis at the proximal to mid right internal carotid artery (50-69% in degree). Antegrade flow in the bilateral vertebral arteries. Note: The methodology used is an indirect measurement validated against a direct method (such as the NASCET criteria) that compares diameters at the stenosis to the distal ICA. Labs Labs: Laboratory Results - last 24 hr 06/30/24 06/30/24 07/01/24 17:18 21:03 07:04 WBC 6.8 RBC 4.39 L Hgb 10.7 L Hct 34.5 L MCV 78.6 L MCH 24.4 L MCHC 31.0 L RDW 17.3 H Plt Count 254 MPV 9.0 Sodium 127 L Potassium 4.4 Chloride 102 Carbon Dioxide 20 L Anion Gap 5 BUN 18 Creatinine 1.17 Estim Creat Clear Calc 33 Estimated GFR 59 Glucose 115 H POC Capillary Glucose 112 H 125 H Calcium 8.4 07/01/24 07/01/24 08:59 11:49 WBC RBC Hgb Hct MCV MCH MCHC RDW Plt Count MPV Sodium Potassium Chloride Carbon Dioxide Anion Gap BUN Creatinine Estim Creat Clear Calc Estimated GFR Glucose POC Capillary Glucose 108 H 103 Calcium Quality VTE Prophylaxis VTE prophylaxis: pharmacologic ordered
[2024-07-01 17:04] LABS: Glucose Point of Care 104 mg/dl (65-105)
[2024-07-01] MEDS: LATANOPROST 0.005% OP SOLN 2.5 ML BTL 1 DROP EACH EYE (20:23)
[2024-07-02] VITALS (7 sets, daily range): BP systolic 120–160; BP diastolic 68–72; PULSE 61–86; RESP 16–20; TEMP 36.2–36.8; O2SAT 96–98
[2024-07-02] MEDS: LEVOTHYROXINE SODIUM 100 MCG TABLET PO (05:07)
[2024-07-02 08:11] LABS: Glucose Point of Care 102 mg/dl (65-105)
[2024-07-02 08:32] LABS: Glucose Point of Care 104 mg/dl (65-105)
[2024-07-02] MEDS: DOCUSATE SODIUM 100 MG CAPSULE PO (10:00)
[2024-07-02] MEDS: ENOXAPARIN 40 MG/0.4 ML SYRINGE SUB-Q (10:00)
[2024-07-02] MEDS: PANTOPRAZOLE 40 MG TABLET PO (10:00)
[2024-07-02] MEDS: ASPIRIN 81 MG ENTERIC TABLET PO (10:00)
[2024-07-02] MEDS: FINASTERIDE 5 MG TABLET PO (10:00)
[2024-07-02] MEDS: MEMANTINE 10 MG TABLET BY MOUTH (10:00)
[2024-07-02] MEDS: TAMSULOSIN HCL 0.4 MG CAPSULE BY MOUTH (10:00)
[2024-07-02] MEDS: lisinopriL 20 MG TABLET BY MOUTH (10:00)
[2024-07-02] MEDS: TIMOLOL MALEATE 0.5% OP SOLN 5 ML BOTTLE 1 DROP EACH EYE (10:00)
--- NOTE | 2024-07-02 10:13 | P.NEURO_ITS ---
Neurology EEG Report General Information Date of Study: 07/02/24 TEST eeg DIAGNOSIS Seizure-like activity. CONDITION OF RECORDING Awake, drowsy and sleep. EEG NUMBER [id number] CLINICAL HISTORY patient reports ,he was in his kitchen the other day ,when he fell and hit his head. Denied becoming unconscious. EEG DESCRIPTION whole record consists of low-voltage 15 to 21 hertz per 2nd beta activity with poor melody posterior gradient , admixed with intermittent low-voltage 6 to 7 hertz per 2nd theta activity and multiple movements artifacts. Hyperventilation not done. Photic stimulation not done. Non paroxysmal. Nonfocal. Nonlater alizing. IMPRESSION No significant abnormalities noted. Clinical correlation recommended ,this particular EEG does not reveal any focal or paroxysmal activity.
[2024-07-02 11:38] LABS: Glucose Point of Care 135 mg/dl (65-105)
[2024-07-02 15:24] LABS: Osmolality, Urine 582 mOsm/kg (50-1200)
--- NOTE | 2024-07-02 16:45 | PM.DS ---
DS: Admitting Diagnosis Discharge Date 07/02/24 Admitting Diagnosis unresponsive episode compression fracture of L1 vertebrae chronic hyponatremia microcytic anemia chronic kidney disease stage IIIb type 2 diabetes mellitus hypothyroidism DS: Discharge Diagnosis Discharge Diagnosis (1) Unresponsive episode: Code(s): R40.4 - Transient alteration of awareness Status: Acute (2) Compression fracture of L1 vertebra: Code(s): S32.010A - Wedge compression fracture of first lumbar vertebra, initial encounter for closed fracture Status: Acute (3) Chronic hyponatremia: Code(s): E87.1 - Hypo-osmolality and hyponatremia Status: Acute (4) Microcytic anemia: Code(s): D50.9 - Iron deficiency anemia, unspecified Status: Acute (5) Chronic kidney disease, stage 3b: Code(s): N18.32 - Chronic kidney disease, stage 3b Status: Acute (6) Type 2 diabetes mellitus: Code(s): E11.9 - Type 2 diabetes mellitus without complications Status: Acute (7) Hypothyroidism: Code(s): E03.9 - Hypothyroidism, unspecified Status: Acute (8) Benign prostatic hyperplasia: Code(s): N40.0 - Benign prostatic hyperplasia without lower urinary tract symptoms Status: Acute DS: Summary Hospital Course Reason for hospitalization: unresponsive episode compression fracture of L1 vertebrae chronic hyponatremia microcytic anemia chronic kidney disease stage IIIb type 2 diabetes mellitus hypothyroidism Hospital Course: This is an 88 year old male who presented to the hospital on 06/29/24 for evaluation of unresponsive episode and sustained a ground level fall. Work up in the hospital included a Chest x-ray did not show any acute findings. Head and cervical spine CT were without acute findings. CT of the thoracic and lumbar spines showed findings within the superior endplate of L1 for which an acute compression fracture suspected. Initial labs shown WBC count of 9.1, hemoglobin 11.6, MCV 77.8, sodium 123, chloride 95, carbon dioxide 18, anion gap 10, BUN 29, creatinine 1.48, glucose 165, troponin less than 0.012, proBNP 125. Urinalysis was positive for 1+ protein trace ketones. Patient was fitted with TLSO brace. While inpatient, he had a brain MRI that was negative for any intracranial hemorrhage, acute infarct, or mass, shown moderate to advanced chronic microvascular ischemic changes and mild generalized atrophy. Carotid doppler study shown high grade stenosis of the left internal carotid artery with extensive calcified plaque at the right carotid bulb (70-95%), moderate stenosis at the proximal to mid right internal carotid artery (50-69%), antegrade flow in the bilateral vertebral arteries. his high-grade stenosis of the left internal carotid artery might be the cause of his unresponsive episode. PT and OT seen patient and recommended home health. Patient is stable for discharge at this time. He will be followed by [facility] at time of discharge. final diagnosis: compression fracture of L1 vertebrae, high-grade stenosis of the left internal carotid artery Status at Discharge Cognitive/behavioral status at discharge: Alert and oriented x3 Functional status at discharge: uses cane/walker Overall status at discharge: patient is progressing back to baseline Time Spent with Patient Time attestation: Total time spent providing and/or coordinating discharge services: Exam Narrative: General: In no acute distress, well nourished Cardiac: Normal S1 and S2. RRR, No murmur, gallops or friction rubs, peripheral pulses intact. Respiratory: Lungs clear to auscultation, no adventitious lung sounds, currently on room air Gastrointestinal: soft, non-distended, non-tender, normoactive bowel sounds. Skin: clean, dry, intact. No wounds or lesions. Neuro: Alert and oriented x4 DS: Data Data Completed and Pending Completed studies during hospitalization: chest x-ray head CT cervical spine CT thoracic/lumbar spine CT brain MRI carotid Doppler study Pending studies at discharge: none Labs on day of discharge: Labs from last 24 hours 07/02/24 07/02/24 07/01/24 11:33 08:27 20:35 POC Capillary Glucose 135 H 104 102 Serum Osmolality Urine Osmolality 07/01/24 06/29/24 06/29/24 16:49 21:03 17:53 POC Capillary Glucose 104 Serum Osmolality 278 Urine Osmolality 582 Procedures/Treatments: none Discharge Plan Discharge Attending physician on discharge: Hugh Nash Consulting providers: Prince Ladd; Dylon Webb; Gabbi Christianson; Tanja Adams; Spenser Quezada; Kingston Sal; Jeanie Betancourt; Moises Chester Discharging Clinician: Bettye Dixon Anticipated Discharge Date/Time: 07/02/24 16:45 Patient Disposition: Home Health Service Activity: as tolerated Diet: as tolerated and regular Discharge Instructions: Lon Care Coordination Patient has been accepted to have [facility] for RN, PT, OT [phone]. Home Health staff will call to arrange a time to see you in your home. You have been provided a TLSO brace for your compression fracture. It is up to you if you want to wear it or not. Mainly to help with back pain. Continue Tylenol as needed for your back pain. Follow up with primary care doctor in 1 week. Change positions slowly to prevent falling. follow-up with a vascular surgeon for his carotid stenosis Patient Instructions: Vertebral Compression Fracture (DC) Patient Language: Occitan Stand Alone Forms: General Discharge Information Follow-up/Referrals: Andrew Hart MD [Primary Care Provider] - 1 Week Discharge Medications: Continued finasteride 5 mg tablet 5 mg PO DAILY latanoprost 0.005 % drops 1 drp EACH EYE HS timolol maleate 0.5 % drops 1 drp EACH EYE QAM mirtazapine 15 mg tablet 15 mg PO QHS Qty: 90 1RF tamsulosin 0.4 mg capsule See Rx Instructions .ROUTE .COMPLEX Qty: 180 2RF Dose Instruction: TAKE 1 CAPSULE BY MOUTH TWICE A DAY Rx Instructions: TAKE 1 CAPSULE BY MOUTH TWICE A DAY lisinopril 20 mg tablet See Rx Instructions .ROUTE .COMPLEX Qty: 90 3RF Dose Instruction: TAKE 1 TABLET BY MOUTH DAILY Rx Instructions: TAKE 1 TABLET BY MOUTH DAILY levothyroxine 100 mcg tablet 100 mcg PO DAILY Qty: 90 0RF memantine 10 mg tablet See Rx Instructions .ROUTE .COMPLEX Qty: 180 1RF Dose Instruction: TAKE 1 TABLET BY MOUTH TWICE A DAY Rx Instructions: TAKE 1 TABLET BY MOUTH TWICE A DAY trazodone 50 mg tablet See Rx Instructions PO QHS Qty: 30 1RF Rx Instructions: Take 1/2 to 1 tablet at bedtime for sleep orally every day at bedtime; lorazepam 0.5 mg tablet 0.5 mg PO BID PRN (Reason: anxiety) Qty: 50 0RF Date of admission: 06/30/24 07:32 Primary Care Provider: Andrew Hart Admitting Provider: Bean Batista Attending physician on admission: Bettye Dixon Condition: Improved Quality VTE Prophylaxis VTE prophylaxis: pharmacologic ordered Hospitalist MIPS Heart Failure (Exclusion) Patient has history of Heart Transplant or Left Ventricular Assistive Device?: No IF YES, STOP HERE Heart Failure (Qualifier) Patient has current or prior documentation of LVEF less than or equal to 40%, or mod/servere depressed LVSF?: No IF NO, STOP HERE
[2024-07-02 16:57] LABS: Glucose Point of Care 110 mg/dl (65-105)
== END 2024-07-02 17:27 | disposition home health service (06) | DRG 68 ==
LOC: ANHED 19:42 → ANH3MED 22:20
PROVIDERS: Internal Medicine; Physician Assistant; Admitting Provider Internal Medicine; Emergency Provider Emergency Medicine; PCP Family Medicine Adolescent Medicine; Visit Provider Nurse Practitioner Acute Care
DX: I65.23 Occlusion and stenosis of bilateral carotid arteries (principal); S32.010A Wedge compression fracture of first lumbar vertebra, initial encounter for closed fracture; E87.1 Hypo-osmolality and hyponatremia; I12.9 Hypertensive chronic kidney disease with stage 1 through stage 4 chronic kidney disease, or unspecified chronic kidney disease; N18.32 Chronic kidney disease, stage 3b; E11.22 Type 2 diabetes mellitus with diabetic chronic kidney disease; E03.9 Hypothyroidism, unspecified; E78.5 Hyperlipidemia, unspecified; R56.9 Unspecified convulsions; D50.9 Iron deficiency anemia, unspecified; N40.0 Benign prostatic hyperplasia without lower urinary tract symptoms; M15.9 Polyosteoarthritis, unspecified; H40.9 Unspecified glaucoma; F03.90 Unspecified dementia, unspecified severity, without behavioral disturbance, psychotic disturbance, mood disturbance, and anxiety; Z96.652 Presence of left artificial knee joint; Z87.891 Personal history of nicotine dependence; Z87.11 Personal history of peptic ulcer disease; Z87.442 Personal history of urinary calculi; Z86.73 Personal history of transient ischemic attack (TIA), and cerebral infarction without residual deficits
CPT/HCPCS: 36415; 70450; 70553; 71045; 72125; 72128; 72131; 80048; 80053; 81001; 82570; 82607; 82728; 82746; 82948; 83036; 83540; 83550; 83735; 83880; 83930; 83935; 84300; 84439; 84443; 84480; 84484; 84540; 85025; 85027; 85610; 85730; 93005; 93306; 93880; 94762; 95816; 97110; 97161; 97165; 97530; 99285; A9270; A9577; G0378; J1650; J1756; J7030; J7050

== ENCOUNTER 2024-07-10 12:10 | Outpatient (NON) | payer OTHER, SELFPAY ==
[2024-07-10 12:40] LABS: Anion Gap 11 mmol/L (4-12); Blood Urea Nitrogen 23 mg/dL (9-20); Calcium 9.5 mg/dL (8.4-10.2); Carbon Dioxide 20 mmol/L (22-30); Chloride 96 mmol/L (98-107); Estimated Glomerular Filt Rate 54; Glucose 143 mg/dL (65-110); Potassium 4.2 mmol/L (3.4-5.0); Sodium 127 mmol/L (137-145)
--- OUTSIDE RECORDS SUMMARY | 2024-07-10 13:19 | XMS_ITS | Referral Summary ---
Author Organization [facility] [address] Address [address] [place] [address] Care Team Providers Care Chip Silo Tender Name Role Phone Andrew Hart MD Primary Care Prov ider Deni Kim PA Unavailable [phone] Allergies No known active allergies Medications levothyroxine [...] (01/01/2021): Added automatically from request for surgery [id number] Immunizations Name Administration Dates Next Due Pf[employer] [...] on file Legal Sex Male 2:31 AM MENDING CARRIER Gender Identity Not on file Sexual Orientation Not on file Last Filed Vital Signs Vital Sign Reading Time Taken Comments Blood Pressure 125/62 08/08/2022 10:21 AM MENDING CARRIER Pulse 73 08/08/2022 10:21 AM MENDING CARRIER Temperature 36.4 ??C (97.6 ??F) 01/19/2021 2:30 PM CD T Respiratory Rate 20 01/19/2021 2:30 PM CDT Oxygen Saturation 99% 01/19/2021 2:30 PM CDT Inhaled Oxygen Concentration - - Weight 64.9 kg (143 lb) 08/08/2022 10:21 AM MENDING CARRIER Height 170.2 cm (5' 7 ) 08/08/2022 10:21 AM MENDING CARRIER Body Mass Index 22.4 08/08/2022 10:21 AM MENDING CARRIER Plan of Treatment Not on file Medical Devices Implanted Type Area Flight Operations Specialist Device Identifier Shelf Expiration Date Model / Serial / Lot [employer] 6195-1-001 Cement Bone Simplex Gentamicin High Viscosity 40gm - Sn/A - [id number] Implanted:Qty: 1 on 01/19/2021 by Andreas Hanks MD at [employer] Left: Knee [employer] [id number] 10/02/2021 6195-1-001 / N/A / [id number] [employer] 6195--[id number] Cement Bone Simplex Gentamicin High Viscosity 40gm - [id number] Implanted:Qty: 1 on 01/19/2021 by Andreas Hanks MD at [employer] Left: Knee [employer] [id number] 10/02/2021 [id number] / / [id number] [employer] [id number] Attune Cruciate Retain Cementless Knee Left 6 Component Femoral - [id number] Implanted:Qty: 1 on 01/19/2021 by Andreas Hanks MD at [employer] Left: Knee [employer] 09/02/2030 [id number] / / [id number] [employer] [id number] Attune 10mm Cruciate Retaining Fix Bearing Knee 6 Insert Tibial - [id number] Implanted:Qty: 1 on 01/19/2021 by Andreas Hanks MD at [employer] Left: Knee [employer] 02/02/2023 [id number] / / [id number] [employer] [id number] Attune S+ Cement Fix Bearing Knee 7 Baseplate Tibial - [id number] Implanted:Qty: 1 on 01/19/2021 by Andreas Hanks MD at [employer] Left: Knee [employer] 11/02/2030 [id number] / / [id number] Insurance [id number] Care Teams Chip Silo Tender Relationship Specialty Start Date End Date Andrew Hart MD [address] [place] [address] PCP - General Family Medicine 11/19/20 Robina Cheema PA [address] [place] [address] Physician Job Foreman Orthopedic Surgery 01/19/21
--- OUTSIDE RECORDS SUMMARY | 2024-07-10 13:19 | XMS_ITS | Continuity of Care Document ---
Author Organization [facility] Address [address] [place] [address] Phone Care Team Providers Care Count Team Clerk Name Role Phone Rose Reyna Unavailable Unavailable [...] Providers Copied on Encounter Office/outpat ient Visit, [facility], [address], [place], [place], [address], [place] tel:[phone] [facility] No Information 6201 0 Reyna Rose. [address], [place], [address], [place]. tel:[phone] Office/outpat ient Visit, [facility], [address], [place], [place], [address], [place] tel:[phone] [facility] No Information 9201 0 Monet Sanchezl. [address] [facility] [address], [place], [address], [place]. tel:[phone] Referring Provider: Bryant stoddard, [facility] [address], [place], [place], [facility]. tel:[phone] [facility], [address], [place], [place], [address], [place] tel:[phone] [facility] No Information 8201 0 Monet Bryant. [address] [facility] [address], [place], [address], [place]. tel:[phone] Referring Provider: Bryant stoddard, [address] [facility] [address], [place], [facility]. tel:[phone] [facility], [address], [place], [place], [address], [place] tel:[phone] [facility] No Information Feb-0 1-201 0 Krishnasamy Bryant. [address] [facility] [address], [place], [address], [place]. tel:[phone] Referring Provider: Bryant stoddard, [facility] [address], [place], [place], [facility]. tel:[phone] [facility], [address] [place] [address] [address], [place], [place], [address], [place] tel:[phone] [facility] No Information Oct-0 7-200 9 Krishnasamy Bryant. [address] [facility] [address], [place], [facility], [place]. tel:[phone] Office/outpat ient Visit, Est [facility], [address] [place] [address] [address], [place], [place], [address], [place] tel:[phone] [facility] No Information Ha-0 3-200 9 Krishnasamy Bryant. [address] [place], [place] [address]ate [facility] [address], [place], [facility], [place]. tel:[phone] [facility], [address] [place] [address] [address], [place], [place], [address], [place] tel:[phone] [facility] No Information October-1 3-200 9 Krishnasamy Bryant. [address] [place], [place] [address]ate [facility] [address], [place], [facility], [place]. tel:[phone] [facility], [address] [place] [address] [address], [place], [place], [address], [place] tel:[phone] [facility] No Information 1 4-200 9 Krishnasamy Bryant. [facility] Corporate [facility] [address], [place], [facility], [place]. tel:[phone] Referring Provider: Bryant stoddard, [address] [place], [place] [address]ate [facility] [address], [place], [facility]. tel:[phone] [facility], [address], [place], [place], [address], [place] tel:[phone] [facility] No Information 2-200 9 Krishnasamy Bryant. [address] [facility], [place], [address], [place]. tel:[phone] Referring Provider: Bryant stoddard, [address] [facility] [address], [place], [address]. tel:[phone] Office/outpat ient Visit, [facility], [address], [place], [place], [address], [place] tel:[phone] [facility] No Information 9-200 8 Krishnasamy Bryant. [address] [facility] [address], [place], [address], [place]. tel:[phone] Office/outpat ient Visit, [facility], [address], [place], [place], [address], [place] tel:[phone] [facility] No Information 0-200 8 Krishnasamy Bryant. [address] [facility] [address], [address], [place]. tel:[phone] Referring Provider: Bryant stoddard, [address] [facility] [facility] [address], [place], [address]. tel:[phone] Office/outpat ient Visit, [facility], [address], [place], [place], [address], [place] tel:[phone] [facility] No Information Aug- 0-200 8 Krishnasamy Bryant. [address] [facility] [address], [place], [address], [place]. tel:[phone] [facility], [address], [place], [place], [address], tel:[phone] [facility] No Information Nov-0 5-200 7 Zeny Rosen. [address] [place], [place], [address], . tel:[phone] Referring Provider: Silas Chang, [address] [place], [address] . tel:[phone] Office/outpat ient Visit, [facility], [address], [place], [place], [address], tel:[phone] [facility] No Information Marcin-0 9-200 7 Zeny Rosen. [address] [place], [place], [address], . tel:[phone] Office/outpat ient Visit, [facility], [address] [place] [address] [address], [place], [place], [address], tel:[phone] [facility] No Information Mar-2 6-200 7 Zeny Rosen. [address] [place], [place], [address], . tel:[phone] Referring Provider: Silas Chang, [address] [place], [address] . tel:[phone] Family History Family Member Type Diagnosis Age At Onset No Information Payers Payer name Insurance type Covered alliance party ID Authoriza tidariel(s) [place] [id number] [facility] [id number] Social History Type Description Quantity Date Captured [...]
--- OUTSIDE RECORDS SUMMARY | 2024-07-10 13:19 | XMS_ITS | Clinical Summary ---
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 Gender Identity Not on file Sexual Orientation Not on file Obstetrics History Last Filed Vital Signs Vital Sign Reading Time Taken Comments Blood Pressure 125/62 08/08/2022 10:21 AM STEAMER GUM CANDY Pulse 73 08/08/2022 10:21 AM STEAMER GUM CANDY Temperature 36.4 ??C (97.6 ??F) 01/19/2021 2:30 PM CD T Respiratory Rate 20 01/19/2021 2:30 PM CDT Oxygen Saturation 99% 01/19/2021 2:30 PM CDT Inhaled Oxygen Concentration - - Weight 64.9 kg (143 lb) 08/08/2022 10:21 AM STEAMER GUM CANDY Height 170.2 cm (5' 7 ) 08/08/2022 10:21 AM STEAMER GUM CANDY Body Mass Index 22.4 08/08/2022 10:21 AM STEAMER GUM CANDY Plan of Treatment Health Maintenance Due Date Last Done Comments Depression Screening 1935 Fall Risk Assessment 1935 Pneumococcal vaccine 65+ (1 of 2 - PCV) 1941 DTaP/Tdap/Td Vaccine (1 - Tdap) 1946 Hepatitis B Screening 1953 Zoster Vaccine (1 of 2) 1985 Well Visit 65+ 2000 Covid-19 Vaccine (3 - season) 2024, 09/09/2020 Influenza Vaccine (#1) 2024 Medical Devices Implanted Type Area Mask Layout Designer Device Identifier Shelf Expiration Date Model / Serial / Lot [employer] 6195-1-001 Cement Bone Simplex Gentamicin High Viscosity 40gm - Sn/A - [id number] Implanted:Qty: 1 on 01/19/2021 by Andreas Hanks MD at [facility] Left: Knee [employer] C1713 10/02/2021 6195-1-001 / N/A / [id number] [employer] 6195-1-001 Cement Bone Simplex Gentamicin High Viscosity 40gm - [id number] Implanted:Qty: 1 on 01/19/2021 by Andreas Hanks MD at [facility] Left: Knee [employer] C1713 10/02/2021 6195-1-001 / / [id number] [employer] [id number] Attune Cruciate Retain Cementless Knee Left 6 Component Femoral - [id number] Implanted:Qty: 1 on 01/19/2021 by Andreas Hanks MD at [facility] Left: Knee [employer] 09/02/2030 [id number] / / [id number] [employer] [id number] Attune 10mm Cruciate Retaining Fix Bearing Knee 6 Insert Tibial - [id number] Implanted:Qty: 1 on 01/19/2021 by Andreas Hanks MD at [facility] Left: Knee [employer] 02/02/2023 [id number] / / [id number] [employer] [id number] Attune S+ Cement Fix Bearing Knee 7 Baseplate Tibial - [id number] Implanted:Qty: 1 on 01/19/2021 by Andreas Hanks MD at [facility] Left: Knee [employer] 11/02/2030 [id number] / / [id number] Insurance [facility] Care Teams Painter Plate Relationship Specialty Start Date End Date Andrew Hart MD [address] [place] [address] PCP - General Family Medicine 11/19/20 Robina Cheema PA [address] [place] [address] Physician Forklift Truck Mechanic Orthopedic Surgery 01/19/21
== END 2024-07-10 12:11 | disposition home or self-care (01) ==
PROVIDERS: PCP Family Medicine Adolescent Medicine; Visit Provider Family Medicine Adolescent Medicine
DX: E87.1 Hypo-osmolality and hyponatremia (principal); N18.32 Chronic kidney disease, stage 3b
CPT/HCPCS: 80048

== ENCOUNTER 2024-07-15 10:41 | Outpatient (CLI) | payer OTHER, SELFPAY ==
--- OUTSIDE RECORDS SUMMARY | 2024-07-15 11:35 | XMS_ITS | Clinical Summary ---
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 Gender Identity Not on file Sexual Orientation Not on file Obstetrics History Last Filed Vital Signs Vital Sign Reading Time Taken Comments Blood Pressure 125/62 08/08/2022 10:21 AM EXTRUDING DEPARTMENT SUPERVISOR Pulse 73 08/08/2022 10:21 AM EXTRUDING DEPARTMENT SUPERVISOR Temperature 36.4 C (97.6 F) 01/19/2021 2:30 PM CDT Respiratory Rate 20 01/19/2021 2:30 PM CDT Oxygen Saturation 99% 01/19/2021 2:30 PM CDT Inhaled Oxygen Concentration - - Weight 64.9 kg (143 lb) 08/08/2022 10:21 AM EXTRUDING DEPARTMENT SUPERVISOR Height 170.2 cm (5' 7 ) 08/08/2022 10:21 AM EXTRUDING DEPARTMENT SUPERVISOR Body Mass Index 22.4 08/08/2022 10:21 AM EXTRUDING DEPARTMENT SUPERVISOR Plan of Treatment Health Maintenance Due Date Last Done Comments Depression Screening 1935 Fall Risk Assessment 1935 Pneumococcal vaccine 65+ (1 of 2 - PCV) 1941 DTaP/Tdap/Td Vaccine (1 - Tdap) 1946 Hepatitis B Screening 1953 Zoster Vaccine (1 of 2) 1985 Well Visit 65+ 2000 Covid-19 Vaccine (3 - season) 2024, 09/09/2020 Influenza Vaccine (#1) 2024 Medical Devices Implanted Type Area Lawn Technician Device Identifier Shelf Expiration Date Model / Serial / Lot [employer] 6195-1-001 Cement Bone Simplex Gentamicin High Viscosity 40gm - Sn/A - [id number] Implanted:Qty: 1 on 01/19/2021 by Andreas Hanks MD at [facility] Left: Knee [employer] C1713 10/02/2021 6195-1-001 / N/A / [id number] [employer] 6195-1-001 Cement Bone Simplex Gentamicin High Viscosity 40gm - [id number] Implanted:Qty: 1 on 01/19/2021 by Andreas Hanks MD at [facility] Left: Knee [employer] C1713 10/02/2021 6195-1-001 / / [id number] [employer] [id number] Attune Cruciate Retain Cementless Knee Left 6 Component Femoral - [id number] Implanted:Qty: 1 on 01/19/2021 by Andreas Hanks MD at [facility] Left: Knee [employer] 09/02/2030 [id number] / / [id number] [employer] [id number] Attune 10mm Cruciate Retaining Fix Bearing Knee 6 Insert Tibial - [id number] Implanted:Qty: 1 on 01/19/2021 by Andreas Hanks MD at [facility] Left: Knee [employer] 02/02/2023 [id number] / / [id number] [employer] [id number] Attune S+ Cement Fix Bearing Knee 7 Baseplate Tibial - [id number] Implanted:Qty: 1 on 01/19/2021 by Andreas Hanks MD at [facility] Left: Knee [employer] 11/02/2030 [id number] / / [id number] Insurance [facility] Care Teams Hotel Operation Manager Relationship Specialty Start Date End Date Andrew Hart MD [address] [place] [address] PCP - General Family Medicine 11/19/20 Robina Cheema PA [address] [place] [address] Physician Catheter Finisher And Inspector Orthopedic Surgery 01/19/21
--- OUTSIDE RECORDS SUMMARY | 2024-07-15 11:35 | XMS_ITS | Referral Summary ---
Author Organization [facility] [address] Address [address] [place] [address] Care Team Providers Care Engine Pilot Name Role Phone Andrew Hart MD Primary Care Prov ider Deni Kim PA Unavailable [phone] Allergies No known active allergies Medications levothyroxine [...] (01/01/2021): Added automatically from request for surgery [id number] Immunizations Name Administration Dates Next Due Pfizer [...] on file Legal Sex Male 2:31 AM CORN DETASSELER Gender Identity Not on file Sexual Orientation Not on file Last Filed Vital Signs Vital Sign Reading Time Taken Comments Blood Pressure 125/62 08/08/2022 10:21 AM CORN DETASSELER Pulse 73 08/08/2022 10:21 AM CORN DETASSELER Temperature 36.4 C (97.6 F) 01/19/2021 2:30 PM CDT Respiratory Rate 20 01/19/2021 2:30 PM CDT Oxygen Saturation 99% 01/19/2021 2:30 PM CDT Inhaled Oxygen Concentration - - Weight 64.9 kg (143 lb) 08/08/2022 10:21 AM CORN DETASSELER Height 170.2 cm (5' 7 ) 08/08/2022 10:21 AM CORN DETASSELER Body Mass Index 22.4 08/08/2022 10:21 AM CORN DETASSELER Plan of Treatment Not on file Medical Devices Implanted Type Area Nursing Support Worker Device Identifier Shelf Expiration Date Model / Serial / Lot [employer] 6195-1-001 Cement Bone Simplex Gentamicin High Viscosity 40gm - Sn/A - [id number] Implanted:Qty: 1 on 01/19/2021 by Andreas Hanks MD at [facility] Left: Knee [employer] C1713 10/02/2021 6195-1-001 / N/A / [id number] [employer] 6195-1-001 Cement Bone Simplex Gentamicin High Viscosity 40gm - [id number] Implanted:Qty: 1 on 01/19/2021 by Andreas Hanks MD at [facility] Left: Knee [employer] C1713 10/02/2021 6195-1-001 / / [id number] [employer] [id number] Attune Cruciate Retain Cementless Knee Left 6 Component Femoral - [id number] Implanted:Qty: 1 on 01/19/2021 by Andreas Hanks MD at [facility] Left: Knee [employer] 09/02/2030 [id number] / / [id number] [employer] [id number] Attune 10mm Cruciate Retaining Fix Bearing Knee 6 Insert Tibial - [id number] Implanted:Qty: 1 on 01/19/2021 by Andreas Hanks MD at [facility] Left: Knee [employer] 02/02/2023 [id number] / / [id number] [employer] [id number] Attune S+ Cement Fix Bearing Knee 7 Baseplate Tibial - [id number] Implanted:Qty: 1 on 01/19/2021 by Andreas Hanks MD at [facility] Left: Knee [employer] 11/02/2030 [id number] / / [id number] Insurance [facility] Care Teams Engine Pilot Relationship Specialty Start Date End Date Andrew Hart MD [address] [place] [address] PCP - General Family Medicine 11/19/20 Robina Cheema PA [address] [place] [address] Physician Clothes Ironer Orthopedic Surgery 01/19/21
--- OUTSIDE RECORDS SUMMARY | 2024-07-15 11:35 | XMS_ITS | Continuity of Care Document ---
Author Organization [facility] Address [address] [place] [address] Phone Care Team Providers Care Marine Driller Name Role Phone Rose Reyna Unavailable Unavailable [...] Providers Copied on Encounter Office/outpat ient Visit, [facility], [address], [place], [place], [address], [place] tel:[phone] [facility] No Information 6201 0 Reyna Rose. [address], [place], [address], [place]. tel:[phone] Office/outpat ient Visit, [facility], [address], [place], [place], [address], [place] tel:[phone] [facility] No Information 9201 0 Monet Sanchezl. [address] [facility] [address], [place], [address], [place]. tel:[phone] Referring Provider: Bryant stoddard, [facility] [address], [place], [place], [facility]. tel:[phone] [facility], [address], [place], [place], [address], [place] tel:[phone] [facility] No Information 8201 0 Monet Bryant. [address] [facility] [address], [place], [address], [place]. tel:[phone] Referring Provider: Bryant stoddard, [address] [facility] [address], [place], [place], [facility]. tel:[phone] [facility], [address], [place], [place], [address], [place] tel:[phone] [facility] No Information Feb-0 1-201 0 Krishnasamy Bryant. [address] [facility] [address], [place], [address], [place]. tel:[phone] Referring Provider: Bryant stoddard, [facility] [address], [place], [place], [facility]. tel:[phone] [facility], [address] [place] [address] [address], [place], [place], [address], [place] tel:[phone] [facility] No Information Oct-0 7-200 9 Krishnasamy Bryant. [address] [facility] [address], [place], [facility], [place]. tel:[phone] Office/outpat ient Visit, [facility], [address] [place] [address] [address], [place], [place], [address], [place] tel:[phone] [facility] No Information Ha-0 3-200 9 Krishnasamy Bryant. [address] [place], [place] [address]ate [facility] [address], [place], [place], [facility], [place]. tel:[phone] [facility], [address] [place] [address] [address], [place], [place], [address], [place] tel:[phone] [facility] No Information October-1 3-200 9 Krishnasamy Bryant. [address] [place], [place] [address]ate [facility] [address], [place], [facility], [place]. tel:[phone] [facility], [address] [place] [address] [address], [place], [place], [address], [place] tel:[phone] [facility] No Information 1 4-200 9 Krishnasamy Bryant. [facility] [address], [place], [facility], [place]. tel:[phone] Referring Provider: Bryant stoddard, [address] [place], [place] [address]ate [facility] [address], [place], [place], [facility]. tel:[phone] [facility], [address], [place], [place], [address], [place] tel:[phone] [facility] No Information 2-200 9 Krishnasamy Bryant. [address] [facility] [address], [place], [address], [place]. tel:[phone] Referring Provider: Bryant stoddard, [address] [facility] [address], [place], [address]. tel:[phone] Office/outpat ient Visit, [facility], [address], [place], [place], [address], [place] tel:[phone] [facility] No Information 9-200 8 Krishnasamy Bryant. [address] [facility] [address], [place], [address], [place]. tel:[phone] Office/outpat ient Visit, [facility], [address], [place], [place], [address], [place] tel:[phone] [facility] No Information 0-200 8 Krishnasamy Bryant. [address] [facility] [address], [place], [address], [place]. tel:[phone] Referring Provider: Bryant stoddard, [address] [facility] [address], [place], [address]. tel:[phone] Office/outpat ient Visit, [facility], [address], [place], [place], [address], [place] tel:[phone] [facility] No Information Aug- 0-200 8 Krishnasamy Bryant. [address] [facility] [address], [place], [address], [place]. tel:[phone] [facility], [address], [place], [place], [address], tel:[phone] [facility] No Information Nov-0 5-200 7 Zeny Rosen. [address] [place], [place], [address], . tel:[phone] Referring Provider: Silas Chang, [address] [place], [address] . tel:[phone] Office/outpat ient Visit, [facility], [address] [facility] [address], [place], [place], [address], tel:[phone] [facility] No Information Marcin-0 9-200 7 Zeny Rosen. [address] [place], [place], [address], . tel:[phone] Office/outpat ient Visit, [facility], [address] [place] [address] [address], [place], [place], [address], tel:[phone] [facility] No Information Mar-2 6-200 7 Zeny Rosen. [address] [place], [place], [address], . tel:[phone] Referring Provider: Silas Chang, [address] [place], [address] . tel:[phone] Family History Family Member Type Diagnosis Age At Onset No Information Payers Payer name Insurance type Covered alliance party ID Authoriza tidariel(s) Medicare [place] [id number] [facility] [id number] Social History Type Description Quantity Date Captured [...]
--- NOTE | 2024-07-30 16:31 | WPDHOLTEREM ---
Holter/Event Monitor Holter/Event Monitor Date of procedure: 07/15/24 Holter/Event Procedure: 3-7 Day Holter Monitor Indications: Syncope Conclusion: 1. 5 days holter monitor on 07/15/24. 2. Underlying rhythm is sinus rhythm. HR range 59-153 bpm; average HR 82 bpm. HR at 153 bpm was on 07/16/24 at 8:59 am. 3. There are occasional premature supraventricular complexes, rare supraventricular couplets, rare supraventricular triplets. No supraventricular tachycardia. 4. There are rare premature ventricular complexes. No ventricular tachycardia. 5. No significant pauses greater than 3 seconds. 6. No symptoms available for correlation.
== END 2024-07-15 10:42 | disposition home or self-care (01) ==
LOC: ANHCARD 10:43
PROVIDERS: PCP Family Medicine Adolescent Medicine; Visit Provider Family Medicine Adolescent Medicine
DX: I49.1 Atrial premature depolarization (principal); I49.3 Ventricular premature depolarization; R55 Syncope and collapse
CPT/HCPCS: 93242

== ENCOUNTER 2024-10-17 06:45 | Outpatient (CLI) | payer OTHER, SELFPAY ==
--- NOTE | ~2024-10-17 | CT_ITS ---
CT ANGIOGRAM NECK History: Bilateral carotid stenosis. Technique: Serial spiral axial images through the neck were obtained during arterial phase IV injecti on of 100 cc of Omnipaque 350. 3-D postprocessing and MIP images were then reconstructed on the [employer] workstation. Dose reduction technique was used on this scan by utilizing automated exposure control and iterative reconstruction technique. The dose-length product (DLP) was 572.26 mGy-cm. Findings: There is occlusion of the proximal portions the bilateral vertebral arteries. Left vertebr al artery is reconstituted at the C7 level. Right vertebral artery is reconstituted at the C5 level. Bilateral common carotid, internal carotid, and external carotid arteries are patent. There is mixed calcified and soft plaque at the proximal left internal carotid artery, with severe, 95% stenosis. Th ere is large calcified plaque at the right carotid bifurcation and proximal right internal carotid ar shakir, with high-grade stenosis of 80% The proximal right internal carotid artery demonstrates 80% niels nosis relative to the normal distal artery lumen diameter. The proximal left internal carotid artery demonstrates 95% stenosis relative to the normal distal artery lumen diameter. Impression: High-grade, 95% stenosis, at the proximal left internal carotid artery. High-grade, 80% stenosis at the proximal right internal carotid artery. 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 Reviewed, dictated and finalized at location . Impression: High-grade, 95% stenosis, at the proximal left internal carotid artery. High-grade, 80% stenosis at the proximal right internal carotid artery. 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
--- OUTSIDE RECORDS SUMMARY | 2024-10-17 06:49 | XMS_ITS | Referral Summary ---
Author Organization [facility] [address] Address [address] [place] [address] Care Team Providers Care Boiler Mechanic Name Role Phone Andrew Hart MD Primary Care Prov ider DeniRobina janeKim PA Unavailable Encounters Date Type Department Care Team Description 10/09/2024 Telephone [facility] Vascular and Vein Surgery [address] [place] [address] [place] [address] Aleksandr Muñoz MD 10/09/2024 Orders Only [facility] and Vein Surgery [address] [place] [address] [address] [place] [address] Aleksandr Muñoz MD Carotid stenosis, bilateral (Primary Dx) 10/09/2024 9:30 AM CDT Office Visit [facility] Vascular at [address] [place] [address] Tonya Levin NP Carotid stenosis, bilateral (Primary Dx); Primary hypertension 10/03/2024 Telephone [facility] Vascular and Vein Surgery [address] [place] [address] [address] [place] [address] Arina Granados from Last 3 Months Allergies No known active allergies Medications memantine (NAMENDA) 10 mg tablet 11/19/19 21 Active quinapriL (ACCUPRIL) 40 mg tablet 10/13/19 21 Active senna-docusate (PERICOLACE) 8.6-50 mg 1-2 times daily as needed for constipation 60 tablet 1 01/20/20 21 Active HYDROcodone-ac etaminophen (NORCO) 5-325 mg per tabletIndicati ons:Pain Take 1-2 tablets every 4-6 hours as needed for pain 63 tablet 01/20/20 21 Active Additional Information Patient not taking.Reported on 10/09/[address] (PROTONIX) 40 mg EC tablet Take 40 mg by mouth 2 (two) times a day 02/24/20 21 Active latanoprost (XALATAN) 0.005 % ophthalmic solution 1 drop nightly 07/21/19 23 Active lisinopriL (PRINIVIL,ZEST RIL) 20 mg tablet Take 20 mg by mouth daily 06/02/20 22 Active mirtazapine (REMERON) 15 mg tablet Take 15 mg by mouth nightly at bedtime 06/12/19 23 Active sulfamethoxazo le-trimethopri m (BACTRIM DS) 800-160 mg per tablet Take 1 tablet by mouth 2 (two) times a day 05/31/20 22 Active tamsulosin (FLOMAX) 0.4 mg extended release capsule Take 1 capsule (0.4 mg total) by mouth 2 (two) times a day 04/30/20 22 Active timolol (TIMOPTIC) 0.5 % ophthalmic solution INSTILL 1 DROP INTO BOTH EYES IN THE MORNING DIRECTED 07/21/19 23 Active finasteride (PROSCAR) 5 mg tablet Take 1 tablet (5 mg total) by mouth daily 08/20/19 25 Active levothyroxine (SYNTHROID) 100 mcg tablet Take 1 tablet (100 mcg total) by mouth daily 07/17/19 25 Active aspirin 81 mg enteric coated tablet Take 1 tablet (81 mg total) by mouth daily Active levothyroxine (SYNTHROID) 112 mcg tablet 10/27/19 025 Discontinued Active Problems Problem Noted Date Diagnosed Date Carotid stenosis, bilateral 10/11/2024 Assessment & Plan (10/11/2024 10:00 AM CDT): Impression: incidental finding of high-grade stenosis in bilateral carotid arteries found on carotid duplex scan performed at an outside facility however carotid duplex scan was performed in June 2024. Plan: Recommend updated carotid duplex scan as well as a CTA head and neck for further evaluation of carotid arteries. Patient would like CTA performed closer to home. Recommended patient to obtain a copy of his CTA head and neck and bring with him the day of his follow up for vascular to review images. He and his son voices understanding. - We will have patient follow-up in 2 weeks after undergoing noninvasive studies to review results. - Recommend aspirin and statin therapy which can be initiated by his PCP. Primary hypertension 10/11/2024 Assessment & Plan (10/11/2024 9:57 AM CDT): Impression: Chronic and stable. 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 Gender Identity Not on file Sexual Orientation Not on file Last Filed Vital Signs Vital Sign Reading Time Taken Comments Blood Pressure 160/88 10/09/2024 9:54 AM CDT Pulse 68 10/09/2024 9:54 AM CDT Temperature 36.4 C (97.6 F) 01/19/2021 2:30 PM CDT Respiratory Rate 20 01/19/2021 2:30 PM CDT Oxygen Saturation 98% 10/09/2024 9:54 AM CDT Inhaled Oxygen Concentration - - Weight 63 kg (139 lb) 10/09/2024 9:54 AM CDT Height 170.2 cm (5' 7 ) 10/09/2024 9:54 AM CDT Body Mass Index 21.77 10/09/2024 9:54 AM CDT Plan of Treatment Not on file Medical Devices Implanted Type Area Corporate Account Executive Device Identifier Shelf Expiration Date Model / Serial / Lot [employer] 6195-1-001 Cement Bone Simplex Gentamicin High Viscosity 40gm - Sn/A - [id number] Implanted:Qty: 1 on 01/19/2021 by Andreas Hanks MD at [facility] Left: Knee [employer] C1713 10/02/2021 6195-1-001 / N/A / [id number] [employer] 6195-1-001 Cement Bone Simplex Gentamicin High Viscosity 40gm - [id number] Implanted:Qty: 1 on 01/19/2021 by Andreas Hanks MD at [facility] Left: Knee [employer] C1713 10/02/2021 6195-1-001 / / [id number] [employer] [id number] Attune Cruciate Retain Cementless Knee Left 6 Component Femoral - [id number] Implanted:Qty: 1 on 01/19/2021 by Andreas Hanks MD at [facility] Left: Knee [employer] 09/02/2030 [id number] / / [id number] [employer] [id number] Attune 10mm Cruciate Retaining Fix Bearing Knee 6 Insert Tibial - [id number] Implanted:Qty: 1 on 01/19/2021 by Andreas Hanks MD at [facility] Left: Knee [employer] 02/02/2023 [id number] / / [id number] [employer] [id number] Attune S+ Cement Fix Bearing Knee 7 Baseplate Tibial - [id number] Implanted:Qty: 1 on 01/19/2021 by Andreas Hanks MD at [facility] Left: Knee [employer] 11/02/2030 [id number] / / [id number] Insurance [facility] Member Subscriber Plan / Payer (Ef fective 2013-Present) Name:ERICK WANG Relation to Subscriber:Self Name:Erick Wang Payer ID:[id number] (NAIC) Type:MEDICARE RISK OTHER Address: [address] [facility] [facility] Advance Directives For more information, please contact: [phone] Documents on File Type Date Recorded Patient Entertainment Agent Expl anation ADVANCE DIRECTIVE 10/10/2024 2:44 PM LEBRON boss Will.pdf Power of Seaming Inspector 10/10/2024 2:43 PM Broderick Sergei Dowling ower Of Seaming Inspector.pdf ADVANCE DIRECTIVE 10/10/2024 2:43 PM LEBRON boss Will.pdf Power of Seaming Inspector 10/10/2024 2:43 PM LEBRON [place] POA.pdf Healthcare Agents on File Name Relationship Healthcare Agent Relationshi p Communication Broderick Bee Health Care Agent [email or web address] Care Teams Boiler Mechanic Relationship Specialty Start Date End Date Andrew Hart MD [address] [place] [address] PCP - General Family Medicine 11/19/20 Robina Cheema PA [address] [place] [address] Physician Dialysis Patient Care Technician Orthopedic Surgery 01/19/21
--- OUTSIDE RECORDS SUMMARY | 2024-10-17 06:49 | XMS_ITS | Clinical Summary ---
Author Organization [facility] [address] Address [address] [place] [address] Care Team Providers Care Supervisor Screen Printing Name Role Phone Andrew Hart MD Primary Care Prov ider Robina CheemaKim PA Unavailable [phone] Allergies No known active allergies Medications memantine [...] Active levothyroxine (SYNTHROID) 112 mcg tablet 10/27/19 21 025 Discontinued Active Problems Problem Noted Date [...] quinapril History of total knee arthroplasty, left 021 Primary osteoarthritis of left knee 01/01/2021 Overview (01/01/2021): Added automatically from request for surgery [id number] Encounters Date Type Department Care Team Description 10/09/2024 9:30 AM CDT Office Visit [facility] Vascular at [address] [place] [address] Tonya Levin NP Carotid stenosis, bilateral (Primary Dx); Primary hypertension 10/09/2024 Telephone [facility] Vascular and Vein Surgery [address] [facility] [address] [place] [address] Aleksandr Muñoz MD 10/09/2024 Orders Only [facility] Vascular and Vein Surgery [address] [facility] [address] [place] [address] Aleksandr Muñoz MD Carotid stenosis, bilateral (Primary Dx) 10/03/2024 Telephone [facility] Vascular and Vein Surgery [address] [place] [address] [address] [place] [address] Arina Granados from Last 3 Months Immunizations Immunization Administration Dates Next Due Pfizer [...] on file 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 Gender Identity Not on file Sexual Orientation [...] 10/09/2024 9:54 AM CDT Plan of Treatment Health Maintenance Due Date Last Done Comments Depression Screening 1935 Fall Risk Assessment 1935 DTaP/Tdap/Td Vaccine (1 - Tdap) 1946 Hepatitis B Screening 1953 Pneumococcal vaccine 65+ (1 of 2 - PCV) 1954 Zoster Vaccine (1 of 2) 1985 Well Visit 65+ 2000 Covid-19 Vaccine ( - season) 2024, 09/09/2020 Influenza Vaccine (Season Ended) 2025 Medical Devices Implanted Type Area Staff Genetic Counselor Device Identifier Shelf Expiration Date Model / Serial / Lot [employer] 6195-1-001 Cement Bone Simplex Gentamicin High Viscosity 40gm - Sn/A - [id number] Implanted:Qty: 1 on 01/19/2021 by Andreas Hanks MD at [facility] Left: Knee [employer] C1713 10/02/2021 6195-1-001 / N/A / [id number] [employer] 6195-1-001 Cement Bone Simplex Gentamicin High Viscosity 40gm - [id number] Implanted:Qty: 1 on 01/19/2021 by Andreas Hanks MD at [facility] Left: Knee [employer] C1713 10/02/2021 6195-1-001 / / [id number] [employer] [id number] Attune Cruciate Retain Cementless Knee Left 6 Component Femoral - [id number] Implanted:Qty: 1 on 01/19/2021 by Andreas Hanks MD at [facility] Left: Knee [employer] 09/02/2030 [id number] / / [id number] [employer] [id number] Attune 10mm Cruciate Retaining Fix Bearing Knee 6 Insert Tibial - [id number] Implanted:Qty: 1 on 01/19/2021 by Andreas Hanks MD at [facility] Left: Knee [employer] 02/02/2023 [id number] / / [id number] [employer] [id number] Attune S+ Cement Fix Bearing Knee 7 Baseplate Tibial - [id number] Implanted:Qty: 1 on 01/19/2021 by Andreas Hanks MD at [facility] Left: Knee [employer] 11/02/2030 [id number] / / [id number] Insurance Advance Directives For more information, please contact: [phone] Documents on File Type Date Recorded Patient Turbo Electric Operator Expl anation ADVANCE DIRECTIVE 10/10/2024 2:44 PM LEBRON [place].pdf Power of Assistant Elementary Teacher 10/10/2024 2:43 PM Broderick Dowling ower Of Assistant Elementary Teacher.pdf ADVANCE DIRECTIVE 10/10/2024 2:43 PM LEBRON boss Will.pdf Power of Assistant Elementary Teacher 10/10/2024 2:43 PM LEBRON RODRÍGUEZ.pdf Healthcare Agents on File Name Relationship Healthcare Agent Relationstn p Communication Broderick Bee Health Care Agent Care Teams Supervisor Screen Printing Relationship Specialty Start Date End Date Andrew Hart MD [address] [place] [address] PCP - General Family Medicine 11/19/20 Robina Cheema PA [address] [place] [address] Physician Yardage Caller Orthopedic Surgery 01/19/21
--- OUTSIDE RECORDS SUMMARY | 2024-10-17 06:49 | XMS_ITS | Continuity of Care Document ---
Author Organization [facility] Address [address] [place] [address] Phone Care Team Providers Care Log Haul Chain Feeder Name Role Phone Rose Reyna Unavailable Unavailable [...] Providers Copied on Encounter Office/outpat ient Visit, [facility], [address], [place], [place], [id number], [place] tel:[phone] [facility] No Information 6201 0 Reyna Rose. [address], [place], [address], [place]. tel:[phone] Office/outpat ient Visit, [facility], [address], [place], [place], [address], [place] tel:[phone] [facility] No Information 9201 0 Monet Sanchezl. [address] [facility] [address], [place], [address], [place]. tel:[phone] Referring Provider: Bryant stoddard, [facility] [address], [place], [place], [facility]. tel:[phone] [facility], [address], [place], [place], [address], [place] tel:[phone] [facility] No Information 8201 0 Monet Bryant. [address] [facility] [address], [place], [address], [place]. tel:[phone] Referring Provider: Bryant stoddard, [address], [place], [place], [facility]. tel:[phone] [facility], [address], [place], [place], [address], [place] tel:[phone] [facility] No Information Feb-0 1-201 0 Krishnasamy Bryant. [address] [facility] [address], [place], [address], [place]. tel:[phone] Referring Provider: Bryant stoddard, [facility] [address], [place], [place], [facility]. tel:[phone] [facility], [address] [place] [address] [address], [place], [place], [address], [place] tel:[phone] [facility] No Information Oct-0 7-200 9 Krishnasamy Bryant. [address] [facility] [address] [facility] [address], [place], [facility], [place]. tel:[phone] Office/outpat ient Visit, [facility], [address] [place] [address] [address], [place], [place], [address], [place] tel:[phone] [facility] No Information Ha-0 3-200 9 Krishnasamy Bryant. [address] [place], [place] [address]ate [facility] [address], [place], [facility], [place]. tel:[phone] [facility], [address] [place] [address] [address], [place], [place], [address], [place] tel:[phone] [facility] No Information October-1 3-200 9 Krishnasamy Bryant. [address] [place], [place] [address]ate [facility] [address], [place], [facility], [place]. tel:[phone] [facility], [address] [place] [address] [address], [place], [place], [address], [place] tel:[phone] [facility] No Information 1 4-200 9 Krishnasamy Bryant. [facility] [address], [place], [facility], [place]. tel:[phone] Referring Provider: Bryant stoddard, [address] [place], [place] [address]ate [facility] [address], [place], [facility]. tel:[phone] [facility], [address], [place], [place], [address], [place] tel:[phone] [facility] No Information 2-200 9 Krishnasamy Bryant. [address] [facility] [address], [place], [address], [place]. tel:[phone] Referring Provider: Bryant stoddard, [address] [facility] [address], [place], [address]. tel:[phone] Office/outpat ient Visit, [facility], [address], [place], [place], [address], [place] tel:[phone] [facility] No Information 9-200 8 Krishnasamy Bryant. [address] [facility] [address] [facility] [address], [place], [address], [place]. tel:[phone] Office/outpat ient Visit, [facility], [address], [place], [place], [address], [place] tel:[phone] [facility] No Information 0-200 8 Krishnasamy Bryant. [address] [facility] [address] [facility] [address], [place], [address], [place]. tel:[phone] Referring Provider: Bryant stoddard, [address] [facility] [address], [place], [address]. tel:[phone] Office/outpat ient Visit, [facility], [address], [place], [place], [address], [place] tel:[phone] [facility] No Information Aug- 0-200 8 Krishnasamy Bryant. [address] [facility] [address] [address], [place], [address], [place]. tel:[phone] [facility], [address], [place], [place], [address], tel:[phone] [facility] No Information Nov-0 5-200 7 Zeny Rosen. [address] [place], [place], [address], . tel:[phone] Referring Provider: Silas Chang, [address] [place], [address] . tel:[phone] Office/outpat ient Visit, [place] [facility], [address], [place], [place], [address], tel:[phone] [facility] No Information Marcin-0 9-200 7 Zeny Rosen. [address] [place], [place], [address], . tel:[phone] Office/outpat ient Visit, [facility], [address] [place] [address] [address], [place], [place], [address], tel:[phone] [facility] No Information Mar-2 6-200 7 Zeny Rosen. [address] [place], [place], [address], . tel:[phone] Referring Provider: Silas Chang, [address] [place], [address] . tel:[phone] Family History Family Member Type Diagnosis Age At Onset No Information Payers Payer name Insurance type Covered constitution party ID Authoriza tidariel(s) [place] [id number] [facility] [id number] Social History Type Description Quantity Date Captured [...]
[2024-10-17 07:15] LABS: Estimated Glomerular Filt Rate 44
== END 2024-10-17 06:46 | disposition home or self-care (01) ==
PROVIDERS: PCP Family Medicine Adolescent Medicine
DX: I65.23 Occlusion and stenosis of bilateral carotid arteries (principal); I65.03 Occlusion and stenosis of bilateral vertebral arteries
CPT/HCPCS: 70498; Q9967

== ENCOUNTER 2024-11-18 07:40 | Outpatient (CLI) | payer OTHER, SELFPAY ==
--- NOTE | 2024-11-18 | EST_ITS ---
Patient Info Name: Blade Mai Age: 89 years : 1935 Gender: Male Ht: 67 in Wt: 138 lbs BSA: 1.72 m2 HR: 60 bpm BP: 173 / 79 mmHg Exam Date: 11/18/2024 8:26 AM Patient Status: O Admit Date: 11/18/2024 Exam Type: CA stress emilee w NM A regadenoson stress test was performed. Staff Referring Physician: Rad Olivarez MD Attending Provider: Rad Olivarez MD Nurse: Linda Tay Exercise Technologist: Erica Bruner Summary 1. No abnormal ST-T wave changes with lexiscan. 2. Please correlate with nuclear medicine images, reported separately. Protocol: Lexiscan Stress ECG Details Stage: REST Duration (min): 1 min : 30 sec HR (bpm): 61 SBP (mmHg): 173 DBP (mmHg): 79 Stage: REST Duration (min): 6 min : 20 sec HR (bpm): 62 SBP (mmHg): 173 DBP (mmHg): 79 Stage: STAGE 1 Duration (min): 1 min : 0 sec HR (bpm): 78 SBP (mmHg): 147 DBP (mmHg): 66 Stage: RECOVERY Duration (min): 1 min : 0 sec HR (bpm): 83 SBP (mmHg): 147 DBP (mmHg): 66 Stage: RECOVERY Duration (min): 2 min : 0 sec HR (bpm): 81 SBP (mmHg): 147 DBP (mmHg): 66 Stage: RECOVERY Duration (min): 3 min : 0 sec HR (bpm): 83 SBP (mmHg): 124 DBP (mmHg): 61 Stage: RECOVERY Duration (min): 3 min : 32 sec HR (bpm): 78 SBP (mmHg): 124 DBP (mmHg): 61 Rest HR: 62 bpm Peak HR: 91 bpm Rest Sys BP: 173 mmHg Peak Sys BP: 147 mmHg Max Pred HR: 131 bpm % Max Pred HR: 69 % Target HR: 111 bpm Max RPP: 13,377 bpm*mmHg Total Time: 1 min : 0 sec Rest Burns BP: 79 mmHg Peak Burns BP: 66 mmHg Total Dose: 0.4 mg Resting ECG Sinus bradycardia with a ventricular rate of 58bpm. Right bundle branch block. Left anterior fascicular block. No ischemic ST T wave changes. Stress ECG No ischemic ST T wave changes. Arrhythmias No arrhythmias. Report Signatures
--- NOTE | ~2024-11-18 | NM_ITS ---
EXAMINATION: NM emilee stress w perfusion DATE: 11/18/2024 09:47 INDICATION: Carotid stenosis and primary hypertension. Preoperative cardiac exam. TECHNIQUE: Rest images were obtained following intravenous administration of 10.46 mCi Tc99m tetrofos min (Myoview). The patient was infused intravenously with Lexiscan (Regadenoson). Then, the 3.5 mCi T c99m tetrofosmin (Myoview) was administered intravenously, and stress images were obtained. Data was reconstructed into short axis and horizontal and vertical long axis SPECT images. Gated SPECT images were also obtained. COMPARISON: None. FINDINGS: Small mild nonreversible infarct at the apical lateral segments with mild reversible ischem ia at the apex and equivocally extending into the adjacent apical septal and apical inferior segments . There is normal left ventricular chamber size, wall motion and ejection fraction. Left ventricula r ejection fraction measures >70%. IMPRESSION: 1. 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 2. Left ventricular ejection fraction measuring 69%. Reviewed, dictated and finalized at location A. IMPRESSION: 1. 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 2. Left ventricular ejection fraction measuring 69%.
--- OUTSIDE RECORDS SUMMARY | 2024-11-18 07:45 | XMS_ITS | Continuity of Care Document ---
Author Organization [facility] Address [address] [place] [address] Phone Care Team Providers Care Long Filler Cigar Roller Machine Name Role Phone Rose Reyna Unavailable [...] Providers Copied on Encounter Office/[place]pat [place], [facility] [place] [address], [place], [place], [id number], [place] tel:[phone] [facility] No Information 6201 0 Reyna Rose. [address], [place], [address], [place]. tel:[phone] Office/outpat ient Visit, [facility] [place] [address], [place], [place], [id number], [place] tel:[phone] [facility] No Information 9201 0 Monet Sanchezl. [address] [facility] [address], [place], [address], [place]. tel:[phone] Referring Provider: Bryant stoddard, [facility] [address], [place], [place], [facility]. tel:[phone] [facility], [address], [place], [place], [id number], [place] tel:[phone] [facility] No Information 8201 0 Monet Bryant. [address] [facility] [address], [place], [address], [place]. tel:[phone] Referring Provider: Bryant stoddard, [address] [facility], [place], [place], [facility]. tel:[phone] [facility], [address], [place], [place], [id number], [place] tel:[phone] [facility] No Information Feb-0 1-201 0 Krishnasamy Bryant. [address] [facility] [address], [place], [address], [place]. tel:[phone] Referring Provider: Bryant stoddard, [facility] [address], [place], [place], [facility]. tel:[phone] [facility], [address] [place] [address] [address], [place], [place], [address], [place] tel:[phone] [facility] No Information Oct-0 7-200 9 Krishnasamy Bryant. [address] [facility] [address], [place], [facility], [place]. tel:[phone] Office/outpat ient Visit, [facility], [address] [place] [address] [address], [place], [place], [address], [place] tel:[phone] [facility] No Information Ha-0 3-200 9 Krishnasamy Bryant. [address] [place], [place] [address] [address], [place], [place], [facility], [place]. tel:[phone] [facility], [address] [place] [address] [address], [place], [place], [address], [place] tel:[phone] [facility] No Information October-1 3-200 9 Krishnasamy Bryant. [address] [place], [place] [address] [address], [place], [facility], [place]. tel:[phone] [facility], [address] [place] [address] [address], [place], [place], [address], [place] tel:[phone] [facility] No Information 1 4-200 9 Krishnasamy Bryant. [facility] [address], [place], [facility], [place]. tel:[phone] Referring Provider: Bryant stoddard, [address] [place], [place] [address] [address], [place], [place], [facility]. tel:[phone] [facility], [address], [place], [place], [address], [place] tel:[phone] [facility] No Information 2-200 9 Krishnasamy Bryant. [address] [facility] [address], [place], [address], [place]. tel:[phone] Referring Provider: Bryant stoddard, [address] [facility] [address], [place], [address]. tel:[phone] Office/outpat ient Visit, [facility], [address], [place], [place], [address], [place] tel:[phone] [facility] No Information 9-200 8 Krishnasamy Bryant. [address] [facility] [address], [place], [address], [place]. tel:[phone] Office/outpat ient Visit, [facility], [address], [place], [place], [address], [place] tel:[phone] [facility] No Information 0-200 8 Krishnasamy Bryant. [address] [facility] [address], [place], [address], [place]. tel:[phone] Referring Provider: Bryant stoddard, [address] [facility] [address], [place], [address]. tel:[phone] Office/outpat ient Visit, [facility], [address], [place], [place], [id number], [place] tel:[phone] [facility] No Information Aug- 0-200 8 Krishnasamy Bryant. [address] [facility] [address], [place], [address], [place]. tel:[phone] [facility], [address], [place], [place], [id number], tel:[phone] [facility] No Information Nov-0 5-200 7 Zeny Rosen. [address] [place], [place], [address], . tel:[phone] Referring Provider: Silas Chang, [address] [place], [address] . tel:[phone] Office/outpat ient Visit, [facility] [address], [place], [place], [id number], tel:[phone] [facility] No Information Marcin-0 9-200 7 Zeny Rosen. [address], [place], [address], . tel:[phone] Office/outpat ient Visit, [facility] [address] [place] [address] [address], [place], [place], [address], tel:[phone] [facility] No Information Mar-2 6-200 7 Zeny Rosen. [address], [place], [address], . tel:[phone] Referring Provider: Silas Chang, [address] [place], [address] . tel:[phone] Family History Family Member Type Diagnosis Age At Onset No Information Payers Payer name Insurance type Covered republican ID Authoriza tidariel(s) [place] [id number] [facility] [id number] Social History Type Description Quantity Date Captured [...]
--- OUTSIDE RECORDS SUMMARY | 2024-11-18 07:45 | XMS_ITS | Clinical Summary ---
Author Organization [facility] [address] Address [address] [place] [address] Care Team Providers Care Environmental Manager Name Role Phone Andrew Hart MD Primary Care Prov ider DeniRobina janeKim PA Unavailable [phone] Linus Olivarez MD Unavailable Allergies No known active allergies Medications memantine (NAMENDA) 10 mg tablet Take 1 tablet (10 mg total) by mouth daily 1 Active senna-docusate (PERICOLACE) 8.6-50 mg 1-2 times daily as needed for constipation 60 tablet 1 1 Active Additional Information Patient not taking.Reported on 11/11/2024 HYDROcodone-ac etaminophen (NORCO) 5-325 mg per tabletIndicati ons:Pain Take 1-2 tablets every 4-6 hours as needed for pain 63 tablet 1 Active Additional Information Patient not taking.Reported on 10/24/2024 latanoprost (XALATAN) 0.005 % ophthalmic solution 1 drop nightly 3 Active tamsulosin (FLOMAX) 0.4 mg extended release capsule Take 1 capsule (0.4 mg total) by mouth 2 (two) times a day 2 Active timolol (TIMOPTIC) 0.5 % ophthalmic solution INSTILL 1 DROP INTO BOTH EYES IN THE MORNING DIRECTED 3 Active finasteride (PROSCAR) 5 mg tablet Take 1 tablet (5 mg total) by mouth nightly 5 Active levothyroxine (SYNTHROID) 100 mcg tablet Take 1 tablet (100 mcg total) by mouth daily 5 Active aspirin 81 mg enteric coated tablet Take 1 tablet (81 mg total) by mouth daily Active clopidogreL (PLAVIX) 75 mg tablet Take 1 tablet (75 mg total) by mouth daily 30 tablet 11 5 026 Active amLODIPine (NORVASC) 5 mg tablet Take 1 tablet (5 mg total) by mouth daily 5 Active atorvastatin (LIPITOR) 20 mg tablet Take 1 tablet (20 mg total) by mouth daily 5 Active quinapriL (ACCUPRIL) 40 mg tablet 1 025 Discontin ued(Thera py completed ) pantoprazole DR (PROTONIX) 40 mg EC tablet Take 40 mg by mouth 2 (two) times a day 1 025 Discontin ued(Thera py completed ) lisinopriL (PRINIVIL,ZEST RIL) 20 mg tablet Take 20 mg by mouth daily 2 025 Discontin ued(Thera py completed ) mirtazapine (REMERON) 15 mg tablet Take 15 mg by mouth nightly at bedtime 3 025 Discontin ued(Thera py completed ) sulfamethoxazo le-trimethopri m (BACTRIM DS) 800-160 mg per tablet Take 1 tablet by mouth 2 (two) times a day 2 025 Discontin ued(Thera py completed ) Active Problems Problem Noted Date Diagnosed Date Pre-operative cardiovascular examination 025 History of syncope 10/24/2024 Bifascicular block 10/24/2024 Bilateral carotid artery stenosis 10/24/2024 Mixed hyperlipidemia 10/23/2024 Assessment & Plan (10/23/2024 11:02 AM CDT): Lipid panel pending, will need a statin prior to intervention Carotid stenosis, bilateral 10/11/2024 Assessment & Plan (10/23/2024 11:02 AM CDT): Moderate right ICA stenosis critical high-grade stenosis of the left ICA with a string sign on CTA. Discussed at length with the patient and his son, overall he is very functional despite his advanced age. We discussed medical management versus surgical intervention, overall I think a left TCAR would be appropriate given his age and high bifurcation. Risks benefits alternatives discussed risks including bleeding, infection, nerve injury, stroke, need further surgery. He wished proceed. We will start him on dual antiplatelet therapy as well as statin therapy. will need cardiac risk assessment prior to intervention. Assessment & Plan (10/11/2024 10:00 AM CDT): [...] PCP. Primary hypertension 10/11/2024 Assessment & Plan (10/23/2024 11:02 AM CDT): Stable continue lisinopril Assessment & Plan (10/11/2024 9:57 AM CDT): Impression: Chronic and stable. Plan: Continue lisinopril and quinapril History of total knee arthroplasty, left 021 Primary osteoarthritis of left knee 01/01/2021 Overview (01/01/2021): Added automatically from request for surgery [id number] Encounters Date Type Department Care Team Description 11/11/2024 9:00 AM CDT Pre-Admission Testing [facility] PreAdmission Testing [facility] [place] [address] Preop examination (Primary Dx); Bilateral carotid artery stenosis; Pre-operative laboratory examination 11/08/2024 3:00 PM CDT Ancillary Procedure [facility] Cardiology at [address] [place] [phone] Pre-operative cardiovascular examination; Primary hypertension; History of syncope 11/07/2024 Orders Only [facility] PreAdmission Testing [address] [place] [address] Mikala Frank RN 10/29/2024 Orders Only [facility] Vascular and Vein Surgery [address] [place] [phone] Diamond Muñoz MD Pre-operative laboratory examination (Primary Dx) 10/24/2024 8:00 AM CDT Office Visit [facility] Cardiology at [address] [place] [phone] Linus Olivarez MD Carotid stenosis, bilateral (Primary Dx); Pre-operative cardiovascular examination; Mixed hyperlipidemia; Primary hypertension; History of syncope; Bifascicular block 10/24/2024 Documentation [facility] V[facility] Surgery [address] [place] [phone] Bharti Davison MA 10/24/2024 Telephone [facility] Vascular [facility] Vein Surgery [address] [place] [phone] Bharti Davison MA 10/23/2024 10:00 AM CDT Office Visit [facility] Vascular at [address] [place] [phone] Diamond Muñoz MD Carotid stenosis, bilateral (Primary Dx); Primary hypertension; Mixed hyperlipidemia 10/23/2024 9:00 AM CDT Ancillary Procedure [facility] Ve[facility] Surgery at [address] [place] [phone] Carotid stenosis, bilateral 10/23/2024 Orders Only [facility] Vascular at [address] [place] [phone] Diamond Muñoz MD Pre-operative cardiovascular examination (Primary Dx) 10/17/2024 7:05 AM CDT - 10/17/2024 11:59 PM CDT Hospital Encounter [facility] [employer] [address] [facility] [place] [address] Discharge Disposition: Discharge to home or self care 10/09/2024 9:30 AM CDT Office Visit [facility] Vascular at [address] [place] [phone] Tonya Levin NP Carotid stenosis, bilateral (Primary Dx); Primary hypertension 10/09/2024 Telephone [facility] Vascular and Vein Surgery [address] [place] [address] [address] [place] [phone] Diamond Muñoz MD 10/09/2024 Orders Only [facility]ascular and Vein Surgery [address] [place] [address] [address] [place] [phone] Diamond Muñoz MD Carotid stenosis, bilateral (Primary Dx) 10/03/2024 Telephone [facility] Vascular and Vein Surgery [address] [place] [address] [address] [place] [phone] Arina Granados from Last 3 Months Immunizations Immunization Administration Dates Next Due Pfizer SARS-CoV-2 Monovalent Vaccination (12+ Yrs) PURPLE 09/30/2020,09/09/2020 Surgical History Surgery Date Site/Laterality Comments TOTAL KNEE ARTHROPLASTY 06/05/2020 - 06/04/2021 Left Medical History Medical History Date Comments Hypertension Hypercholesteremia Hypothyroidism Carotid stenosis, bilateral Syncopal episodes Per pt and son pt had several episodes where pt locks up and eyes freeze. States thinks is vagal down vs seizures. Was hospitalized 06/2024, and carotid stenosis was found at that time. Family History Medical History Relation Name Comments Hypertension Other Stroke Other Relation Name Status Comments Other Social History Tobacco Use Types Packs/Day Years Used Date Smoking Tobacco: Every Day Cigarettes Cigars Smokeless Tobacco: Former Quit: 2008 Tobacco Cessation:Ready to Q uit: Not Asked; Counseling Given: Not Answered AUDIT-C Answer Date Recorded Q1: How often do you have a drink containing alcohol? Never 11/11/2024 Q2: How many drinks containi ng alcohol do you have on a typical day when you are drinking? Patient does not drink Frequency of Binge Drinking Not on file 02/2025 Personal Safety Answer Date Recorded Have you ever been in or are you currently in a harmful physical or emotional relationship or is someone making you feel afraid or unsafe? 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 Gender Identity Not on file Sexual Orientation Not on file Obstetrics History Last Filed Vital Signs Vital Sign Reading Time Taken Comments Blood Pressure 152/67 11/11/2024 9:02 AM CDT rt upper arm Pulse 69 11/11/2024 9:02 AM CDT Temperature 36.5 C (97.7 F) 11/11/2024 9:02 AM CDT Respiratory Rate 18 11/11/2024 9:02 AM CDT Oxygen Saturation 100% 11/11/2024 9:02 AM CDT Inhaled Oxygen Concentration - - Weight 64.4 kg (142 lb) 11/11/2024 9:02 AM CDT Height 170.2 cm (5' 7) 11/11/2024 9:02 AM CDT Body Mass Index 22.24 11/11/2024 9:02 AM CDT Plan of Treatment Upcoming Encounters Date Type Department Care Team (Latest Contact Info) Description 11/25/2024 7:30 AM CDT Hospital Encounter [facility] OR [address] [place] [phone] Diamond Muñoz MD [facility] [address] [address] 11/25/2024 7:30 AM CDT Anesthesia Event [facility] OR [address] [place] [phone] Citlalli Donnelly NP [address] [place] [address] 11/25/2024 7:30 AM CDT - 11/25/2024 9:45 AM CDT Surgery [facility] OR [address] [place] [phone] Diamond Muñoz MD [address] [facility] [address] [place] [phone] LEFT TRANSCAROTID ARTERIAL REVASCULARIZATION Scheduled Procedures Name Priority Associated Diagnoses Date/Ti me TRANSCAROTID ARTERIAL REVASCULARIZATION Bilateral carotid artery stenosis 11/25/2024 7:30 AM CDT Health Maintenance Due Date Last Done Comments Depression Screening 1935 DTaP/Tdap/Td Vaccine (1 - Tdap) 1946 Hepatitis B Screening 1953 Pneumococcal vaccine 65+ (1 of 2 - PCV) 1954 Zoster Vaccine (1 of 2) 1985 Well Visit 65+ 2000 Covid-19 Vaccine (3 - season) 2024, 09/09/2020 Influenza Vaccine (Season Ended) 2025 Fall Risk Assessment 11/11/2025 11/11/2024 Medical Devices Implanted Type Area Machine Shop Apprentice Device Identifier Shelf Expiration Date Model / Serial / Lot [employer] 6195-1-001 Cement Bone Simplex Gentamicin High Viscosity 40gm - Sn/A - [id number] Implanted:Qty: 1 on 01/19/2021 by Andreas Hanks MD at [facility] Left: Knee [employer] [id number] 10/02/2021 6195-1-001 / N/A / [id number] [employer] 6195-1-001 Cement Bone Simplex Gentamicin High Viscosity 40gm - [id number] Implanted:Qty: 1 on 01/19/2021 by Andreas Hanks MD at [facility] Left: Knee [employer] [id number] 10/02/2021 6195-1-001 / / [id number] [employer] [id number] Attune Cruciate Retain Cementless Knee Left 6 Component Femoral - [id number] Implanted:Qty: 1 on 01/19/2021 by Andreas Hanks MD at [facility] Left: Knee [employer] 09/02/2030 [id number] / / [id number] [employer] [id number] Attune 10mm Cruciate Retaining Fix Bearing Knee 6 Insert Tibial - [id number] Implanted:Qty: 1 on 01/19/2021 by Andreas Hanks MD at [facility] Left: Knee [employer] 02/02/2023 [id number] / / [id number] [employer] [id number] Attune S+ Cement Fix Bearing Knee 7 Baseplate Tibial - [id number] Implanted:Qty: 1 on 01/19/2021 by Andreas Hanks MD at [facility] Left: Knee [employer] 11/02/2030 [id number] / / [id number] Procedures Procedure Name Priority Date/Time Associated Diagnosis Comments EGFR Routine 11/11/2024 10:13 AM CDT Bilateral carotid artery stenosis DIFFERENTIAL AUTO Routine 11/11/2024 10:13 AM CDT Bilateral carotid artery stenosis ANTIBODY SCREEN Routine 11/11/2024 10:13 AM CDT Bilateral carotid artery stenosis ABO/RH Routine 11/11/2024 10:13 AM CDT Bilateral carotid artery stenosis VERIFY NOW CLOPIDOGREL Routine 10:13 AM CDT Pre-operative laboratory examination COMPREHENSIVE METABOLIC PANEL Routine 11/11/2024 10:13 AM CDT Bilateral carotid artery stenosis CBC WITH AUTO DIFFERENTIAL Routine 11/11/2024 10:13 AM CDT Bilateral carotid artery stenosis TYPE AND SCREEN 14 DAY Routine 5 10:13 AM CDT Bilateral carotid artery stenosis PROTIME-INR Routine 11/11/2024 10:13 AM CDT Bilateral carotid artery stenosis APTT Routine 11/11/2024 10:13 AM CDT Bilateral carotid artery stenosis ECG 12-LEAD Routine 11/11/2024 8:37 AM CDT Preop examination TRANSTHORACIC ECHO (TTE) COMPLETE W DOPPLER/CF WO CONTRAST Routine 11/08/2024 3:41 PM CDT Pre-operative cardiovascular examination Primary hypertension History of syncope ELECTROCARDIOGRAM REPORT Routine 10/24/2024 8:19 AM CDT Pre-operative cardiovascular examination Bifascicular block POCT LIPID PANEL Routine 10/24/2024 7:56 AM CDT Mixed hyperlipidemia US CAROTIDS DUPLEX BILATERAL Schedule Routine, Read Routine (OP Routine) 10/23/2024 9:43 AM CDT Carotid stenosis, bilateral CT BODY OUTSIDE REFERENCE Routine 10/17/2024 7:05 AM CDT from Last 3 Months Results * (ABNORMAL) eGFR (11/11/2024 10:13 AM CDT) eGFR 58(L) >=60 mL/min/1. 73 m2 Comment: Interpretive Data Reference Interval Normal >/= 90 mL/min/1.73m2 Mildly decreased* 60 - 89 mL/min/1.73m2 Mildly to moderately decreased 45 - 59 mL/min/1.73m2 Moderately to severely decreased 30 - 44 mL/min/1.73m2 Severely decreased 15 - 29 mL/min/1.73m2 Kidney Failure < 15 mL/min/1.73m2 *Relative to young adult level Estimated glomerular filtration rate is determined by the 2020 CKD-EPI equation recommended by the National Kidney Foundation (A Unifying Approach to GFR Estimation: Recommendations of the NKF-ASK Task Force on Reassessing the Inclusion of Race in Diagnosing Kidney Disease, JASN 2020). The CKD-EPI equation should not be used for patients with unstable renal function and has not been validated in children and those over 70. Current interpretive data was last reviewed 2021. Blood 11/11/2024 10:1 3 AM CDT 11/11/2024 10:23 AM CDT us Diamond Muñoz MD LAB BLOOD ORDERABLES Final Resul t [facility] [address] [facility] Department [place] [address] * Differential, auto (11/11/2024 10:13 AM CDT) Neutrophil abs 3.94 1.50 - 6.50 K/cumm Imm gran abs 0.03 0.00 - 0.10 K/cumm [facility] Lymphocyte abs 1.25 0.80 - 3.30 K/cumm [facility] Monocyte abs 0.75 0.20 - 0.80 K/cumm [facility] Eosinophil abs 0.13 0.00 - 0.50 K/cumm [facility] Basophil abs 0.06 0.00 - 0.10 K/cumm [facility] Neutrophil pct 63.9 % [facility] Comment: Interpretive Data Percent cell count reference ranges are not reported, since discordance with absolute values may lead to misinterpretation of CBC data. Current Interpretive Data was last revised on 2017. Imm gran pct 0.5 % [facility] Comment: Interpretive Data Percent cell count reference ranges are not reported, since discordance with absolute values may lead to misinterpretation of CBC data. Current Interpretive Data was last revised on 2017. Lymphocyte pct 20.3 % [facility] Comment: Interpretive Data Percent cell count reference ranges are not reported, since discordance with absolute values may lead to misinterpretation of CBC data. Current Interpretive Data was last revised on 2017. Monocyte pct 12.2 % [facility] Comment: Interpretive Data Percent cell count reference ranges are not reported, since discordance with absolute values may lead to misinterpretation of CBC data. Current Interpretive Data was last revised on 2017. Eosinophil pct 2.1 % [facility] Comment: Interpretive Data Percent cell count reference ranges are not reported, since discordance with absolute values may lead to misinterpretation of CBC data. Current Interpretive Data was last revised on 2017. Basophil pct 1.0 % [facility] Comment: Interpretive Data Percent cell count reference ranges are not reported, since discordance with absolute values may lead to misinterpretation of CBC data. Current Interpretive Data was last revised on 2017. Blood 11/11/2024 10:1 3 AM CDT 11/11/2024 10:23 AM CDT Diamond Muñoz MD LAB BLOOD ORDERABLES Final Resul t Performing Organization Address City/[facility]/ZIP Co de Phone Number [place] [address] * [facility] clopidogrel (11/11/2024 10:13 AM CDT) Pathologist [facility] clopidogrel 37 PRU Comment:Testing performed by : [facility], [address] [place]., [address] Blood 11/11/2024 10:1 3 AM CDT 11/11/2024 1:30 PM CDT Diamond Muñoz MD LAB BLOOD ORDERABLES Final Resul t Performing Organization Address [facility] de Phone Number [facility] [address] [address] * (ABNORMAL) CBC with auto differential (11/11/2024 10:13 AM CDT) [facility] WBC 6.16 3.80 - 9.90 K/cumm Hgb 12.4(L) 13.0 - 17.5 g/dL [facility] Hct 40.0 38.9 - 50.3 % [facility] Plt 331 150 - 400 K/cumm [facility] MPV 9.4 9.1 - 12.3 fL [facility] RBC 5.00 4.30 - 5.80 M/cumm [facility] MCV 80.0(L) 81.3 - 96.4 fL [facility] MCH 24.8(L) 27.1 - 33.3 pg [facility] MCHC 31.0(L) 32.3 - 35.7 g/dL [facility] RDW CV 15.3(H) 11.1 - 14.9 % [facility] RDW SD 44.4 35.7 - 48.1 fL [facility] NRBC abs 0.00 0.00 - 0.01 K/cumm [facility] Blood 11/11/2024 10:1 3 AM CDT 11/11/2024 10:23 AM CDT Diamond Muñzo MD LAB BLOOD ORDERABLES Final Resul t Performing Organization Address [facility] de Phone Number [place] [place] [address] * ABO/Rh (11/11/2024 10:13 AM CDT) ABO/Rh O Positive Blood 11/11/2024 10:1 3 AM CDT 11/11/2024 10:23 AM CDT [facility]/11/[facility]24 11:07 AM CDT Is this test being ordered in advance for a procedure?->Yes Expected date of procedure:->11/11/24 Has the patient been transfused in the past 3 months?->No Diamond Muñoz MD LAB BLOOD BANK TEST ORDERABLES F inal Result Performing Organization Address [facility] Phone Number [address] [place] [address] * aPTT (11/11/2024 10:13 AM CDT) aPTT 28 22 - 37 sec Comment: Interpretive data aPTT test has not been evaluated for monitoring heparin therapy. The anti-Xa is the preferred test. Current interpretive data was last revised on 2019. Blood 11/11/2024 10:1 3 AM CDT 11/11/2024 10:23 AM CDT Diamond Muñoz MD LAB BLOOD ORDERABLES Final Resul t Performing Organization Address [facility] de Phone Number [address] [place] [address] * Protime-INR (11/11/2024 10:13 AM CDT) PT 12.9 12.0 - 14.6 sec INR 1.0 0.9 - 1.2 [facility] Comment: Ref Range High Interpretive data Oral anticoagulant therapeutic ranges: Venous thromboembolism prophylaxis or treatment: 2.0-3.0 CARDIOLOGY Standard range: 2.0-3.0 High-intensity range: 2.5-3.5 Refer to indication-specific guidelines for appropriate target ranges for prosthetic heart valve replacement. Current interpretive data was last revised on 2019. Blood 11/11/2024 10:1 3 AM CDT 11/11/2024 10:23 AM CDT Diamond Muñoz MD LAB BLOOD ORDERABLES Final Resul t Performing Organization Address [facility] de Phone Number [address] [address] * Antibody screen (11/11/2024 10:13 AM CDT) Pathologist [facility] Alvina, indirect, Gel Interpretation Negative ABSC Blood 11/11/2024 10:1 3 AM CDT 11/11/2024 10:23 AM CDT Narrative [facility] - 11/11/2024 11:07 AM CDT Is this test being ordered in advance for a procedure?->Yes Expected date of procedure:->11/11/24 Has the patient been transfused in the past 3 months?->No Diamond Muñoz MD LAB BLOOD BANK TEST ORDERABLES F inal Result Performing Organization Address [facility] de Phone Number [address] [address] * (ABNORMAL) Comprehensive metabolic panel (11/11/2024 10:13 AM CDT) Pathologist [facility] Sodium 131(L) 135 - 145 mmol/L Potassium, pl 4.1 3.3 - 4.9 mmol/L [facility] Chloride 97 97 - 110 mmol/L [facility] CO2 23 22 - 32 mmol/L [facility] Anion gap 11 2 - 15 mmol/L [facility] BUN 24 6 - 25 mg/dL [facility] Creatinine 1.20 0.80 - 1.30 mg/dL [facility] Glucose 131 70 - 199 mg/dL [facility] Comment: Interpretive Data Fasting glucose >/= 126 mg/dl is diagnostic for diabetes. Fasting is defined as no caloric intake for at least 8 hours. Fasting glucose between 100 mg/dl to 125 mg/dl is diagnostic of prediabetes. In a patient with classic symptoms of hyperglycemia or hyperglycemic crisis, a random glucose >/= 200 mg/dl is diagnostic for diabetes. In the absence of unequivocal hyperglycemia, results should be confirmed by repeat testing. The classification and Diagnosis of Diabetes Diabetes Care 2021; 46: S19-S40. Current interpretive data was last revised 2022. Calcium 9.7 8.5 - 10.3 mg/dL [facility] Bilirubin, total 0.3 0.1 - 1.2 mg/dL [facility] Protein, pl 7.2 6.5 - 8.5 g/dL [facility] Albumin 4.2 3.5 - 5.0 g/dL [facility] Alk phos 109 40 - 130 Units/L [facility] ALT 9 7 - 55 Units/L [facility] AST 17 10 - 50 Units/L [facility] Blood 11/11/2024 10:1 3 AM CDT 11/11/2024 10:23 AM CDT Diamond Muñoz MD LAB BLOOD ORDERABLES Final Resul t [facility] [address] [facility] Department [place] [address] * ECG 12 lead (11/11/2024 8:37 AM CDT) Ventricular Rate EKG/Min 68 BPM [facility] Atrial Rate 68 BPM [facility] [place]-Interval (MSEC) 176 ms [facility] QRS-Interval (MSEC) 152 ms [facility] QT-Interval (MSEC) 414 ms [facility] QTc 440 ms [facility] P Wrens 77 degrees [facility] R Wrens -75 degrees [facility] T Wrens 65 degrees [facility] Diagnosis Normal sinus rhythm with sinus arrhythmia Right bundle branch block Left anterior fascicular block Bifascicular block Minimal voltage criteria for LVH, may be normal variant ( R in aVL ) Abnormal ECG No previous ECGs available Confirmed by DANK MARTIN M.D. ([id number]) on 11/11/2024 7:44:29 PM [facility] 11/11/2024 8:37 AM CDT 11/11/2024 7:44 PM CDT us Citlalli Donnelly NP ECG ORDERABLES Sherry terrence Result [facility] * TRANSTHORACIC ECHO (TTE) COMPLETE W DOPPLER/CF WO CONTRAST (11/08/2024 3:41 PM CDT) Estimated EF 60-65 % CONS SCIMAGE EF Mod BP 54 % CONS SCIMAGE Anatomical Region Laterality Modality Ultrasound 11/08/2024 3:08 PM CDT Narrative 11/08/2024 4:37 PM CDT [facility] [address] [facility], [address], [place] [address] P:[phone] P:[phone] Echocardiographic Report Patient Name: ERICK MAI D : 1935 Study Date: 11/08/2024 3:08:35 PM Gender: M Tech: Location: EDW Ref Provider: LINUS OLIVAREZ Height(Cm): 170 BSA: 1.72 Weight(Kg): 62.6 Heart Rate: 70 BP: 188 / 96 Quality: Good Order Provider: LINUS OLIVAREZ PROCEDURES: Echocardiographic Report: Transthoracic echocardiogram with complete 2D, M-Mode, and color Doppler examination. With Strain Analysis. INDICATIONS: History of Syncope, Z01.810 Encounter for preprocedural cardiovascular examination, and I10 Essential (primary) hypertension. MEASUREMENTS: 2D/MM Value Range Doppler Value Range EF Mod BP 54 % [ 52 - 72 ] AV Mean PG 2 mmHg EF Teich MM 65 % [ 52 - 72 ] AV Peak Brodie 1.13 m/s [ 1.00 - 1.70 ] Estimated EF 60-65 % AV Peak PG 5 mmHg LVIDd 2D 4.37 cm [ 4.20 - 5.80 ] AV VTI 21.37 cm LVIDd MM 4.58 cm [ 4.20 - 5.80 ] LVOT Peak Brodie 0.73 m/s [ 0.70 - 1.10 ] LVIDs 2D 2.66 cm [ 2.50 - 4.00 ] LVOT VTI 16.84 cm LVIDs MM 2.97 cm [ 2.50 - 4.00 ] MV E Peak Brodie 0.61 m/s [ 0.60 - 1.30 ] LVPWd 2D 1.00 cm [ 0.60 - 1.00 ] MV A Peak Brodie 0.88 m/s [ 1.00 - 1.20 ] LVPWd MM 1.12 cm [ 0.60 - 1.00 ] MV Decel Time 130 msec [ 104 - 258 ] IVSd 2D 1.12 cm [ 0.60 - 1.00 ] PV Peak Brodie 0.95 m/s [ 0.40 - 0.80 ] IVSd MM 1.12 cm [ 0.60 - 1.00 ] TR Peak Brodie 2.25 m/s [ 1.00 - 2.80 ] LA Dimension MM 3.60 cm [ 3.00 - 4.00 ] TR Peak PG 20 mmHg AoR Diam MM 3.57 cm [ 3.10 - 3.70 ] RVSP 28.00 mmHg [ 10.00 - 36.00 ] LA Volume Index 18 cc/m2 [ 16 - 34 ] Lateral E` 0.06 m/s [ 0.10 - 0.15 ] ACS MM 1.89 cm [ 1.50 - 2.60 ] E/E` 10 2D/MM Value Range Doppler Value Range - FINDINGS: Interpretation Site: Exam was interpreted at [facility]. Left Ventricle: Normal left ventricular systolic function. No focal wall motion abnormalities. Normal left ventricular size. Mild concentric left ventricular hypertrophy. Impaired diastolic relaxation Grade I. Ejection Fraction is visually estimated to be 60-65 %. Global Longitudinal Strain is -15 %. GLS is abnormal. Right Ventricle: Normal right ventricular size. Normal right ventricular systolic function. Left Atrium: There is mild enlargement of left atrium. Right Atrium: The right atrium is normal in size. Atrial Septum: Normal atrial septum. Mitral Valve: Mild mitral annular calcification. Mild mitral valve regurgitation. There is no hemodynamically significant mitral stenosis by Doppler. Aortic Valve: No evidence of hemodynamically significant aortic stenosis by Doppler. Aortic cusps appear mildly calcified. Aortic cusps appear moderately sclerotic. Trileaflet aortic valve. Mild aortic valve regurgitation. Tricuspid Valve: Normal appearance of the tricuspid valve. Normal right ventricular systolic pressure. Estimated peak RVSP is 28 mmHg. Mild tricuspid regurgitation. Pulmonic Valve: Normal appearance of the pulmonic valve. No pulmonic stenosis. Trivial regurgitation in the pulmonic valve. Pericardium: Trivial pericardial effusion. Aorta: No aortic root dilation. IVC: Normal size and normal respiratory collapse consistent with normal right atrial pressure (<5 mmHg). CONCLUSIONS: Normal left ventricular systolic function. No focal wall motion abnormalities. Normal left ventricular size. Mild concentric left ventricular hypertrophy. Impaired diastolic relaxation Grade I. Ejection Fraction is visually estimated to be 60-65 %. Global Longitudinal Strain is -15 %. GLS is abnormal. There is mild enlargement of left atrium. Mild mitral annular calcification. Mild mitral valve regurgitation. Aortic cusps appear mildly calcified. Aortic cusps appear moderately sclerotic. Mild aortic valve regurgitation. Mild tricuspid regurgitation. Normal sinus rhythm. Electronically Signed By: Linus Olivarez MD 11/08/2024 4:36:49 PM CDT Procedure Note Linus Olivarez MD - 11/08/2024 [facility], [address], [place] [address] P:[phone] P:[phone] Echocardiographic Report Patient Name: ERICK MAI D : 1935 Study Date: 11/08/2024 3:08:35 PM Gender: M Tech: Location: [facility] Ref Provider: LINUS OLIVAREZ Height(Cm): 170 BSA: 1.72 Weight(Kg): 62.6 Heart Rate: 70 BP: 188 / 96 Quality: Good Order Provider: LINUS OLIVAREZ PROCEDURES: Echocardiographic Report: Transthoracic echocardiogram with complete 2D, M-Mode, and color Dopplerexamination. With Strain Analysis. INDICATIONS: History of Syncope, Z01.810 Encounter for preprocedural cardiovascularexamination, and I10 Essential (primary) hypertension. MEASUREMENTS: 2D/MM Value Range Doppler ValueRange EF Mod BP 54 % [ 52 - 72 ] AV Mean PG 2mmHg EF Teich MM 65 % [ 52 - 72 ] AV Peak Brodie 1.13m/s [ 1.00 - 1.70 ] Estimated EF 60-65 % AV Peak PG 5mmHg LVIDd 2D 4.37 cm [ 4.20 - 5.80 ] AV VTI 21.37cm LVIDd MM 4.58 cm [ 4.20 - 5.80 ] LVOT Peak Brodie 0.73m/s [ 0.70 - 1.10 ] LVIDs 2D 2.66 cm [ 2.50 - 4.00 ] LVOT VTI 16.84cm LVIDs MM 2.97 cm [ 2.50 - 4.00 ] MV E Peak Brodie 0.61m/s [ 0.60 - 1.30 ] LVPWd 2D 1.00 cm [ 0.60 - 1.00 ] MV A Peak Brodie 0.88m/s [ 1.00 - 1.20 ] LVPWd MM 1.12 cm [ 0.60 - 1.00 ] MV Decel Time 130msec [ 104 - 258 ] IVSd 2D 1.12 cm [ 0.60 - 1.00 ] PV Peak Brodie 0.95m/s [ 0.40 - 0.80 ] IVSd MM 1.12 cm [ 0.60 - 1.00 ] TR Peak Brodie 2.25m/s [ 1.00 - 2.80 ] LA Dimension MM 3.60 cm [ 3.00 - 4.00 ] TR Peak PG 20mmHg AoR Diam MM 3.57 cm [ 3.10 - 3.70 ] RVSP 28.00mmHg [ 10.00 - 36.00 ] LA Volume Index 18 cc/m2 [ 16 - 34 ] Lateral E` 0.06m/s [ 0.10 - 0.15 ] ACS MM 1.89 cm [ 1.50 - 2.60 ] E/E` 10 2D/MM Value Range Doppler ValueRange - FINDINGS: Interpretation Site: Exam was interpreted at [facility]. Left Ventricle: Normal left ventricular systolic function. No focal wall motionabnormalities. Normal left ventricular size. Mild concentric left ventricular hypertrophy.Impaired diastolic relaxation Grade I. Ejection Fraction is visually estimated to be 60-65 %.Global Longitudinal Strain is -15 %. GLS is abnormal. Right Ventricle: Normal right ventricular size. Normal right ventricular systolicfunction. Left Atrium: There is mild enlargement of left atrium. Right Atrium: The right atrium is normal in size. Atrial Septum: Normal atrial septum. Mitral Valve: Mild mitral annular calcification. Mild mitral valve regurgitation. Thereis no hemodynamically significant mitral stenosis by Doppler. Aortic Valve: No evidence of hemodynamically significant aortic stenosis by Doppler.Aortic cusps appear mildly calcified. Aortic cusps appear moderately sclerotic.Trileaflet aortic valve. Mild aortic valve regurgitation. Tricuspid Valve: Normal appearance of the tricuspid valve. Normal right ventricularsystolic pressure. Estimated peak RVSP is 28 mmHg. Mild tricuspid regurgitation. Pulmonic Valve: Normal appearance of the pulmonic valve. No pulmonic stenosis. Trivialregurgitation in the pulmonic valve. Pericardium: Trivial pericardial effusion. Aorta: No aortic root dilation. IVC: Normal size and normal respiratory collapse consistent with normal rightatrial pressure (<5 mmHg). CONCLUSIONS: Normal left ventricular systolic function. No focal wall motionabnormalities. Normal left ventricular size. Mild concentric left ventricular hypertrophy.Impaired diastolic relaxation Grade I. Ejection Fraction is visually estimated to be 60-65 %.Global Longitudinal Strain is -15 %. GLS is abnormal. There is mild enlargement of left atrium. Mild mitral annular calcification. Mild mitral valve regurgitation. Aortic cusps appear mildly calcified. Aortic cusps appear moderatelysclerotic. Mild aortic valve regurgitation. Mild tricuspid regurgitation. Normal sinus rhythm. Electronically Signed By: Linus Olivarez MD 11/08/2024 4:36:49 PM CDT Linus Olivarez MD CV ECHO PROCEDURES Final Result * Electrocardiogram Report (10/24/2024 8:19 AM CDT) Linus Olivarez MD ECG ORDERABLES Final Res ult * (ABNORMAL) POCT lipid panel (10/24/2024 7:56 AM CDT) Cholesterol, POC 211 <200 MG/DL HDL, POC 70 >=40 mg/dL Triglycerides, POC 64 <=149 mg/dL LDL Cholesterol POC 129 <=129 mg/dL Chol/HDL Ratio, POC 3.0 NONE Non-HDL Cholesterol, POC 142 NONE mg/dL Cholesterol Total, POC 211(A) 30 - 199 mg/dL Capillary blood 10/24/2024 7 :56 AM CDT Linus Olivarez MD POINT OF CARE TEST ORDERA BLES Final Result * US Carotids Duplex Bilateral (10/23/2024 9:43 AM CDT) Anatomical Region Laterality Modality Vascular Bilateral Ultrasound 10/23/2024 8:47 AM CDT Narrative 10/23/2024 10:28 AM CDT [facility] [address] [facility] [place] [address] Carotid Duplex Ultrasound Report Patient Name: ERICK MAI Chelsi : 1935 (89y 2m) Study Date: 10/23/2024 8:47:50 AM Gender: M Upsetter: MAE Location: [facility] Ref Provider: DIAMOND MUÑOZ Quality: Adequate Order Provider: DIAMOND MUÑOZ PROCEDURES: Carotid Report: Carotid duplex examination of the extracranial arteries was performed using 2D, color and spectral Doppler. INDICATIONS: I65.23 Occlusion and stenosis of bilateral carotid arteries. HISTORY: HTN. HLD. COMPARISONS: The previous exam was completed on 06/30/24 @ [facility]: Rt ICA moderate, Rt bulb high grade, Lt ICA high grade. MEASUREMENTS: Right Value Left Value Rt Subc PSV 65 cm/sec Lt Subc PSV 126 cm/sec RT Prox CCA PSV 62 cm/sec LT Prox CCA PSV 59 cm/sec RT Prox CCA EDV 11 cm/sec LT Prox CCA EDV 7 cm/sec RT Distal CCA PSV 58 cm/sec LT Distal CCA PSV 47 cm/sec RT Distal CCA EDV 13 cm/sec LT Distal CCA EDV 7 cm/sec Rt Bulb PSV 107 cm/sec LT Prox ICA PSV 652 cm/sec Rt Bulb EDV 27 cm/sec LT Prox ICA EDV 189 cm/sec RT Prox ICA PSV 158 cm/sec LT Mid ICA PSV 75 cm/sec RT Prox ICA EDV 49 cm/sec LT Mid ICA EDV 11 cm/sec RT Mid ICA PSV 101 cm/sec LT Distal ICA PSV 31 cm/sec RT Mid ICA EDV 26 cm/sec LT Distal ICA EDV 13 cm/sec RT Distal ICA PSV 99 cm/sec LT ECA Prx PSV 120 cm/sec RT Distal ICA EDV 29 cm/sec LT ICA/CCA 13.88 ratio RT ECA Prx PSV 106 cm/sec Lt Vert Dst PSV 14 cm/sec RT ICA/CCA 2.72 ratio Rt Vert Dst PSV 0 cm/sec FINDINGS: Rt Common Carotid Artery: Duplex imaging of the right common carotid artery is within normal limits without evidence of atherosclerotic disease. Rt Internal Carotid Artery: The plaque in the right internal carotid artery appears to be heterogeneous, calcified and smooth. Significant atherosclerotic changes of the right internal carotid artery with elevated peak systolic velocity and end diastolic velocity, as above. 50-69% stenosis. Rt External Carotid Artery: Patent right external carotid artery with evidence of atherosclerotic disease present. Rt Vertebral Artery: The right vertebral flow could not be identified. Lt Common Carotid Artery: The plaque in the left CCA appears to be heterogeneous. Lt Internal Carotid Artery: The plaque in the left internal carotid artery appears to be heterogeneous and irregular. Significant atherosclerotic changes of the left internal carotid artery with elevated peak systolic velocity and end diastolic velocity, as above. >70% stenosis. Tortuous at distal segment. Lt External Carotid Artery: Patent left external carotid artery with evidence of atherosclerotic disease present. Lt Vertebral Artery: The left vertebral artery is patent with antegrade flow, low velocity. Comments: Brachial artery systolic blood pressure is 179 on the right, 186 on the left. CONCLUSIONS: 1. The right internal carotid artery disease is consistent with moderate 50-69% stenosis. 2. The left internal carotid artery disease is consistent with severe, greater than 70% stenosis. ATTESTATION: I have reviewed and interpreted the pertinent images and measurements of this study. I attest to the conclusions in the final report that is provided above. Electronically Signed By: Diamond Muñoz MD 10/23/2024 9:59:35 AM CDT Procedure Note Diamond Muñoz MD - 10/23/2024 [facility] [place] [place] [address] Carotid Duplex Ultrasound Report Patient Name: ERICK MAI D : 1935 (89y 2m) Study Date: 10/23/2024 8:47:50 AM Gender: M Upsetter: Location: [facility] Ref Provider: DIAMOND MUÑOZ Quality: Adequate Order Provider: DIAMOND MUÑOZ PROCEDURES: Carotid Report: Carotid duplex examination of the extracranial arterieswas performed using 2D, color and spectral Doppler. INDICATIONS: I65.23 Occlusion and stenosis of bilateral carotid arteries. HISTORY: HTN. HLD. COMPARISONS: The previous exam was completed on 06/30/24 @ [facility]: Rt ICA moderate, Rtbulb high grade, Lt ICA high grade. MEASUREMENTS: Right Value Left Value Rt Subc PSV 65 cm/sec Lt Subc PSV 126 cm/sec RT Prox CCA PSV 62 cm/sec LT Prox CCA PSV 59 cm/sec RT Prox CCA EDV 11 cm/sec LT Prox CCA EDV 7 cm/sec RT Distal CCA PSV 58 cm/sec LT Distal CCA PSV 47 cm/sec RT Distal CCA EDV 13 cm/sec LT Distal CCA EDV 7 cm/sec Rt Bulb PSV 107 cm/sec LT Prox ICA PSV 652 cm/sec Rt Bulb EDV 27 cm/sec LT Prox ICA EDV 189 cm/sec RT Prox ICA PSV 158 cm/sec LT Mid ICA PSV 75 cm/sec RT Prox ICA EDV 49 cm/sec LT Mid ICA EDV 11 cm/sec RT Mid ICA PSV 101 cm/sec LT Distal ICA PSV 31 cm/sec RT Mid ICA EDV 26 cm/sec LT Distal ICA EDV 13 cm/sec RT Distal ICA PSV 99 cm/sec LT ECA Prx PSV 120 cm/sec RT Distal ICA EDV 29 cm/sec LT ICA/CCA 13.88 ratio RT ECA Prx PSV 106 cm/sec Lt Vert Dst PSV 14 cm/sec RT ICA/CCA 2.72 ratio Rt Vert Dst PSV 0 cm/sec FINDINGS: Rt Common Carotid Artery: Duplex imaging of the right common carotidartery is within normal limits without evidence of atherosclerotic disease. Rt Internal Carotid Artery: The plaque in the right internal carotidartery appears to be heterogeneous, calcified and smooth. Significant atherosclerotic changesof the right internal carotid artery with elevated peak systolic velocity and enddiastolic velocity, as above. 50-69% stenosis. Rt External Carotid Artery: Patent right external carotid artery withevidence of atherosclerotic disease present. Rt Vertebral Artery: The right vertebral flow could not be identified. Lt Common Carotid Artery: The plaque in the left CCA appears to beheterogeneous. Lt Internal Carotid Artery: The plaque in the left internal carotid arteryappears to be heterogeneous and irregular. Significant atherosclerotic changes of theleft internal carotid artery with elevated peak systolic velocity and end diastolicvelocity, as above. >70% stenosis. Tortuous at distal segment. Lt External Carotid Artery: Patent left external carotid artery withevidence of atherosclerotic disease present. Lt Vertebral Artery: The left vertebral artery is patent with antegradeflow, low velocity. Comments: Brachial artery systolic blood pressure is 179 on the right, 186on the left. CONCLUSIONS: 1. The right internal carotid artery disease is consistent with [id number]% stenosis. 2. The left internal carotid artery disease is consistent with severe,greater than 70% stenosis. ATTESTATION: I have reviewed and interpreted the pertinent images and measurements ofthis study. I attest to the conclusions in the final report that is provided above. Electronically Signed By: Diamond Muñoz MD 10/23/2024 9:59:35 AM CDT Diamond Muñoz MD [facility] US PROCEDURES Final Result * CT Body Outside Reference (10/17/2024 7:05 AM CDT) Narrative [email or web address] - 10/24/2024 11:04 AM CDT This order has been auto-finalized and does not contain a result. us Provider Transcribed Order IMG CT PROCEDURES Fin al Result [email or web address] from Last [address] [place] [address] HEALTHCARE Advance Directives For more information, please contact: [phone] Documents on File Type Date Recorded Patient Filament Tester Expl anation ADVANCE DIRECTIVE 10/10/2024 2:44 PM LEBRON boss Will.pdf Power of Outboard Motor Tester 10/10/2024 2:43 PM Broderick groveer Of Outboard Motor Tester.pdf ADVANCE DIRECTIVE 10/10/2024 2:43 PM LEBRON boss Will.pdf Power of Outboard Motor Tester 10/10/2024 2:43 PM LEBRON [place] POA.pdf Healthcare Agents on File Name Relationship Healthcare Agent [facility] p Communication Broderick Sergei Son Health Care Agent [email or web address] Environmental Manager Relationship Specialty Start Date End Date Andrew Hart MD [address] [place] [address] PCP - General Family Medicine 11/19/20 Robina Cheema PA [address] [place] [address] Physician Lan Engineer Orthopedic Surgery 01/19/21 Linus Olivarez MD [address] [place] [address] Consulting Physician Cardiology 11/13/24
--- OUTSIDE RECORDS SUMMARY | 2024-11-18 07:45 | XMS_ITS | Referral Summary ---
Author Organization [facility] [place] [address] Address [address] [place] [address] Care Team Providers Care Chemical Recovery Operator Name Role Phone Andrew Hart MD Primary Care Prov ider DeniRobina janeKim PA Unavailable [phone] Linus Olivarez MD Unavailable Encounters Date Type Department Care Team Description 11/11/2024 9:00 AM CDT Pre-Admission Testing [facility] PreAdmission Testing [address] [place] [address] Preop examination (Primary Dx); Bilateral carotid artery stenosis; Pre-operative laboratory examination 11/08/2024 3:00 PM CDT Ancillary Procedure [facility] Cardiology at [address] [place] [address] Pre-operative cardiovascular examination; Primary hypertension; History of syncope 11/07/2024 Orders Only [facility] PreAdmission Testing [address] [place] [address] Mikala Frank, RN 10/29/2024 Orders Only [facility] Vascular and Vein Surgery [address] [place] [address] Diamond Muñoz MD Pre-operative laboratory examination (Primary Dx) 10/24/2024 Documentation [facility] Vascular and Vein Surgery [address] [place] [address] Bharti Davison MA 10/24/2024 Telephone [facility] Vascular and Vein Surgery [address] [phone] Bharti Davison MA 10/24/2024 8:00 AM CDT Office Visit [facility] Cardiology at [address] [place] [phone] Linus Olivarez MD Carotid stenosis, bilateral (Primary Dx); Pre-operative cardiovascular examination; Mixed hyperlipidemia; Primary hypertension; History of syncope; Bifascicular block 10/23/2024 Orders Only [facility] Vascular at [address] [place] [phone] Diamond Muñoz MD Pre-operative cardiovascular examination (Primary Dx) 10/23/2024 10:00 AM CDT Office Visit [facility] Vascular at [address] [place] [phone] Diamond Muñoz MD Carotid stenosis, bilateral (Primary Dx); Primary hypertension; Mixed hyperlipidemia 10/23/2024 9:00 AM CDT Ancillary Procedure [facility] Vascular and Vein Surgery at [address] [place] [phone] Carotid stenosis, bilateral 10/17/2024 7:05 AM CDT - 10/17/2024 11:59 PM CDT Hospital Encounter [facility] [employer] [address] [place] [address] Discharge Disposition: Discharge to home or self care 10/09/2024 Telephone [facility] Vascular and Vein Surgery [address] [phone] Diamond Muñoz MD 10/09/2024 Orders Only [facility] Vascular and Vein Surgery [address] [place] [phone] Diamond Muñoz MD Carotid stenosis, bilateral (Primary Dx) 10/09/2024 9:30 AM CDT Office Visit [facility] Vascular at [address] [place] [phone] Tonya Levin NP Carotid stenosis, bilateral (Primary Dx); Primary hypertension 10/03/2024 Telephone [facility] Vascular and Vein Surgery [address] [place] [phone] Arina Granados from Last 3 Months [...] Noted Date Diagnosed Date Pre-operative cardiovascular examination History of syncope 10/24/2024 Bifascicular block 10/24/2024 [...] (01/01/2021): Added automatically from request for surgery [id number] Immunizations Immunization Administration Dates Next Due Pfizer [...] on file 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 Gender Identity Not on file Sexual Orientation [...] Description 11/25/2024 7:30 AM CDT Hospital Encounter [facility] [place] [address] [place] [address] Diamond Muñoz MD [address] [facility] [address] [place] [address] 11/25/2024 7:30 AM CDT Anesthesia Event [facility] OR [address] [place] [address] Citlalli Donnelly NP [address] [place] [address] 11/25/2024 7:30 AM CDT - 11/25/2024 9:45 AM CDT Surgery [facility] [place] [address] [place] [address] Diamond Muñoz MD [address] [facility] [address] [place] [phone] LEFT TRANSCAROTID ARTERIAL REVASCULARIZATION Scheduled Procedures Name Priority Associated Diagnoses Date/Ti me TRANSCAROTID ARTERIAL REVASCULARIZATION Bilateral carotid artery stenosis 11/25/2024 7:30 AM CDT Medical Devices Implanted Type Area Veterinary Manager Device Identifier Shelf Expiration Date Model / Serial / Lot [employer] 6195-1-001 Cement Bone Simplex Gentamicin High Viscosity 40gm - Sn/A - [id number] Implanted:Qty: 1 on 01/19/2021 by Andreas Hanks MD at [facility] Left: Knee [employer] [id number] 10/02/2021 6195-1-001 / N/A / [id number] [employer] 6195-1-001 Cement Bone Simplex Gentamicin High Viscosity 40gm - [id number] Implanted:Qty: 1 on 01/19/2021 by Andreas Hanks MD at [facility] Left: Knee [employer] [id number] 10/02/2021 6195-1-001 / / [id number] [employer] [id number] Attune Cruciate Retain Cementless Knee Left 6 Component Femoral - [id number] Implanted:Qty: 1 on 01/19/2021 by Andreas Hanks MD at [facility] Left: Knee [employer] 09/02/2030 [id number] / / [id number] [employer] [id number] Attune 10mm Cruciate Retaining Fix Bearing Knee 6 Insert Tibial - [id number] Implanted:Qty: 1 on 01/19/2021 by Andreas Hanks MD at [facility] Left: Knee [employer] 02/02/2023 [id number] / / [id number] [employer] [id number] Attune S+ Cement Fix Bearing Knee 7 Baseplate Tibial - [id number] Implanted:Qty: 1 on 01/19/2021 by Andreas Hanks MD at [facility] Left: Knee [employer] 11/02/2030 [id number] / / [id number] Procedures Procedure Name Priority Date/Time Associated Diagnosis [...] stenosis TYPE AND SCREEN 14 DAY Routine 10:13 AM CDT Bilateral carotid artery stenosis [...] * (ABNORMAL) eGFR (11/11/2024 10:13 AM CDT) [facility] eGFR 58(L) >=60 mL/min/1. 73 m2 Comment: [...] MD LAB BLOOD ORDERABLES Final Resul t [facility] [address] [place] [address] * Differential, auto (11/11/2024 10:13 AM CDT) Pathologist [facility] Neutrophil abs 3.94 1.50 - 6.50 K/cumm Imm gran abs 0.03 0.00 - 0.10 K/cumm [facility] Lymphocyte abs 1.25 0.80 - 3.30 K/cumm [facility] Monocyte abs 0.75 0.20 - 0.80 K/cumm [facility] Eosinophil abs 0.13 0.00 - 0.50 K/cumm [facility] Basophil abs 0.06 0.00 - 0.10 K/cumm [facility] Neutrophil pct 63.9 % [facility] Comment: Interpretive Data Percent cell count reference ranges are not reported, since discordance with absolute values may lead to misinterpretation of CBC data. Current Interpretive Data was last revised on 2017. Imm gran pct 0.5 % [facility] Comment: Interpretive Data Percent cell count reference ranges are not reported, since discordance with absolute values may lead to misinterpretation of CBC data. Current Interpretive Data was last revised on 2017. Lymphocyte pct 20.3 % [facility] Comment: Interpretive Data Percent cell count reference ranges are not reported, since discordance with absolute values may lead to misinterpretation of CBC data. Current Interpretive Data was last revised on 2017. Monocyte pct 12.2 % [facility] Comment: Interpretive Data Percent cell count reference ranges are not reported, since discordance with absolute values may lead to misinterpretation of CBC data. Current Interpretive Data was last revised on 2017. Eosinophil pct 2.1 % [facility] Comment: Interpretive Data Percent cell count reference ranges are not reported, since discordance with absolute values may lead to misinterpretation of CBC data. Current Interpretive Data was last revised on 2017. Basophil pct 1.0 % [facility] Comment: Interpretive Data Percent cell count reference ranges are not reported, since discordance with absolute values may lead to misinterpretation of CBC data. Current Interpretive Data was last revised on 2017. Blood 11/11/2024 10:1 3 AM CDT 11/11/2024 10:23 AM CDT Diamond Muñoz MD LAB BLOOD ORDERABLES Final Resul t Performing Organization Address City/[facility]/ZIP Co de Phone Number MARBELLA [address] [place] [address] * VerifyNow clopidogrel (11/11/2024 10:13 AM CDT) [employer] clopidogrel 37 PRU Comment:Testing performed by : [facility], [address] [facility], [place]., [address] Blood 11/11/2024 10:1 3 AM CDT 11/11/2024 1:30 PM CDT Diamond Muñoz MD LAB BLOOD ORDERABLES Final Resul t [place] [place] [address] * (ABNORMAL) CBC with auto differential (11/11/2024 10:13 AM CDT) [facility] WBC 6.16 3.80 - 9.90 K/cumm Hgb 12.4(L) 13.0 - 17.5 g/dL [facility] Hct 40.0 38.9 - 50.3 % [facility] Plt 331 150 - 400 K/cumm [facility] MPV 9.4 9.1 - 12.3 fL [facility] RBC 5.00 4.30 - 5.80 M/cumm [facility] MCV 80.0(L) 81.3 - 96.4 fL [facility] MCH 24.8(L) 27.1 - 33.3 pg [facility] MCHC 31.0(L) 32.3 - 35.7 g/dL [facility] RDW CV 15.3(H) 11.1 - 14.9 % [facility] RDW SD 44.4 35.7 - 48.1 fL [facility] NRBC abs 0.00 0.00 - 0.01 K/cumm [facility] Blood 11/11/2024 10:1 3 AM CDT 11/11/2024 10:23 AM CDT Diamond Muñoz MD LAB BLOOD ORDERABLES Final Resul t Performing Organization Address [facility] de Phone Number [facility] [address] [place] [address] * ABO/Rh (11/11/2024 10:13 AM CDT) [facility] ABO/Rh O Positive Blood 11/11/2024 10:1 3 AM CDT 11/11/2024 10:23 AM CDT Narrative [facility] - 11/11/2024 11:07 AM CDT Is this test being ordered in advance for a procedure?->Yes Expected date of procedure:->11/11/24 Has the patient been transfused in the past 3 months?->No Diamond Muñoz MD LAB BLOOD BANK TEST ORDERABLES F inal Result Performing Organization Address City/[facility] Co de Phone Number MARBELLA [address] [address] * aPTT (11/11/2024 10:13 AM CDT) aPTT 28 22 - 37 sec Comment: Interpretive data aPTT test has not been evaluated for monitoring heparin therapy. The anti-Xa is the preferred test. Current interpretive data was last revised on 2019. Blood 11/11/2024 10:1 3 AM CDT 11/11/2024 10:23 AM CDT Diamond Muñoz MD LAB BLOOD ORDERABLES Final Resul t Performing Organization Address [facility] de Phone Number [address] [address] * Protime-INR (11/11/2024 10:13 AM CDT) PT 12.9 12.0 - 14.6 sec INR 1.0 0.9 - 1.2 [facility] Comment: Ref Range High Interpretive data [...] ORDERABLES Final Resul t Performing Organization Address City/[facility] Co de Phone Number [address] [place] [address] * Antibody screen (11/11/2024 10:13 AM CDT) Alvina, indirect, Gel Interpretation Negative ABSC Blood 11/11/2024 10:1 3 AM CDT 11/11/2024 10:23 AM CDT Narrative MARBELLA - 11/11/2024 11:07 AM CDT Is this test being ordered in advance for a procedure?->Yes Expected date of procedure:->11/11/24 Has the patient been transfused in the past 3 months?->No Diamond Muñoz MD LAB BLOOD BANK TEST ORDERABLES F inal Result [facility] [address] [place] [address] * (ABNORMAL) Comprehensive metabolic panel (11/11/2024 10:13 AM CDT) Sodium 131(L) 135 - 145 mmol/L Potassium, pl 4.1 3.3 - 4.9 mmol/L [facility] Chloride 97 97 - 110 mmol/L [facility] CO2 23 22 - 32 mmol/L [facility] Anion gap 11 2 - 15 mmol/L [facility] BUN 24 6 - 25 mg/dL [facility] Creatinine 1.20 0.80 - 1.30 mg/dL [facility] Glucose 131 70 - 199 mg/dL [facility] Comment: Interpretive Data Fasting glucose >/= [...] 2022. Calcium 9.7 8.5 - 10.3 mg/dL [facility] Bilirubin, total 0.3 0.1 - 1.2 mg/dL [facility] Protein, pl 7.2 6.5 - 8.5 g/dL [facility] Albumin 4.2 3.5 - 5.0 g/dL [facility] Alk phos 109 40 - 130 Units/L [facility] ALT 9 7 - 55 Units/L [facility] AST 17 10 - 50 Units/L [facility] Blood 11/11/2024 10:1 3 AM CDT 11/11/2024 10:23 AM CDT Diamond Muñoz MD LAB BLOOD ORDERABLES Final Resul t Performing Organization Address City/[facility]/ZIP Co de Phone Number MARBELLA [address] [facility] [address] [place] [address] * ECG 12 lead (11/11/2024 8:37 AM CDT) Ventricular Rate EKG/Min 68 BPM [facility] Atrial Rate 68 BPM [facility] UT-Interval (MSEC) 176 ms [facility] QRS-Interval (MSEC) 152 ms [facility] QT-Interval (MSEC) 414 ms [facility] QTc 440 ms [facility] P [place] 77 degrees [facility] R [place] -75 degrees [facility] T [place] 65 degrees [facility] Diagnosis Normal sinus rhythm with sinus arrhythmia Right bundle branch block Left anterior fascicular block Bifascicular block Minimal voltage criteria for LVH, may be normal variant ( R in aVL ) Abnormal ECG No previous ECGs available Confirmed by DANK MARTIN M.D. ([id number]) on 11/11/2024 7:44:29 PM [facility] 11/11/2024 8:37 AM CDT 11/11/2024 7:44 PM CDT Citlalli Donnelly BUSINESS AND SERVICES INSTRUCTOR ECG ORDERABLES Sherry l Result Performing Organization Address City/[facility]/ZIP Co de Phone Number [facility] * TRANSTHORACIC ECHO (TTE) COMPLETE W DOPPLER/CF WO CONTRAST (11/08/2024 3:41 PM CDT) Estimated EF 60-65 % CONS SCIMAGE EF Mod BP 54 % CONS SCIMAGE Anatomical Region Laterality Modality Ultrasound 11/08/2024 3:08 PM CDT Narrative 11/08/2024 4:37 PM CDT [facility] Cardiology [address], [address], [place] [address] P:[phone] P:[phone] Echocardiographic Report Patient Name: ERICK MAI D [...] FINDINGS: Interpretation Site: Exam was interpreted at [facility]. Left Ventricle: Normal left ventricular systolic function. [...] Procedure Note Linus Olivarez MD - 11/08/2024 [facility] Cardiology [facility] [facility], [address], [place] [address] P:[phone] P:[phone] Echocardiographic Report Patient Name: ERICK MAIChelsi : 1935 Study Date: 11/08/2024 3:08:35 PM [...] FINDINGS: Interpretation Site: Exam was interpreted at [facility]. Left Ventricle: Normal left ventricular systolic function. [...] Capillary blood 10/24/2024 7 :56 AM CDT us Linus Olivarez MD POINT OF CARE TEST ORDERA BLES Final Result * US Carotids Duplex Bilateral (10/23/2024 9:43 AM CDT) Anatomical Region Laterality Modality Vascular Bilateral Ultrasound 10/23/2024 8:47 AM CDT Narrative 10/23/2024 10:28 AM CDT Vascular & Vein Surgery [address] [facility] [place] [address] Carotid Duplex Ultrasound Report Patient Name: ERICK MAI Chelsi : 1935 (89y 2m) Study Date: 10/23/2024 8:47:50 AM Gender: M Assistant Art Director: Location: [facility] Ref Provider: DIAMOND MUÑOZ Quality: [...] MD - 10/23/2024 Vascular & Vein Surgery [address] [place] [address]. [place] [address] Carotid Duplex Ultrasound Report Patient Name: ERICK MAIChelsi : 1935 (89y 2m) Study Date: 10/23/2024 8:47:50 AM Gender: M Assistant Art Director: Location: [facility] Provider: DIAMOND MUÑOZ Quality: Adequate Order Provider: [...] internal carotid artery disease is consistent with zhvogukd50-93% stenosis. 2. The left internal carotid artery disease is consistent with severe,greater than 70% stenosis. ATTESTATION: I have reviewed and interpreted the pertinent images and measurements ofthis study. I attest to the conclusions in the final report that is provided above. Electronically Signed By: Diamond Muñoz MD 10/23/2024 9:59:35 AM CDT Diamond Muñoz MD IMG US PROCEDURES Final Result * CT Body Outside Reference (10/17/2024 7:05 AM CDT) Narrative [facility] - 10/24/2024 11:04 AM CDT This order has been auto-finalized and does not contain a result. us Provider Transcribed Order IMG CT PROCEDURES Fin al Result [facility] from Last 3 Months Insurance [facility] Advance Directives For more information, please contact: [phone] Documents on File Type Date Recorded Patient Analysis Evaluator Expl anation ADVANCE DIRECTIVE 10/10/2024 2:44 PM LEBRON Alcala ving Will.pdf Power of Optical Engineering Manager 10/10/2024 2:43 PM Broderick Dowling ower Of Optical Engineering Manager.pdf ADVANCE DIRECTIVE 10/10/2024 2:43 PM LEBRON Li ving Will.pdf Power of Optical Engineering Manager 10/10/2024 2:43 PM LEBRON [place] POA.pdf Healthcare Agents on File Name Relationship Healthcare Agent [facility] p Communication Broderick Mai [facility] Health Care Agent [email or web address] Care Teams Chemical Recovery Operator Relationship Specialty Start Date End Date Andrew Hart MD [address] [place] [address] PCP - General Family Medicine 11/19/20 Robina Cheema PA [address] [place] [address] Physician [facility] 01/19/21 Linus Olivarez MD [address], [place] [address] [address] Consulting Physician Cardiology 11/13/24
== END 2024-11-18 07:41 | disposition home or self-care (01) ==
PROVIDERS: PCP Family Medicine Adolescent Medicine; Visit Provider Internal Medicine Cardiovascular Disease
DX: Z01.810 Encounter for preprocedural cardiovascular examination (principal); I10 Essential (primary) hypertension; I65.23 Occlusion and stenosis of bilateral carotid arteries
CPT/HCPCS: 78452; 93017; A9502; J2785